=== PATIENT | male | born 1950 | race African-American/Black ===

== ENCOUNTER → 2022-04-01 13:08 | Outpatient (REF) | payer MEDICARE, SELFPAY ==
--- NOTE | 2022-04-01 13:41 | CA_ITS ---
Transthoracic Echocardiogram Patient (Last, First, Middle): Victoriano Patricia, Gender: Male Date of : 1950 Age: 72 Procedure Date: 04/01/2022 Procedure Type: Transthoracic Echocardiogram Location: OP Height: 167.64 cm Weight: 81.65 kg BSA: 1.91 m2 Heart Rate: 65 bpm BP: 138 / 64 mmHg Pediatric Licensed Practical Nurse: DOMO Referring MD: Pam Torres NP Symptoms: unspecified systolic congestive heart failur Study Quality: Adequate w contrast ECG Rhythm: Sinus Conclusions: - The left ventricular systolic function is severely decreased. The visually estimated ejection fraction is between 15-20%. - The apex, apical anterior, apical inferior, basal inferior, apical septum, mid inferoseptal, mid anteroseptal, and basal inferolateral segments are akinetic. - No obvious valvular pathology seen on this study. Findings Procedure Information Contrast agent, definity, is being given per protocol without apparent complications. Left Ventricle Moderately increased left ventricular cavity size. The left ventricular systolic function is severely decreased. The visually estimated ejection fraction is between 15-20%. There is severe global hypokinesis. E/E prime ratio is between 8 and 15 consistent with indeterminate filling pressures. Evidence suggests grade I (mild) diastolic dysfunction. There is mild septal and mild basal asymmetric hypertrophy. Wall Motion Rest Echo Findings The apex, apical anterior, apical inferior, basal inferior, apical septum, mid inferoseptal, mid anteroseptal, and basal inferolateral segments are akinetic. Right Ventricle Normal right ventricular cavity size and systolic function. There is a pacemaker wire seen in the right ventricle. Atria The left atrium is mildly dilated. The right atrium is normal in size. Aortic Valve There is a normal trileaflet aortic valve. There is mild calcification of the aortic valve. There is no aortic valve stenosis. There is trace (trivial) aortic valve regurgitation. Mitral Valve There is mild mitral annular calcification. There is trace mitral valve regurgitation. There is no mitral valve stenosis. Pulmonic Valve The pulmonic valve is likely normal. Tricuspid Valve There is trace tricuspid valve regurgitation. There is no evidence of pulmonary hypertension. Great Vessels The asc aorta is normal in size. Venous The inferior vena cava is normal in size and collapses greater than 50% with inspiration. Pericardium/Pleural There is a small pericardial effusion. Prior Study Comparison No prior study available for comparison. Recommendations, Care & Conclusions No obvious valvular pathology seen on this study. Measurements 2D Linear Measurements IVSd: 1.29 0.6-0.9/0.6-1.0 cm LVIDd: 6.48 3.9-5.3/4.2-5.9 cm LVIDd Index: 3.39 2.4-3.2/2.2-3.1 cm/m2 LVIDs: 4.64 2.0-3.6 cm LVPWd: 0.86 0.7-1.1 cm LA Diam: 3.60 2.7-3.8/3.0-4.0 cm LAIDs Index: 1.88 1.5-2.3 cm/m2 LV Mass: 386.39 67-162/88-224 g LV Mass Index: 202.30 43-95/49-115 g/m2 LVOT Diam: 2.10 3.0+(-)1.3 cm 2D Systolic Function EF 4C: 29.90 >55% EF 2C: 24.60 >55% Mitral Valve MV Pk E: 0.41 MV PK A: 0.60 MV Decel Time: 223.00 E/A: 0.70 E'Lateral: 3.15 E'Medial: 4.03 E/E' Med: 10.20 E/E' Lat: 13.00 PHT: 65.00 MVA PHT: 3.38 Decel Mcminn: 1.84 Aortic Valve AoV Pk Edilson: 1.73 AoV Mn Edilson: 1.17 AoV VTI: 0.33 AoV Pk Grad: 12.00 Aov Mn Grad: 7.00 NANCY Cont.VTI: 1.74 LVOT LVOT Pk Edilson: 0.88 LVOT Mn Edilson: 0.61 LVOT VTI: 0.17 LVOT Pk Grad: 3.00 LVOT Mn Grad: 2.00 LVOT Diam: 2.10 LVOT Area: 3.46 Diastolic Function MV Pk E: 0.41 MV Pk A: 0.60 E/A: 0.70 E'Medial: 4.03 E/E' Med: 10.20 E' Laterial: 3.15 E/E' Lat: 13.00 Right Ventricle TAPSE (mm): 20.30 TVS' Edilson: 11.20 Tricuspid Valve TR Pk Edilson: 2.33 TR Pk Grad: 22.00 RA Press: 3.00 RVSP: 25.00 Great Vessels Aorta Sinus of Valsalva: 3.20 2.0-3.5 cm Ao Asc: 3.50 2.1-3.4 cm Pulmonary Veins Pulm Vein S/D 1.50 Pulmonary Valve PV Pk Edilson: 1.04 Peak PV Grad: 4.00 Updated in Other Vendor System with Status of Final Volodymyr Ortega MD electronically signed on 04/02/2022 1:01:10 PM with status of Final
== END ==
LOC: HO.CARD 13:08
PROVIDERS: Visit Provider Nurse Practitioner Primary Care
DX: I50.20 Unspecified systolic (congestive) heart failure (principal)
CPT/HCPCS: 93306; Q9957

== ENCOUNTER 2022-04-04 15:02 | Emergency (ER) | payer MEDICARE, MEDICAID, SELFPAY ==
--- NOTE | 2022-04-04 | ECG_ITS ---
Test Reason : CHEST PAIN Blood Pressure : / mmHG Vent. Rate : 066 BPM Atrial Rate : 066 BPM P-R Int : 230 ms QRS Dur : 112 ms QT Int : 458 ms P-R-T Axes : 049 -12 052 degrees QTc Int : 480 ms Sinus rhythm with 1st degree A-V block Possible Left atrial enlargement Left axis deviation Minimal voltage criteria for LVH, may be normal variant ( [place] product ) Anteroseptal infarct , age undetermined Abnormal ECG No previous ECGs available Referred By: Generic ED Physician Electronically Signed By:LUIZ WILEY MD
--- NOTE | 2022-04-04 | ECG_ITS ---
Test Reason : REPEAT Blood Pressure : / mmHG Vent. Rate : 065 BPM Atrial Rate : 065 BPM P-R Int : 230 ms QRS Dur : 110 ms QT Int : 456 ms P-R-T Axes : 044 -26 035 degrees QTc Int : 474 ms Sinus rhythm with 1st degree A-V block Possible Left atrial enlargement Minimal voltage criteria for LVH, may be normal variant ( [place] product ) Septal infarct (cited on or before 04-APR-2022) Abnormal ECG When compared with ECG of 04-APR-2022 15:57, No significant change was found Referred By: Generic ED Physician Electronically Signed By:LUIZ WILEY MD
[2022-04-04 15:51] VITALS: BP 124/67; PULSE 74; RESP 18; TEMP 36.7; O2SAT 99; BMI 28.1
[2022-04-04 16:15] LABS: MANUAL DIFF FLAG NO
[2022-04-04 16:16] LABS: Basophils Percent Auto 0.3 % (0-2); Eosinophils Absolute Auto 0.1 X10*3/uL (0.0-0.4); Hematocrit 46.6 % (42.0-52.0); Hemoglobin 15.3 g/dl (14.0-18.0); Imm Gran Abs Auto 0.03 X10*3/uL (0.00-0.03); Imm Gran Pct Auto 0.3 % (0.0-0.4); Lymphocytes Absolute Auto 2.1 X10*3/uL (1.2-4.9); Lymphocytes Percent Auto 22.9 % (20-40); Mean Corpuscular HGB Conc 32.8 g/dl (31.0-36.0); Mean Corpuscular Hemoglobin 30.6 pg (27.0-33.0); Mean Corpuscular Volume 93.2 fL (80.0-98.0); Mean Platelet Volume 9.2 fL (9.4-12.4); Monocytes Absolute Auto 0.8 X10*3/uL (0.1-1.2); Monocytes Percent Auto 8.8 % (2-11); Neutrophils Absolute Auto 6.1 x10*3/uL (2.0-8.3); Neutrophils Percent Auto 66.7 % (45-73); Platelet Count 182 X10*3/uL (160-400); Red Cell Distribution Width 13.2 % (11.0-16.0); White Blood Count 9.1 X10*3/uL (4.8-10.8)
[2022-04-04 16:37] LABS: Alanine Aminotransferase 57 U/L (0-40); Albumin Level 4.4 g/dL (3.5-5.0); Alkaline Phosphatase 104 U/L (39-117); Anion Gap 16 (12-20); Aspartate Amino Transferase 54 U/L (5-37); Bilirubin Total 0.6 mg/dL (0.0-1.0); Blood Urea Nitrogen 15 mg/dL (9-16); Calcium 8.9 mg/dL (8.4-10.2); Carbon Dioxide 26 mmol/L (22-29); Chloride 102 mmol/L (96-108); Creatinine Clr Calc Pharmacy 38.1; Estimated Glomerular Filt Rate 38; Glucose Random 103 mg/dL (60-115); Potassium 3.9 mmol/L (3.3-5.1); Sodium 140 mmol/L (135-145); Total Protein 6.6 g/dL (6.5-8.0)
[2022-04-04 16:42] LABS: Troponin-I High Sensitivity 12.4 ng/L (<3.5-35.0)
--- NOTE | 2022-04-04 17:51 | ED.GENADULT ---
HPI - General Adult General Chief complaint: Altered Mental Status Stated complaint: Blood pressure concerne/Dizziness Time Seen by Provider: 04/04/22 17:41 Source: patient Mode of arrival: ambulatory History of Present Illness HPI narrative: 72-year-old male who presents with experiencing mild dizziness in the morning when getting up from bed that is not been associated with any shortness of breath, fever, chills, chest pain/palpitations and quickly resolves. He is newly moved here from [place] and has had a recent echo which demonstrates LV function which is consistent with a 25% that the patient states that he had 1 year ago. Patient is also mildly concerned because sometimes he is looking at his phone he forgets what he was opening his phone for. He otherwise denies any sort of visual/auditory/speech abnormalities and denies any extremity numbness/tingling/weakness. Patient states he otherwise feels well but was concerned because and these 2 conditions. He currently is seeing a primary care provider in the [facility] system where he had renewal of all of his prescriptions. Related Data Allergies Allergy/AdvReac Type Severity Reaction Status Date / Time No Known Allergies Allergy Verified 04/04/22 17:53 Review of Systems Review of Systems: Pertinent positives and negatives as stated in HPI 10 point review of systems is otherwise negative. PMFSH Past Medical History Source: nursing notes reviewed Medical History CHF (congestive heart failure) COPD (chronic obstructive pulmonary disease) Hypertension Social History Social History Advance Directives: No Advance Directives Information Provided: No Physical Exam ED Vital Signs: Vital Signs - 24 hr 04/04/22 15:51 04/04/22 17:58 Temperature 98.1 F 98.6 F Pulse Rate 74 69 Respiratory Rate 18 16 Blood Pressure 124/67 137/73 Pulse Oximetry 99 97 Oxygen Delivery Method Room Air Room Air BMI result Body Mass Index 28.1 VITAL SIGNS: Reviewed. GENERAL: Well developed, well nourished, in no acute distress. HEAD: Normocephalic/atraumatic EYES: PERRLA, EOMI EARS: Ext canals without abnormality OROPHARYNX: no oral lesions noted, posterior pharynx clear LUNGS: Normal breath sounds. No adventitious sounds or accessory muscle use. SpO2<99> CARDIOVASCULAR: Regular rate and rhythm without noted murmurs, no JVD or lower extremity edema. ABDOMEN: Soft, non-tender, non-distended with bowel sounds. MUSCULOSKELETAL: No tenderness, deformities, or effusions noted on gross inspection. EXTREMITIES: No cyanosis, clubbing or edema. SKIN: Inspection of the skin reveals no rashes NEUROLOGIC: Alert and oriented x 4. Strength and sensation to light touch were grossly intact x 4. Course Course Course Narrative: 72-year-old male with history and clinical presentation consistent with benign vertigo and patient was instructed on getting up from a lying position to reduce the occurrence of dizziness. On review of all investigations there is no evidence of infection, anemia, or arrhythmia. Patient has a follow-up appointment in April with cardiology and he was strongly encouraged to call the primary care provider on Wednesday morning to set up an appointment for re-evaluation further outpatient management. He was reassured regarding his minor lapses and states that he feels better about that. There are no focal findings and patient is not having chest pain and is otherwise hemodynamically stable. Medical Decision Making Lab Data Result diagrams: 04/04/22 16:10 04/04/22 16:10 Labs: Lab Results 04/04/22 04/04/22 04/04/22 Range/Units 16:10 16:10 16:10 WBC 9.1 (4.8-10.8) X10*3/uL RBC 5.00 (4.60-5.80) X10*6/uL Hgb 15.3 (14.0-18.0) g/dl Hct 46.6 (42.0-52.0) % MCV 93.2 (80.0-98.0) fL MCH 30.6 (27.0-33.0) pg MCHC 32.8 (31.0-36.0) g/dl RDW 13.2 (11.0-16.0) % Plt Count 182 (160-400) X10*3/uL MPV 9.2 L (9.4-12.4) fL Immature Gran % (Auto) 0.3 (0.0-0.4) % Neut % (Auto) 66.7 (45-73) % Lymph % (Auto) 22.9 (20-40) % [place] % (Auto) 8.8 (2-11) % Eos % (Auto) 1.0 (0-4) % Baso % (Auto) 0.3 (0-2) % Lymph # (Auto) 2.1 (1.2-4.9) X10*3/uL [place] # (Auto) 0.8 (0.1-1.2) X10*3/uL Eos # (Auto) 0.1 (0.0-0.4) X10*3/uL Baso # (Auto) 0.0 (0.0-0.2) X10*3/uL Abs Immat Gran (auto) 0.03 (0.00-0.03) X10*3/uL Absolute Neuts (auto) 6.1 (2.0-8.3) x10*3/uL Absolute Nucleated RBC 0.000 (0.0-0.012) X10*3/uL Nucleated RBC % (auto) 0.0 (0.0-0.2) /100WBC PT (10.0-13.1) SEC INR (0.9-1.1) APTT (26.0-36.4) SEC Sodium 140 (135-145) mmol/L Potassium 3.9 (3.3-5.1) mmol/L Chloride 102 (96-108) mmol/L Carbon Dioxide 26 (22-29) mmol/L Anion Gap 16 (12-20) BUN 15 (9-16) mg/dL Creatinine 1.79 H (0.5-1.4) mg/dL Estim Creat Clear Calc 38.1 Estimated GFR 38 Random Glucose 103 (60-115) mg/dL Calcium 8.9 (8.4-10.2) mg/dL Total Bilirubin 0.6 (0.0-1.0) mg/dL AST 54 H (5-37) U/L ALT 57 H (0-40) U/L Alkaline Phosphatase 104 (39-117) U/L Troponin I High Sens 12.4 (<3.5-35.0) ng/L Total Protein 6.6 (6.5-8.0) g/dL Albumin 4.4 (3.5-5.0) g/dL COVID-19 ([place]) (Negative) COVID-19 Clin Com 04/04/22 04/04/22 Range/Units 18:22 18:24 WBC (4.8-10.8) X10*3/uL RBC (4.60-5.80) X10*6/uL Hgb (14.0-18.0) g/dl Hct (42.0-52.0) % MCV (80.0-98.0) fL MCH (27.0-33.0) pg MCHC (31.0-36.0) g/dl RDW (11.0-16.0) % Plt Count (160-400) X10*3/uL MPV (9.4-12.4) fL Immature Gran % (Auto) (0.0-0.4) % Neut % (Auto) (45-73) % Lymph % (Auto) (20-40) % [place] % (Auto) (2-11) % Eos % (Auto) (0-4) % Baso % (Auto) (0-2) % Lymph # (Auto) (1.2-4.9) X10*3/uL [place] # (Auto) (0.1-1.2) X10*3/uL Eos # (Auto) (0.0-0.4) X10*3/uL Baso # (Auto) (0.0-0.2) X10*3/uL Abs Immat Gran (auto) (0.00-0.03) X10*3/uL Absolute Neuts (auto) (2.0-8.3) x10*3/uL Absolute Nucleated RBC (0.0-0.012) X10*3/uL Nucleated RBC % (auto) (0.0-0.2) /100WBC PT 12.6 (10.0-13.1) SEC INR 1.1 (0.9-1.1) APTT 30.8 (26.0-36.4) SEC Sodium (135-145) mmol/L Potassium (3.3-5.1) mmol/L Chloride (96-108) mmol/L Carbon Dioxide (22-29) mmol/L Anion Gap (12-20) BUN (9-16) mg/dL Creatinine (0.5-1.4) mg/dL Estim Creat Clear Calc Estimated GFR Random Glucose (60-115) mg/dL Calcium (8.4-10.2) mg/dL Total Bilirubin (0.0-1.0) mg/dL AST (5-37) U/L ALT (0-40) U/L Alkaline Phosphatase (39-117) U/L Troponin I High Sens (<3.5-35.0) ng/L Total Protein (6.5-8.0) g/dL Albumin (3.5-5.0) g/dL COVID-19 ([place]) Negative (Negative) COVID-19 Clin Com See Note Discharge Plan Discharge Clinical Impression: Vertigo Patient Disposition: Home, Self-Care Instructions: Vertigo (ED), Lightheadedness (ED) Additional Instructions: 1. Resume all home medications as prescribed. 2. Follow-up with your scheduled appointments. Return to the ER for worsening symptoms. Referrals: [facility] [Provider Group]
[2022-04-04 17:58] VITALS: BP 137/73; PULSE 69; RESP 16; TEMP 37; O2SAT 97
[2022-04-04 18:46] LABS: COVID-19 Test Negative (Negative)
[2022-04-04 18:49] LABS: INTERNATIONAL NORM RATIO 1.1 (0.9-1.1); Prothrombin Time 12.6 SEC (10.0-13.1)
[2022-04-04 18:52] LABS: Partial Thromboplastin Time 30.8 SEC (26.0-36.4)
[2022-04-04 20:08] VITALS: BP 125/63; PULSE 71; RESP 16; TEMP 36.7; O2SAT 98
== END 2022-04-04 20:10 | disposition home or self-care (01) ==
PROVIDERS: Emergency Provider Student in an Organized Health Care Education/Training Program
DX: R42 Dizziness and giddiness (principal); I11.0 Hypertensive heart disease with heart failure; I50.9 Heart failure, unspecified; Z20.822 Contact with and (suspected) exposure to COVID-19
CPT/HCPCS: 36415; 80053; 84484; 85025; 85610; 85730; 87635; 93005; 99283; 99284

== ENCOUNTER 2022-09-28 23:44 | Emergency (ER) | payer MEDICARE, MEDICAID, SELFPAY ==
--- NOTE | ~2022-09-28 | XR_ITS ---
EXAMINATION: XR CHEST CLINICAL INFORMATION: Pneumonia COMPARISON: None available. TECHNIQUE: 2 Frontal view of the chest was obtained. FINDINGS: Rotated lordotic view. Left pacemaker, lead extending to the right ventricle. Overlying cardiac leads. Stable cardiomediastinal size, allowing for difference in positioning. Hazy opacities in the medial aspect of the right lower lung. No dense consolidation left lung. No effusion, edema. No pneumothorax. There is lucency projected in the retrocardiac region, from possible hiatal hernia. XR/XR chest 1V IMPRESSION: Right basilar opacity concerning for infiltrate/pneumonia.
[2022-09-29] VITALS (7 sets, daily range): BP systolic 125–138; BP diastolic 63–81; PULSE 76–92; RESP 14–17; TEMP 36.4–37.1; O2SAT 94–97; BMI 29.0
--- NOTE | 2022-09-29 04:50 | PC.NURSE ---
this rn assumed care of pt @ 0430 from waiting room. pt placed on monitor technician. vss. pt changed into hospital gown. pt calm and cooperative resting on stretcher. awaiting to be seen by ed provider
--- NOTE | 2022-09-29 04:54 | PC.NURSE ---
pt denies SOB to this rn. though pt does report hx of copd
--- OUTSIDE RECORDS SUMMARY | 2022-09-29 05:12 | XMS_ITS | Continuity of Care Document ---
Author Name Unknown Organization [facility] Address [address] [place] [phone] Care Team Providers Care [employer] Lieutenant Name Role Phone Marta Kendall MD Primary Care Physician Encounter [facility] Date(s): 02/05/22 - 03/07/22 [facility] [address] [place] [id number] Patient Care team information Personnel Name: Marta Kendall MD Address: Address: [address] [place] [address] [address] [place], [place] [address]
--- NOTE | 2022-09-29 06:04 | ECG_ITS ---
Test Reason : HERNANZ Blood Pressure : / mmHG Vent. Rate : 081 BPM Atrial Rate : 081 BPM P-R Int : 248 ms QRS Dur : 118 ms QT Int : 422 ms P-R-T Axes : 055 -42 069 degrees QTc Int : 490 ms Sinus rhythm with 1st degree A-V block with occasional Premature ventricular complexes Left axis deviation Minimal voltage criteria for LVH, may be normal variant ( [place] product ) Septal infarct (cited on or before 04-APR-2022) Abnormal ECG When compared with ECG of 04-APR-2022 16:12, Premature ventricular complexes are now Present Referred By: Generic ED Physician Electronically Signed By:TESSIE WEBER MD
[2022-09-29 06:33] LABS: MANUAL DIFF FLAG NO
[2022-09-29 06:36] LABS: Basophils Percent Auto 0.4 % (0-2); Eosinophils Absolute Auto 0.1 X10*3/uL (0.0-0.4); Eosinophils Percent Auto 0.9 % (0-4); Hemoglobin 14.6 g/dl (14.0-18.0); Imm Gran Abs Auto 0.03 X10*3/uL (0.00-0.03); Imm Gran Pct Auto 0.3 % (0.0-0.4); Lymphocytes Percent Auto 26.8 % (20-40); Mean Corpuscular Volume 94.3 fL (80.0-98.0); Mean Platelet Volume 9.5 fL (9.4-12.4); Monocytes Absolute Auto 0.9 X10*3/uL (0.1-1.2); Monocytes Percent Auto 8.5 % (2-11); Neutrophils Percent Auto 63.1 % (45-73); Platelet Count 150 X10*3/uL (160-400); Red Blood Count 4.56 X10*6/uL (4.60-5.80); Red Cell Distribution Width 13.2 % (11.0-16.0); White Blood Count 11.1 X10*3/uL (4.8-10.8)
[2022-09-29 06:51] LABS: Alanine Aminotransferase 24 U/L (0-40); Albumin Level 3.7 g/dL (3.5-5.0); Alkaline Phosphatase 108 U/L (39-117); Anion Gap 13 (12-20); Aspartate Amino Transferase 27 U/L (5-37); Bilirubin Total 0.6 mg/dL (0.0-1.0); Blood Urea Nitrogen 19 mg/dL (9-16); Calcium 9.7 mg/dL (8.4-10.2); Carbon Dioxide 22 mmol/L (22-29); Chloride 109 mmol/L (96-108); Estimated Glomerular Filt Rate 44; Glucose Random 111 mg/dL (60-115); Potassium 3.5 mmol/L (3.3-5.1); Sodium 140 mmol/L (135-145); Total Protein 5.6 g/dL (6.5-8.0)
[2022-09-29 06:55] LABS: Troponin-I High Sensitivity 30.1 ng/L (<3.5-35.0)
--- NOTE | 2022-09-29 06:58 | ED.GENADULT ---
HPI - General Adult General Chief complaint: Dyspnea Stated complaint: Sob/Anxiety Time Seen by Provider: 09/29/22 06:41 Source: patient Mode of arrival: ambulatory Limitations: no limitations History of Present Illness HPI narrative: 72-year-old male history of anxiety, hypertension, and myocardial infarction presents to ED for anxiety exacerbation/shortness of breath. Patient states last night he started thinking about his son who 3 years ago and he started crying, sweating, and having shortness of breath described as panic attack. Patient states this occurred around 21:00. Patient states since then he has been asymptomatic. Patient came this morning to be evaluated due to cardiac history of heart attack 10 years ago. Patient not suicidal homicidal. Patient presently once again is asymptomatic. Patient denies any leg swelling, calf pain, coughing up blood, fever, chills, chest pain/shortness of breath on exertion, recent long travel, recent surgery, history of blood clots. Related Data Previous Rx's Medication Instructions Recorded amoxicillin 500 mg capsule 1,000 mg PO TID 5 days #30 caps 09/29/22 doxycycline hyclate 100 mg tablet 100 mg PO BID 7 days #14 tabs 09/29/22 Allergies Allergy/AdvReac Type Severity Reaction Status Date / Time No Known Allergies Allergy Verified 04/04/22 17:53 Review of Systems Review of Systems: Resolved anxiety/shortness of breath. Yes all other systems are reviewed and are negative [facility] Past Medical History Medical History CHF (congestive heart failure) COPD (chronic obstructive pulmonary disease) Hypertension Physical Exam ED Vital Signs: Vital Signs - 24 hr 09/29/22 00:01 09/29/22 04:33 09/29/22 06:04 Temperature 97.5 F 98.4 F 98.7 F Pulse Rate 92 77 82 Respiratory Rate 17 15 14 Blood Pressure 126/67 129/63 134/69 Pulse Oximetry 97 94 97 Oxygen Delivery Method Room Air Room Air Room Air 09/29/22 07:10 09/29/22 09:00 09/29/22 10:16 Temperature 98.7 F 98.6 F 98.6 F Pulse Rate 84 77 76 Respiratory Rate 15 16 14 Blood Pressure 134/71 125/81 138/71 Pulse Oximetry 96 95 97 Oxygen Delivery Method Room Air Room Air Room Air 09/29/22 11:04 Temperature 98.3 F Pulse Rate 78 Respiratory Rate 16 Blood Pressure 125/68 Pulse Oximetry 97 Oxygen Delivery Method Room Air BMI result Body Mass Index 29.0 Const General: cooperative, healthy appearing, comfortable, no acute distress, well developed, alert, awake and Physically active Orientation/consciousness: oriented to person, oriented to place, oriented to time and patient oriented x3 [facility] Head: Yes normal to inspection, Yes No palpable skull fracture present, Yes normocephalic, Yes atraumatic and No abrasion Eyes General: appearance normal, both eyes and all related structures Neck Neck: Yes normal visual inspection, Yes full ROM, Yes no lymphadenopathy, Yes no meningeal signs, Yes trachea midline, Yes supple, No anterior neck swelling and No tender Chest Chest palpation & inspection: normal inspection of the chest and normal palpation of entire chest wall Resp Effort & Inspection: normal respiratory effort and able to speak in complete sentences Auscultation: clear to auscultation bilaterally Cardio Jugular venous distension: no JVD Heart sounds: S1 normal heart sound present GI Inspection: Yes normal to inspection and No abdominal wall ecchymosis Palpation (GI): Soft to palpation, not firm, nontender, no guarding and not rigid General: No CVA tenderness and Yes no CVA tenderness Back/Spine/Pelvis Back: no CVA tenderness, No CVA tenderness and No back tenderness Skin General skin exam: no rashes or lesions noted and elasticity normal Neuro General: oriented to person, oriented to place, oriented to time, patient oriented x3, gait normal, tone normal, moves all extremities, Normal light touch and pain sensation, no meningeal signs, no focal motor deficits, CN's II-XI intact bilaterally and normal sensation to monofilament Extrem Other: Bilateral lower extremity negative for swelling, pitting edema, or calf tenderness. General: Yes normal to inspection and Yes full ROM Psych Appearance: grossly normal, well kempt and not disheveled Course Course Course Narrative: 72-year-old male presents to ED for seem like anxiety exacerbation. Patient presently is symptomatic not in any distress. Reevaluation(s) Reevaluation #1: Two troponin is negative. EKG negative STEMI. Chest x-ray positive pneumonia. Patient has CKD. Discharged with p.o. antibiotics. no need of admission Time: 11:50 Medical Decision Making Medical Decision Making MDM Narrative: 72-year-old male presents to the ED for anxiety symptoms. Patient states shortness of breath and diaphoresis after thickened by his son. Patient's chest x-ray shows right-sided pneumonia. Kurb score is 0. Vital signs fall. No need for admission. Differential Diagnosis Differential Diagnoses: The differential diagnosis associated with the presentation includes (Pneumonia, CHF, myocardial infarction, anemia, anxiety, PE,) Admission/Observation Consideration of admission/observation: Escalation of care including admission/observation considered Lab Data MDM Lab Attestation statement: I reviewed the patient's lab results. 09/29/22 06:29 09/29/22 06:29 Labs: Lab Results 09/29/22 09/29/22 09/29/22 Range/Units 06:29 06:29 06:29 WBC 11.1 H (4.8-10.8) X10*3/uL RBC 4.56 L (4.60-5.80) X10*6/uL Hgb 14.6 (14.0-18.0) g/dl Hct 43.0 (42.0-52.0) % MCV 94.3 (80.0-98.0) fL MCH 32.0 (27.0-33.0) pg MCHC 34.0 (31.0-36.0) g/dl RDW 13.2 (11.0-16.0) % Plt Count 150 L (160-400) X10*3/uL MPV 9.5 (9.4-12.4) fL Immature Gran % (Auto) 0.3 (0.0-0.4) % Neut % (Auto) 63.1 (45-73) % Lymph % (Auto) 26.8 (20-40) % [place] % (Auto) 8.5 (2-11) % Eos % (Auto) 0.9 (0-4) % Baso % (Auto) 0.4 (0-2) % Lymph # (Auto) 3.0 (1.2-4.9) X10*3/uL [place] # (Auto) 0.9 (0.1-1.2) X10*3/uL Eos # (Auto) 0.1 (0.0-0.4) X10*3/uL Baso # (Auto) 0.0 (0.0-0.2) X10*3/uL Abs Immat Gran (auto) 0.03 (0.00-0.03) X10*3/uL Absolute Neuts (auto) 7.0 (2.0-8.3) x10*3/uL Absolute Nucleated RBC 0.000 (0.0-0.012) X10*3/uL Nucleated RBC % (auto) 0.0 (0.0-0.2) /100WBC Sodium 140 (135-145) mmol/L Potassium 3.5 (3.3-5.1) mmol/L Chloride 109 H (96-108) mmol/L Carbon Dioxide 22 (22-29) mmol/L Anion Gap 13 (12-20) BUN 19 H (9-16) mg/dL Creatinine 1.57 H (0.5-1.4) mg/dL Estim Creat Clear Calc 44.0 Estimated GFR 44 Random Glucose 111 (60-115) mg/dL Calcium 9.7 D (8.4-10.2) mg/dL Total Bilirubin 0.6 (0.0-1.0) mg/dL AST 27 (5-37) U/L ALT 24 (0-40) U/L Alkaline Phosphatase 108 (39-117) U/L Troponin I High Sens 30.1 (<3.5-35.0) ng/L B-Natriuretic Peptide (<100) pg/mL Total Protein 5.6 L (6.5-8.0) g/dL Albumin 3.7 (3.5-5.0) g/dL 09/29/22 09/29/22 Range/Units 06:29 08:48 WBC (4.8-10.8) X10*3/uL RBC (4.60-5.80) X10*6/uL Hgb (14.0-18.0) g/dl Hct (42.0-52.0) % MCV (80.0-98.0) fL MCH (27.0-33.0) pg MCHC (31.0-36.0) g/dl RDW (11.0-16.0) % Plt Count (160-400) X10*3/uL MPV (9.4-12.4) fL Immature Gran % (Auto) (0.0-0.4) % Neut % (Auto) (45-73) % Lymph % (Auto) (20-40) % [place] % (Auto) (2-11) % Eos % (Auto) (0-4) % Baso % (Auto) (0-2) % Lymph # (Auto) (1.2-4.9) X10*3/uL [place] # (Auto) (0.1-1.2) X10*3/uL Eos # (Auto) (0.0-0.4) X10*3/uL Baso # (Auto) (0.0-0.2) X10*3/uL Abs Immat Gran (auto) (0.00-0.03) X10*3/uL Absolute Neuts (auto) (2.0-8.3) x10*3/uL Absolute Nucleated RBC (0.0-0.012) X10*3/uL Nucleated RBC % (auto) (0.0-0.2) /100WBC Sodium (135-145) mmol/L Potassium (3.3-5.1) mmol/L Chloride (96-108) mmol/L Carbon Dioxide (22-29) mmol/L Anion Gap (12-20) BUN (9-16) mg/dL Creatinine (0.5-1.4) mg/dL Estim Creat Clear Calc Estimated GFR Random Glucose (60-115) mg/dL Calcium (8.4-10.2) mg/dL Total Bilirubin (0.0-1.0) mg/dL AST (5-37) U/L ALT (0-40) U/L Alkaline Phosphatase (39-117) U/L Troponin I High Sens 34.3 (<3.5-35.0) ng/L B-Natriuretic Peptide 118 H (<100) pg/mL Total Protein (6.5-8.0) g/dL Albumin (3.5-5.0) g/dL Independent Interpretation I performed an independent interpretation of an: EKG (Sinus first-degree AV block. PVC. Ventricular rate 81. Pr interval 248. QRS 118. QTC 490. Negative STEMI ) Radiology Impression Discussion of test interpretation with radiology: I have reviewed the radiologist's reading. Prescription Management I considered prescription management with: Antibiotic Discharge Plan Discharge Clinical Impression: Community acquired pneumonia Patient Disposition: Home, Self-Care Instructions: Community Acquired Pneumonia (ED) Additional Instructions: Return to the ED immediately for any shortness of breath, chest pain, coughing up blood, leg swelling, calf pain, fever, chills, weakness, dizziness, or any other concerning symptoms. Please follow-up with primary care provider Prescriptions: New amoxicillin 500 mg capsule 1,000 mg PO TID 5 Days Qty: 30 0RF doxycycline hyclate 100 mg tablet 100 mg PO BID 7 Days Qty: 14 0RF Interventions: ED Discharge Assessment Last Done: 09/29/22 12:14 Discharge Date/Time: 09/29/22 12:15 Print Language: [place]
[2022-09-29 07:18] LABS: B Type Natriuretic Peptide 118 pg/mL (<100)
--- NOTE | 2022-09-29 09:06 | PC.NURSE ---
Pt on stretcher, airway open and patent, no obvious signs of distress, no difficulty/labored breathing, pt appears to be resting. Pt a&ox4, skin normal for ethnicity, warm, and dry. Lung sounds clr bilaterally all chang. Heart sounds normal. Bowel sounds present all chang. No edema noted. Pt denies pain at this time.
[2022-09-29 09:25] LABS: Troponin-I High Sensitivity 34.3 ng/L (<3.5-35.0)
== END 2022-09-29 12:15 | disposition home or self-care (01) ==
PROVIDERS: Physician Assistant; Emergency Provider Emergency Medicine
DX: J18.9 Pneumonia, unspecified organism (principal); R06.02 Shortness of breath; F41.1 Generalized anxiety disorder; F43.0 Acute stress reaction; R94.31 Abnormal electrocardiogram [ECG] [EKG]; Z79.899 Other long term (current) drug therapy
CPT/HCPCS: 36415; 71045; 80053; 83880; 84484; 85025; 93005; 99283; 99284

== ENCOUNTER 2022-10-01 01:26 | Emergency (ER) | payer MEDICARE, MEDICAID, SELFPAY ==
[2022-10-01 01:28] VITALS: BP 115/70; PULSE 106; RESP 18; TEMP 36; O2SAT 96; BMI 25.4
[2022-10-01 02:00] VITALS: BP 120/72; PULSE 98; RESP 20; O2SAT 96
--- NOTE | 2022-10-01 03:18 | PC.NURSE ---
hand off to soniya guthrie
--- NOTE | 2022-10-01 05:49 | ED.BACK ---
HPI - Back Pain/Injury General Chief Complaint: Back Pain/Injury Stated Complaint: back pain from inj Time Seen by Provider: 10/01/22 05:45 Source: patient Mode of arrival: ambulatory Limitations: no limitations History of Present Illness HPI Narrative: Patient comes to the emergency room complaining of muscle spasms on the left side of the back. Patient states it has been going on for about a year intermittently but much worse over last 2 days. Patient denies any injury. Patient states that if he sleeps any certain ways it triggers the spasms. If he tries to sit up from a laying down position it hurts more. Patient denies flank pain, no urinary/fecal incontinence or retention. Denies any spinal tenderness, no trauma. Related Data Previous Rx's Medication Instructions Recorded amoxicillin 500 mg capsule 1,000 mg PO TID 5 days #30 caps 09/29/22 doxycycline hyclate 100 mg tablet 100 mg PO BID 7 days #14 tabs 09/29/22 baclofen 10 mg tablet 10 mg PO TID PRN muscle spasm #10 10/01/22 tabs tramadol 50 mg tablet 50 mg PO Q8H PRN pain #10 tabs 10/01/22 Allergies Allergy/AdvReac Type Severity Reaction Status Date / Time No Known Allergies Allergy Verified 04/04/22 17:53 Review of Systems Review of Systems: Constitutional : No Weight loss, No Fever, No Chills, No Night Sweats, No Fatigue, No Malaise ENT/Mouth : No Hearing loss, No Ear Pain, No Nasal Congestion, No Sinus Pain, No Hoarseness, No sore throat, No Rhinorrhea, No Swallowing Difficulty Eyes: No Eye Pain, No Swelling, No Redness, No Foreign Body, No Discharge, No Vision Changes Cardiovascular : No Chest Pain, No SOB, No Dyspnea on Exertion, No Orthopnea, No Edema, No Palpitations Respiratory : No Cough, No Sputum, No Wheezing, No Smoke Exposure, No Dyspnea Gastrointestinal : No Nausea, No Vomiting, No Diarrhea, No Constipation, No abdominal Pain, No Hematochezia, No Melena Genitourinary : no irregular bleeding, No Dysuria, No Urinary Frequency, No Hematuria, No Urinary Incontinence, No Urgency, No Flank Pain, No Urinary Flow Changes, No Hesitancy Musculoskeletal : Complaining of left lower back spasms, No joint pain, No Myalgias, No Joint Swelling Skin : No Skin Lesions, No rash Neuro : No Weakness, No Numbness, No Paresthesias, No Loss of Consciousness, No Dizziness, No Headache Psych : No Anxiety/Panic, No Depression, No SI/HI/AH/VH, No Social Issues, Heme/Lymph: No Bruising, No Bleeding,No Lymphadenopathy Endocrine : No Polyuria, No Polydipsia, No Temperature Intolerance [facility] Past Medical History Medical History CHF (congestive heart failure) COPD (chronic obstructive pulmonary disease) Hypertension Social History Social History Smoked in Last 30 Days: Yes Use of substances other than those prescribed or required for medical reasons: No Advance Directives: No Advance Directives Information Provided: Yes Physical Exam Vital Signs: Vital Signs: Last Vital Signs Temp 96.8 F 10/01/22 01:28 Pulse 98 10/01/22 02:00 Resp 20 10/01/22 02:00 BP 120/72 10/01/22 02:00 Pulse Ox 96 10/01/22 02:00 O2 Del Method Room Air 10/01/22 02:00 BMI result Body Mass Index 25.4 Const: Other: Appearance: Alert. Oriented X3. No acute distress. Eyes: Pupils equal, round and reactive to light. ENT: Pharynx normal. Neck: Normal inspection. Neck supple. No lymph nodes noted. No crepitus CVS: Normal heart rate and rhythm. Pulses normal. Normal S1 and S2 Respiratory: No respiratory distress. Breath sounds normal. No Wheezing. No rales Abdomen: Soft and nontender. No rigidity. No distention. Back: Palpable spasms over the paraspinal muscles on the left side of the back Skin: Skin warm and dry. Normal skin color. Normal skin turgor. Extremities: No lower extremity edema. No Lacerations. No Rash Neuro: Oriented X 3. No motor deficit. No sensory deficit. Moving all extremities. No slurred speech. CN 2 through 12 grossly intact Psych: calm, cooperative, normal affect Medications Administered Discontinued Medications Generic Name Dose Route Start Last Admin Trade Name Freq PRN Reason Stop Dose Admin Diazepam 2 mg 10/01/22 05:48 10/01/22 05:58 Diazepam 2 Mg Tablet PO 10/01/22 05:49 2 mg ONCE ONE Administration Morphine Sulfate 2 mg 10/01/22 05:48 10/01/22 05:57 Morphine Sulfate 2 Mg/Ml Cartridge IM 10/01/22 05:49 2 mg ONCE ONE Administration Protocol Medical Decision Making Medical Decision Making [facility] Narrative: -patient has spasms, no cervical/thoracic/lumbar tenderness. Imaging is not indicated at this time. -patient given morphine and diazepam. Will re-evaluate. Discharge Plan Discharge Clinical Impression: Back muscle spasm Patient Disposition: Home, Self-Care Instructions: Muscle Spasm (ED) Additional Instructions: Please follow-up with your primary care physician tomorrow. If you have any worsening or new symptoms, please return to the emergency room or call 911 Prescriptions: New tramadol 50 mg tablet 50 mg PO Q8H PRN (Reason: pain) Qty: 10 0RF baclofen 10 mg tablet 10 mg PO TID PRN (Reason: muscle spasm) Qty: 10 0RF No Action amoxicillin 500 mg capsule 1,000 mg PO TID 5 Days Qty: 30 0RF doxycycline hyclate 100 mg tablet 100 mg PO BID 7 Days Qty: 14 0RF
[2022-10-01] MEDS: Morphine Sulfate 2 MG/ML CARTRIDGE IM (05:57)
[2022-10-01] MEDS: diazePAM 2 MG TABLET PO (05:58)
[2022-10-01 06:12] VITALS: BP 105/45; PULSE 88; RESP 16; TEMP 36.9; O2SAT 95
== END 2022-10-01 06:24 | disposition home or self-care (01) ==
PROVIDERS: Emergency Provider Emergency Medicine
DX: M62.830 Muscle spasm of back (principal); I11.0 Hypertensive heart disease with heart failure; I50.9 Heart failure, unspecified
CPT/HCPCS: 96372; 99284; J2270

== ENCOUNTER 2022-10-23 16:50 | Emergency (ER) | payer MEDICARE, MEDICAID, SELFPAY ==
--- NOTE | ~2022-10-23 | XR_ITS ---
EXAMINATION: XR CHEST CLINICAL INFORMATION: Chest pain COMPARISON: X-ray 09/29/2022 TECHNIQUE: Frontal view of the chest was obtained. FINDINGS: Rotated positioning. Mild prominence of the cardiac silhouette, accentuated by technique. Pacemaker with lead extending to the right ventricle. Lungs are clear. No focal consolidation, effusion, edema or pneumothorax. XR/XR chest 1V IMPRESSION: No evidence of acute pulmonary process.
--- NOTE | 2022-10-23 16:52 | ED.CHESTPAIN ---
HPI - Chest Pain General Chief Complaint: Chest Pain Stated Complaint: CHEST PAIN Time Seen by Provider: 10/23/22 16:52 Source: patient Mode of arrival: ambulatory Limitations: no limitations History of Present Illness HPI narrative: Patient with history of AFib on Eliquis, status post pacemaker 2 years ago was resting at home got up from the sofa notice my chest pain in the mid chest no radiation felt heavy deep pressure with pounding feeling lasted for 5 minutes, no shortness of breath no palpitation no diaphoresis no nausea/ vomiting patient was unable to check his pulse but was irregular Related Data Previous Rx's Medication Instructions Recorded amoxicillin 500 mg capsule 1,000 mg PO TID 5 days #30 caps 09/29/22 doxycycline hyclate 100 mg tablet 100 mg PO BID 7 days #14 tabs 09/29/22 baclofen 10 mg tablet 10 mg PO TID PRN muscle spasm #10 10/01/22 tabs tramadol 50 mg tablet 50 mg PO Q8H PRN pain #10 tabs 10/01/22 Allergies Allergy/AdvReac Type Severity Reaction Status Date / Time No Known Allergies Allergy Verified 10/23/22 17:14 Review of Systems Review of Systems: Yes all other systems are reviewed and are negative [facility] Past Medical History Medical History CHF (congestive heart failure) COPD (chronic obstructive pulmonary disease) Hypertension Social History Social History Advance Directives: No Advance Directives Information Provided: No Physical Exam Vital Signs: Vital Signs: Last Vital Signs Temp 98.4 F 10/23/22 20:51 Pulse 65 10/23/22 20:51 Resp 13 10/23/22 20:51 BP 137/75 10/23/22 20:51 Pulse Ox 97 10/23/22 20:51 O2 Del Method Room Air 10/23/22 20:51 BMI result Body Mass Index 28.2 Appearance: Alert. Oriented X3. No acute distress. Eyes: No pallor or icterus ENT: Pharynx normal. Oral Mucosa moist Neck: Normal inspection. Neck supple. CVS: Normal heart rate and rhythm. Pulses normal. Respiratory: No respiratory distress. Equal air entry bilateral, no wheezing/rales/rhonchi Abdomen: Soft and nontender. Bowel sounds are present, no mass palpable, no CVA tenderness Skin: Skin warm and dry. Normal skin color. Normal skin turgor. Extremities: No lower extremity edema. No calf tenderness Neuro: Oriented X 3. No motor deficit. Medical Decision Making Medical Decision Making [facility] Narrative: Patient with chest pain at rest lasted for few minutes with history of AFib with slight pounding feeling in the chest likely from the atrial fibrillation 2 sets of cardiac enzymes negative patient chest pain-free after arrival will discharge patient home advised to follow with hat measurer Differential Diagnosis AFib/non-STEMI/STEMI/CHF Lab Data [facility] Lab Attestation statement: I reviewed the patient's lab results. 10/23/22 17:21 10/23/22 17:21 Labs: Lab Results 10/23/22 10/23/22 10/23/22 Range/Units 17:21 17:21 17:21 WBC 6.7 (4.8-10.8) X10*3/uL RBC 4.96 (4.60-5.80) X10*6/uL Hgb 15.4 (14.0-18.0) g/dl Hct 45.9 (42.0-52.0) % MCV 92.5 (80.0-98.0) fL MCH 31.0 (27.0-33.0) pg MCHC 33.6 (31.0-36.0) g/dl RDW 13.5 (11.0-16.0) % Plt Count 160 (160-400) X10*3/uL MPV 9.5 (9.4-12.4) fL Immature Gran % (Auto) 0.1 (0.0-0.4) % Neut % (Auto) 57.6 (45-73) % Lymph % (Auto) 31.3 (20-40) % [place] % (Auto) 8.8 (2-11) % Eos % (Auto) 1.6 (0-4) % Baso % (Auto) 0.6 (0-2) % Lymph # (Auto) 2.1 (1.2-4.9) X10*3/uL [place] # (Auto) 0.6 (0.1-1.2) X10*3/uL Eos # (Auto) 0.1 (0.0-0.4) X10*3/uL Baso # (Auto) 0.0 (0.0-0.2) X10*3/uL Abs Immat Gran (auto) 0.01 (0.00-0.03) X10*3/uL Absolute Neuts (auto) 3.8 (2.0-8.3) x10*3/uL Absolute Nucleated RBC 0.000 (0.0-0.012) X10*3/uL Nucleated RBC % (auto) 0.0 (0.0-0.2) /100WBC PT 13.2 H (10.0-13.1) SEC INR 1.1 (0.9-1.1) Sodium 142 (135-145) mmol/L Potassium 3.5 (3.3-5.1) mmol/L Chloride 109 H (96-108) mmol/L Carbon Dioxide 25 (22-29) mmol/L Anion Gap 12 (12-20) BUN 9 (9-16) mg/dL Creatinine 1.34 (0.5-1.4) mg/dL Estim Creat Clear Calc 50.9 Estimated GFR 52 Random Glucose 91 (60-115) mg/dL Calcium 9.3 (8.4-10.2) mg/dL Magnesium 2.0 (1.6-2.6) mg/dL Troponin I High Sens (<3.5-35.0) ng/L B-Natriuretic Peptide (<100) pg/mL 10/23/22 10/23/22 10/23/22 Range/Units 17:21 17:21 19:42 WBC (4.8-10.8) X10*3/uL RBC (4.60-5.80) X10*6/uL Hgb (14.0-18.0) g/dl Hct (42.0-52.0) % MCV (80.0-98.0) fL MCH (27.0-33.0) pg MCHC (31.0-36.0) g/dl RDW (11.0-16.0) % Plt Count (160-400) X10*3/uL MPV (9.4-12.4) fL Immature Gran % (Auto) (0.0-0.4) % Neut % (Auto) (45-73) % Lymph % (Auto) (20-40) % [place] % (Auto) (2-11) % Eos % (Auto) (0-4) % Baso % (Auto) (0-2) % Lymph # (Auto) (1.2-4.9) X10*3/uL [place] # (Auto) (0.1-1.2) X10*3/uL Eos # (Auto) (0.0-0.4) X10*3/uL Baso # (Auto) (0.0-0.2) X10*3/uL Abs Immat Gran (auto) (0.00-0.03) X10*3/uL Absolute Neuts (auto) (2.0-8.3) x10*3/uL Absolute Nucleated RBC (0.0-0.012) X10*3/uL Nucleated RBC % (auto) (0.0-0.2) /100WBC PT (10.0-13.1) SEC INR (0.9-1.1) Sodium (135-145) mmol/L Potassium (3.3-5.1) mmol/L Chloride (96-108) mmol/L Carbon Dioxide (22-29) mmol/L Anion Gap (12-20) BUN (9-16) mg/dL Creatinine (0.5-1.4) mg/dL Estim Creat Clear Calc Estimated GFR Random Glucose (60-115) mg/dL Calcium (8.4-10.2) mg/dL Magnesium (1.6-2.6) mg/dL Troponin I High Sens 12.6 D 12.6 (<3.5-35.0) ng/L B-Natriuretic Peptide 238 H (<100) pg/mL Discharge Plan Discharge Clinical Impression: Chest pain Patient Disposition: Home, Self-Care Instructions: Chest Pain (ED) Additional Instructions: Continue to take your medication and follow up with Cardiology for further manage Report to the ER if recurrence or worsening of chest pain Prescriptions: No Action tramadol 50 mg tablet 50 mg PO Q8H PRN (Reason: pain) Qty: 10 0RF baclofen 10 mg tablet 10 mg PO TID PRN (Reason: muscle spasm) Qty: 10 0RF amoxicillin 500 mg capsule 1,000 mg PO TID 5 Days Qty: 30 0RF doxycycline hyclate 100 mg tablet 100 mg PO BID 7 Days Qty: 14 0RF Interventions: ED Discharge Assessment Last Done: 10/23/22 21:01 Discharge Date/Time: 10/23/22 21:05
--- NOTE | 2022-10-23 16:59 | ECG_ITS ---
Test Reason : CP Blood Pressure : / mmHG Vent. Rate : 060 BPM Atrial Rate : 060 BPM P-R Int : 236 ms QRS Dur : 114 ms QT Int : 444 ms P-R-T Axes : 045 -33 068 degrees QTc Int : 444 ms Sinus rhythm with 1st degree A-V block Left axis deviation Minimal voltage criteria for LVH, may be normal variant ( [place] product ) Abnormal ECG When compared with ECG of 29-SEP-2022 06:09, Premature ventricular complexes are no longer Present Referred By: Jose Correa Electronically Signed By:BOB MONAHAN
[2022-10-23 17:00] VITALS: BP 176/74; PULSE 60; O2SAT 98
[2022-10-23 17:10] VITALS: BP 144/73; PULSE 61; RESP 17; TEMP 36.9; O2SAT 96; BMI 28.2
[2022-10-23 17:26] LABS: MANUAL DIFF FLAG NO
[2022-10-23 17:42] LABS: Basophils Percent Auto 0.6 % (0-2); Eosinophils Absolute Auto 0.1 X10*3/uL (0.0-0.4); Eosinophils Percent Auto 1.6 % (0-4); Hematocrit 45.9 % (42.0-52.0); Hemoglobin 15.4 g/dl (14.0-18.0); Imm Gran Abs Auto 0.01 X10*3/uL (0.00-0.03); Imm Gran Pct Auto 0.1 % (0.0-0.4); Lymphocytes Absolute Auto 2.1 X10*3/uL (1.2-4.9); Lymphocytes Percent Auto 31.3 % (20-40); Mean Corpuscular HGB Conc 33.6 g/dl (31.0-36.0); Mean Corpuscular Volume 92.5 fL (80.0-98.0); Mean Platelet Volume 9.5 fL (9.4-12.4); Monocytes Absolute Auto 0.6 X10*3/uL (0.1-1.2); Monocytes Percent Auto 8.8 % (2-11); Neutrophils Absolute Auto 3.8 x10*3/uL (2.0-8.3); Neutrophils Percent Auto 57.6 % (45-73); Platelet Count 160 X10*3/uL (160-400); Red Blood Count 4.96 X10*6/uL (4.60-5.80); Red Cell Distribution Width 13.5 % (11.0-16.0); White Blood Count 6.7 X10*3/uL (4.8-10.8)
[2022-10-23 17:44] LABS: Anion Gap 12 (12-20); Blood Urea Nitrogen 9 mg/dL (9-16); Calcium 9.3 mg/dL (8.4-10.2); Carbon Dioxide 25 mmol/L (22-29); Chloride 109 mmol/L (96-108); Creatinine Clr Calc Pharmacy 50.9; Estimated Glomerular Filt Rate 52; Glucose Random 91 mg/dL (60-115); Potassium 3.5 mmol/L (3.3-5.1); Sodium 142 mmol/L (135-145)
[2022-10-23 17:46] LABS: INTERNATIONAL NORM RATIO 1.1 (0.9-1.1); Prothrombin Time 13.2 SEC (10.0-13.1)
[2022-10-23 17:50] LABS: B Type Natriuretic Peptide 238 pg/mL (<100)
[2022-10-23 17:51] LABS: Troponin-I High Sensitivity 12.6 ng/L (<3.5-35.0)
[2022-10-23 18:03] VITALS: BP 160/77; PULSE 60; RESP 13; O2SAT 97
--- NOTE | 2022-10-23 19:10 | PC.NURSE ---
patient alert, oriented x4. denies chest pain or pressure at this time. able to make needs known. call [facility] placed within reach
[2022-10-23 20:11] LABS: Troponin-I High Sensitivity 12.6 ng/L (<3.5-35.0)
[2022-10-23 20:51] VITALS: BP 137/75; PULSE 65; RESP 13; TEMP 36.9; O2SAT 97
== END 2022-10-23 21:05 | disposition home or self-care (01) ==
PROVIDERS: Emergency Provider Internal Medicine; PCP Nurse Practitioner Primary Care
DX: R07.9 Chest pain, unspecified (principal); I11.0 Hypertensive heart disease with heart failure; I50.9 Heart failure, unspecified; Z95.0 Presence of cardiac pacemaker; Z79.899 Other long term (current) drug therapy
CPT/HCPCS: 36415; 71045; 80048; 83735; 83880; 84484; 85025; 85610; 93005; 99284

== ENCOUNTER 2022-11-19 21:03 | Inpatient (IN) | payer MEDICARE, OTHER, SELFPAY ==
--- NOTE | ~2022-11-19 | XR_ITS ---
EXAMINATION: XR CHEST CLINICAL INFORMATION: Chest pain. COMPARISON: Chest radiograph 10/23/2022. TECHNIQUE: Frontal view of the chest was obtained. FINDINGS: Left-sided pacer/AICD with single lead projecting over the right ventricle. Stable prominence of the cardiomediastinal silhouette. No focal airspace opacity, pleural effusion or pneumothorax. No acute osseous findings. XR/XR chest 1V IMPRESSION: 1. No acute cardiopulmonary findings. 2. Stable prominence of the cardiomediastinal silhouette.
[2022-11-19 21:05] VITALS: BP 139/78; PULSE 87; RESP 16; TEMP 36.7; O2SAT 97; BMI 29.0
--- NOTE | 2022-11-19 21:14 | ECG_ITS ---
Test Reason : CP Blood Pressure : / mmHG Vent. Rate : 085 BPM Atrial Rate : 085 BPM P-R Int : 232 ms QRS Dur : 108 ms QT Int : 386 ms P-R-T Axes : 061 -32 070 degrees QTc Int : 459 ms Sinus rhythm with 1st degree A-V block with occasional Premature ventricular complexes Possible Left atrial enlargement Left axis deviation Minimal voltage criteria for LVH, may be normal variant ( [place] product ) Septal infarct , age undetermined Abnormal ECG When compared with ECG of 23-OCT-2022 17:09, No significant changes seen Referred By: Generic ED Physician Electronically Signed By:BOB MONAHAN
[2022-11-19 21:27] VITALS: BP 139/69; PULSE 78; PULSE 80; RESP 22; TEMP 37.3; O2SAT 98
[2022-11-19 21:28] LABS: MANUAL DIFF FLAG NO
[2022-11-19 21:36] VITALS: BP 184/101; PULSE 89; RESP 14
[2022-11-19 21:41] LABS: Basophils Percent Auto 0.3 % (0-2); Eosinophils Absolute Auto 0.1 X10*3/uL (0.0-0.4); Eosinophils Percent Auto 0.9 % (0-4); Hemoglobin 15.5 g/dl (14.0-18.0); Imm Gran Abs Auto 0.02 X10*3/uL (0.00-0.03); Imm Gran Pct Auto 0.2 % (0.0-0.4); Lymphocytes Absolute Auto 2.2 X10*3/uL (1.2-4.9); Lymphocytes Percent Auto 25.1 % (20-40); Mean Corpuscular HGB Conc 33.7 g/dl (31.0-36.0); Mean Corpuscular Hemoglobin 31.3 pg (27.0-33.0); Mean Corpuscular Volume 92.9 fL (80.0-98.0); Mean Platelet Volume 9.9 fL (9.4-12.4); Monocytes Absolute Auto 0.8 X10*3/uL (0.1-1.2); Monocytes Percent Auto 8.8 % (2-11); Neutrophils Absolute Auto 5.8 x10*3/uL (2.0-8.3); Neutrophils Percent Auto 64.7 % (45-73); Platelet Count 178 X10*3/uL (160-400); Red Blood Count 4.95 X10*6/uL (4.60-5.80); Red Cell Distribution Width 13.8 % (11.0-16.0); White Blood Count 8.9 X10*3/uL (4.8-10.8)
--- NOTE | 2022-11-19 21:41 | ED_ITS ---
HPI - Chest Pain General Chief Complaint: Chest Pain Stated Complaint: Chest pain/ has pace maker Time Seen by Provider: 11/19/22 21:30 Source: patient Mode of arrival: ambulatory Limitations: no limitations History of Present Illness HPI narrative: 72-year-old male came in for evaluation of epigastric/chest pain started about 4-5 hours ago pain started as severe 7 on a 10 patient thought it could be an acid reflux pain has been constant since it started now it is 3/10, pain is worsening with taking a deep breath or pressing on the epigastric area, nothing relieved the pain. No other associated nausea or vomiting. No fever or chills. No shortness of breath. Never had similar pain in the past. Related Data Previous Rx's Medication Instructions Recorded amoxicillin 500 mg capsule 1,000 mg PO TID 5 days #30 caps 09/29/22 doxycycline hyclate 100 mg tablet 100 mg PO BID 7 days #14 tabs 09/29/22 baclofen 10 mg tablet 10 mg PO TID PRN muscle spasm #10 10/01/22 tabs tramadol 50 mg tablet 50 mg PO Q8H PRN pain #10 tabs 10/01/22 omeprazole 40 mg capsule,delayed 40 mg PO DAILY #20 caps 11/20/22 release Allergies Allergy/AdvReac Type Severity Reaction Status Date / Time No Known Allergies Allergy Verified 10/23/22 17:14 Review of Systems Review of Systems: All other systems are reviewed and are negative Constitutional: Reports as per HPI and Reports no additional constitutional complaints Eyes: Reports as per HPI and Reports no additional eye complaints Reports system reviewed and no additional complaints, except as documented Cardiovascular: Reports as per HPI and Reports no additional cardiovascular complaints Respiratory: Reports as per HPI and Reports no additional respiratory complaints Gastrointestinal: Reports as per HPI and Reports no additional gastrointestinal complaints Genitourinary: Reports no additional female genitourinary complaints Musculoskeletal: Reports no additional musculoskeletal complaints Skin/Breast: Reports system reviewed and no additional complaints, except as docu Psychiatric: Reports no additional psychiatric complaints Endocrine: Reports no additional endocrine complaints Hematologic/Lymphatic: Reports no additional hematologic/lymphatic complaints Allergic/Immunologic: Reports no additional allergic/immunologic complaints Reports system reviewed and no additional complaints, except as documented and Reports Abnormal speech present PMFSH Past Medical History Medical History Afib CAD (coronary artery disease) CHF (congestive heart failure) COPD (chronic obstructive pulmonary disease) Hypertension BJ (obstructive sleep apnea) Social History Social History Alcohol intake: former Smoked in Last 30 Days: No Advance Directives: No Advance Directives Information Provided: No Physical Exam Vital Signs: Vital Signs: Last Vital Signs Temp 98.8 F 11/20/22 01:33 Pulse 76 11/20/22 01:33 Resp 16 11/20/22 01:33 BP 124/70 11/20/22 01:33 Pulse Ox 97 11/20/22 01:33 O2 Del Method Room Air 11/20/22 01:33 O2 Flow Rate 1 11/20/22 00:00 BMI result Body Mass Index 29.0 Vital signs have been reviewed as appeared to be correct. Blood pressure normal. Heart rate normal. Respiration rate normal. Temperature normal. Oxygen saturation normal. Appearance: Alert. Oriented X3. No acute distress. Head: Normal external exam. Normocephalic. Atraumatic. No Pride signs noted. No raccoon eyes noted Eyes: PERRLA. EOMI. Conjunctiva and sclera normal. Eyelids normal. ENT: TM's Normal. Pharynx normal. Uvula midline. Moist mucous membranes. No trismus noted. No drooling noted. No muffled voice noted. Neck: Normal inspection. Neck supple. FROM. No adenopathy. Thyroid Normal. No meningeal signs. No neck mass noted. CVS: Normal heart rate and rhythm. Heart sound normal. No murmurs noted. Pulses normal throughout. Respiratory: No respiratory distress. Painless inspiration. Breath sounds normal. No wheezes/rales/rhonchi noted. Chest nontender. No accessory muscle usage noted or decreased air movement noted. Abdomen: Soft and nontender. Bowel sounds normal in all 4 quadrants. No distention noted. No organomegaly noted. No visible injury noted. Back: No CVA tenderness. Full range of motion noted. Skin: Skin warm and dry. Normal skin color. Normal skin turgor. No rashes/lesions/lacerations noted. Extremities: No lower extremity edema. Extremities exhibit normal range of motion. Extremities nontender. Neuro: Oriented X 3. Cranial nerve exam: II-XII are grossly intact No motor deficit. No sensory deficit. Reflexes normal. Course Course Course Narrative: 72-year-old male came in for evaluation of chest pain, patient was history of ACS with elevated troponin case discussed with Dr. Ortega who recommended to admit the patient to the hospitalist. Medications Administered Discontinued Medications Generic Name Dose Route Start Last Admin Trade Name Freq PRN Reason Stop Dose Admin Aspirin 81 mg 11/20/22 01:16 11/20/22 01:25 Aspirin Enteric Coated 81 Mg Tablet.Dr BECKWITH 11/20/22 01:17 81 mg ONCE ONE Administration Medical Decision Making Differential Diagnosis Differential Diagnoses: The differential diagnosis associated with the presentation includes (ACS, pneumonia, pneumothorax, gastritis, acid reflux, electrolyte abnormalities, severe anemia.) Admission/Observation Consideration of admission/observation: Escalation of care including admission/observation considered Consult Healthcare Provider Management of the patient was discussed with: Hospitalist (Dr. fuentes) and [employer] Operations Staff Officer (Dr. Ortega) Lab Data MDM Lab Attestation statement: I reviewed the patient's lab results. 11/19/22 21:24 11/19/22 21:24 Labs: Lab Results 11/19/22 11/19/22 11/19/22 Range/Units 21:24 21:24 21:24 WBC 8.9 (4.8-10.8) X10*3/uL RBC 4.95 (4.60-5.80) X10*6/uL Hgb 15.5 (14.0-18.0) g/dl Hct 46.0 (42.0-52.0) % MCV 92.9 (80.0-98.0) fL MCH 31.3 (27.0-33.0) pg MCHC 33.7 (31.0-36.0) g/dl RDW 13.8 (11.0-16.0) % Plt Count 178 (160-400) X10*3/uL MPV 9.9 (9.4-12.4) fL Immature Gran % (Auto) 0.2 (0.0-0.4) % Neut % (Auto) 64.7 (45-73) % Lymph % (Auto) 25.1 (20-40) % [place] % (Auto) 8.8 (2-11) % Eos % (Auto) 0.9 (0-4) % Baso % (Auto) 0.3 (0-2) % Lymph # (Auto) 2.2 (1.2-4.9) X10*3/uL [place] # (Auto) 0.8 (0.1-1.2) X10*3/uL Eos # (Auto) 0.1 (0.0-0.4) X10*3/uL Baso # (Auto) 0.0 (0.0-0.2) X10*3/uL Abs Immat Gran (auto) 0.02 (0.00-0.03) X10*3/uL Absolute Neuts (auto) 5.8 (2.0-8.3) x10*3/uL Absolute Nucleated RBC 0.000 (0.0-0.012) X10*3/uL Nucleated RBC % (auto) 0.0 (0.0-0.2) /100WBC Sodium 142 (135-145) mmol/L Potassium 4.4 D (3.3-5.1) mmol/L Chloride 112 H (96-108) mmol/L Carbon Dioxide 22 (22-29) mmol/L Anion Gap 12 (12-20) BUN 16 (9-16) mg/dL Creatinine 1.46 H (0.5-1.4) mg/dL Estim Creat Clear Calc 47.3 Estimated GFR 47 Random Glucose 116 H (60-115) mg/dL Calcium 9.0 (8.4-10.2) mg/dL Troponin I High Sens 22.3 D (<3.5-35.0) ng/L 11/20/22 Range/Units 00:34 WBC (4.8-10.8) X10*3/uL RBC (4.60-5.80) X10*6/uL Hgb (14.0-18.0) g/dl Hct (42.0-52.0) % MCV (80.0-98.0) fL MCH (27.0-33.0) pg MCHC (31.0-36.0) g/dl RDW (11.0-16.0) % Plt Count (160-400) X10*3/uL MPV (9.4-12.4) fL Immature Gran % (Auto) (0.0-0.4) % Neut % (Auto) (45-73) % Lymph % (Auto) (20-40) % [place] % (Auto) (2-11) % Eos % (Auto) (0-4) % Baso % (Auto) (0-2) % Lymph # (Auto) (1.2-4.9) X10*3/uL [place] # (Auto) (0.1-1.2) X10*3/uL Eos # (Auto) (0.0-0.4) X10*3/uL Baso # (Auto) (0.0-0.2) X10*3/uL Abs Immat Gran (auto) (0.00-0.03) X10*3/uL Absolute Neuts (auto) (2.0-8.3) x10*3/uL Absolute Nucleated RBC (0.0-0.012) X10*3/uL Nucleated RBC % (auto) (0.0-0.2) /100WBC Sodium (135-145) mmol/L Potassium (3.3-5.1) mmol/L Chloride (96-108) mmol/L Carbon Dioxide (22-29) mmol/L Anion Gap (12-20) BUN (9-16) mg/dL Creatinine (0.5-1.4) mg/dL Estim Creat Clear Calc Estimated GFR Random Glucose (60-115) mg/dL Calcium (8.4-10.2) mg/dL Troponin I High Sens 59.8 H D (<3.5-35.0) ng/L Independent Interpretation I performed an independent interpretation of an: Plain X-Ray (Chest: No acute intrathoracic pathology.) Radiology Impression Discussion of test interpretation with radiology: I have reviewed the r adiologist's reading. Discharge Plan Discharge Clinical Impression: Atypical chest pain Patient Disposition: Admitted As Inpatient
[2022-11-19 22:00] LABS: Troponin-I High Sensitivity 22.3 ng/L (<3.5-35.0)
[2022-11-19 22:08] LABS: Anion Gap 12 (12-20); Blood Urea Nitrogen 16 mg/dL (9-16); Carbon Dioxide 22 mmol/L (22-29); Chloride 112 mmol/L (96-108); Creatinine Clr Calc Pharmacy 47.3; Estimated Glomerular Filt Rate 47; Glucose Random 116 mg/dL (60-115); Potassium 4.4 mmol/L (3.3-5.1); Sodium 142 mmol/L (135-145)
[2022-11-19 22:32] VITALS: BP 141/65; PULSE 79; RESP 14; O2SAT 99
[2022-11-20] VITALS (7 sets, daily range): BP systolic 124–173; BP diastolic 51–94; PULSE 70–97; RESP 15–17; TEMP 36.4–37.2; O2SAT 95–99; BMI 31.0
[2022-11-20 01:01] LABS: Troponin-I High Sensitivity 59.8 ng/L (<3.5-35.0)
--- NOTE | 2022-11-20 01:24 | PM.IMHP ---
History of Present Illness Date of Service: 11/20/22 Chief Complaint: Chest pain This is a 72-year-old male with pertinent history of CAD, congestive heart failure unspecified ejection fraction, COPD not on home oxygen, essential hypertension, BJ, AFib on anticoagulation who presents to the emergency department evaluation of chest discomfort. Patient states he had midsternal chest pain that started about 18:00. It radiated to his arm and was associated with sweating. No nausea. Patient states he often has gas pain but this time he felt that it was different. The pain lasted till he was brought to the ER. Patient denies fever, chills, cough, shortness of breath, palpitations, abdominal pain, changes in urinary or bowel habits. In the emergency department, troponin found to be elevated and Cardiology was consulted who requested admission. Review of Systems Cardiovascular: Cardiovascular: Reports chest pain Respiratory: Respiratory: Reports no additional respiratory complaints Gastrointestinal: Gastrointestinal: Reports no additional gastrointestinal complaints Genitourinary: Genitourinary: Reports no additional male genitourinary complaints [facility] Medical History Afib CAD (coronary artery disease) CHF (congestive heart failure) COPD (chronic obstructive pulmonary disease) Hypertension BJ (obstructive sleep apnea) Pertinent family history: Not significant due to age Social History Alcohol intake: former Smoked in Last 30 Days: No Advance Directives: No Advance Directives Information Provided: No Meds Allergies Allergy/AdvReac Type Severity Reaction Status Date / Time No Known Allergies Allergy Verified 10/23/22 17:14 Active Medications: Current Medications Heparin Sodium (Porcine) (Heparin Sodium,Porcine 5,000 Unit/Ml Vial) 6,700 unit 80 unit/kg (6700 unit) IVPUSH ONCE ONE Stop: 11/20/22 01:19 Heparin Sodium (Porcine) (Heparin Sodium,Porcine 5,000 Unit/Ml Vial) 3,400 unit 40 unit/kg (3400 unit) IVPUSH PROTOCOL BOLUS PRN; Protocol PRN Reason: 40 unit/kg - Heparin Protocol Heparin Sodium (Porcine) (Heparin Sodium,Porcine 5,000 Unit/Ml Vial) 6,700 unit 80 unit/kg (6700 unit) IVPUSH PROTOCOL BOLUS PRN; Protocol PRN Reason: 80 unit/kg - Heparin Protocol Heparin Sodium/Sodium Chloride (Heparin Sodium,Porcine/1/2ns) 25,000 unit in 250 mls @ 0 mls/hr IVCONT .Q0M ASHLY; Protocol Physical Exam Vital Signs and Narrative: Vital Signs: Last Vital Signs Temp 99.0 F 11/20/22 00:00 Pulse 79 11/20/22 00:00 Resp 17 11/20/22 00:00 BP 125/51 L 11/20/22 00:00 Pulse Ox 97 11/20/22 00:00 O2 Del Method Nasal Cannula 11/20/22 00:00 O2 Flow Rate 1 11/20/22 00:00 BMI result Body Mass Index 29.0 Middle-aged male lying in bed in no distress Neck supple, no JVD Regular rate and rhythm, S1-S2 heard Regular breath sounds bilaterally, no wheezing or crackles appreciated Abdomen soft nontender, no guarding, no rigidity Patient is awake, alert and oriented to self, place, time and person ; no focal motor deficit Psych: Normal mood No pedal edema Results Labs 11/19/22 21:24 11/19/22 21:24 Labs: Laboratory Results - last 24 hr 11/19/22 11/19/22 11/19/22 21:24 21:24 21:24 MCV 92.9 MCH 31.3 MCHC 33.7 RDW 13.8 Plt Count 178 MPV 9.9 Immature Gran % (Auto) 0.2 Neut % (Auto) 64.7 Lymph % (Auto) 25.1 [place] % (Auto) 8.8 Eos % (Auto) 0.9 Baso % (Auto) 0.3 Lymph # (Auto) 2.2 [place] # (Auto) 0.8 Eos # (Auto) 0.1 Baso # (Auto) 0.0 Abs Immat Gran (auto) 0.02 Absolute Neuts (auto) 5.8 Absolute Nucleated RBC 0.000 Nucleated RBC % (auto) 0.0 Anion Gap 12 Estim Creat Clear Calc 47.3 Estimated GFR 47 Random Glucose 116 H Calcium 9.0 Troponin I High Sens 22.3 D 11/20/22 00:34 MCV MCH MCHC RDW Plt Count MPV Immature Gran % (Auto) Neut % (Auto) Lymph % (Auto) [place] % (Auto) Eos % (Auto) Baso % (Auto) Lymph # (Auto) [place] # (Auto) Eos # (Auto) Baso # (Auto) Abs Immat Gran (auto) Absolute Neuts (auto) Absolute Nucleated RBC Nucleated RBC % (auto) Anion Gap Estim Creat Clear Calc Estimated GFR Random Glucose Calcium Troponin I High Sens 59.8 H D Imaging Radiologist's Impressions: Impressions Chest X-Ray 11/19/22 23:00 IMPRESSION: 1. No acute cardiopulmonary findings. 2. Stable prominence of the cardiomediastinal silhouette. Assessment and Plan (1) NSTEMI (non-ST elevated myocardial infarction): Status: Acute Plan This is a 72-year-old male with pertinent history of CAD, congestive heart failure unspecified ejection fraction, COPD not on home oxygen, essential hypertension, BJ, AFib on anticoagulation who presents to the emergency department evaluation of chest discomfort. #. NSTEMI. Will admit patient with playground monitor. Initiating IV heparin. Patient received aspirin in the ER. Cardiology was consulted from the ER, appreciate assistance. Obtaining echo. Patient is on beta-vito #. Congestive heart failure, unspecified ejection fraction. Continue Lasix and carvedilol #. Paroxysmal atrial fibrillation. Hold Eliquis as patient is on IV heparin as above. Continue amiodarone and beta-vito #. BJ. CPAP at bedtime #. COPD. Continue home inhaler. Not in exacerbation during admission #. Chronic kidney disease. Creatinine at baseline. Avoid nephrotoxins Med rec pending DVT prophylaxis: IV heparin Full code Cardiac diet Admit as inpatient and will require two night minimum hospital stay for IV heparin. Specialist consult pending Time Spent With Patient Time: Total time managing care of this patient today ____ minutes. Quality Stroke Does the patient have a stroke diagnosis?: No VTE Prior VTE?: No VTE Risk Level:: Medical - moderate - high VTE Device Contraindication: Treatment Not Indicated VTE Drug Contraindication: N/A - Med Ordered
[2022-11-20] MEDS: Aspirin Enteric Coated 81 MG TABLET.DR PO (01:25)
[2022-11-20 01:37] LABS: Hematocrit 43.2 % (42.0-52.0); Hemoglobin 14.7 g/dl (14.0-18.0); Mean Corpuscular Hemoglobin 31.6 pg (27.0-33.0); Mean Corpuscular Volume 92.9 fL (80.0-98.0); Mean Platelet Volume 9.7 fL (9.4-12.4); Platelet Count 141 X10*3/uL (160-400); Red Blood Count 4.65 X10*6/uL (4.60-5.80); Red Cell Distribution Width 13.8 % (11.0-16.0); White Blood Count 8.4 X10*3/uL (4.8-10.8)
--- NOTE | 2022-11-20 01:40 | MHC.EDTECH ---
patient vitals sign taken ,belongings list done ,pt was weighted ,450 ml urine empty ,pt is fully admitted waiting for bed assignment .
[2022-11-20 01:43] LABS: Prothrombin Time 10.9 SEC (10.0-13.1)
[2022-11-20 01:45] LABS: PTT Heparin Drip 24.6 SEC (53-77.9)
[2022-11-20] MEDS: Heparin Sodium,Porcine 5,000 UNIT/ML VIAL 7100 UNIT IVPUSH (02:03)
[2022-11-20] MEDS: Heparin Sodium,Porcine/1/2NS 25,000 UNIT/250 ML IV.SOLN 12.56 UNIT IVCONT (02:05)
--- NOTE | 2022-11-20 02:42 | ECG_ITS ---
Test Reason : CHEST PAIN Blood Pressure : / mmHG Vent. Rate : 074 BPM Atrial Rate : 074 BPM P-R Int : 256 ms QRS Dur : 104 ms QT Int : 396 ms P-R-T Axes : 059 -32 044 degrees QTc Int : 439 ms Sinus rhythm with 1st degree A-V block Possible Left atrial enlargement Left axis deviation Minimal voltage criteria for LVH, may be normal variant ( [place] product ) Abnormal ECG When compared with ECG of 19-NOV-2022 21:15, No significant changes seen Referred By: Avery Fuentes Electronically Signed By:BOB MONAHAN
[2022-11-20] MEDS: Nitroglycerin 0.4 MG TAB.SUBL SUBLINGUAL ×2 (02:59→12:27)
[2022-11-20 05:46] LABS: MANUAL DIFF FLAG NO
[2022-11-20 05:52] LABS: Basophils Percent Auto 0.4 % (0-2); Eosinophils Absolute Auto 0.1 X10*3/uL (0.0-0.4); Eosinophils Percent Auto 1.5 % (0-4); Hematocrit 41.8 % (42.0-52.0); Hemoglobin 14.3 g/dl (14.0-18.0); Imm Gran Abs Auto 0.03 X10*3/uL (0.00-0.03); Imm Gran Pct Auto 0.3 % (0.0-0.4); Lymphocytes Absolute Auto 3.2 X10*3/uL (1.2-4.9); Lymphocytes Percent Auto 35.4 % (20-40); Mean Corpuscular HGB Conc 34.2 g/dl (31.0-36.0); Mean Corpuscular Hemoglobin 31.5 pg (27.0-33.0); Mean Corpuscular Volume 92.1 fL (80.0-98.0); Mean Platelet Volume 10.1 fL (9.4-12.4); Monocytes Absolute Auto 0.8 X10*3/uL (0.1-1.2); Monocytes Percent Auto 8.4 % (2-11); Neutrophils Absolute Auto 4.8 x10*3/uL (2.0-8.3); Platelet Count 137 X10*3/uL (160-400); Red Blood Count 4.54 X10*6/uL (4.60-5.80); Red Cell Distribution Width 13.9 % (11.0-16.0); White Blood Count 8.9 X10*3/uL (4.8-10.8)
[2022-11-20 06:17] LABS: Anion Gap 10 (12-20); Blood Urea Nitrogen 13 mg/dL (9-16); Calcium 9.1 mg/dL (8.4-10.2); Carbon Dioxide 23 mmol/L (22-29); Chloride 109 mmol/L (96-108); Creatinine Clr Calc Pharmacy 58.4; Estimated Glomerular Filt Rate 58; Glucose Random 99 mg/dL (60-115); Potassium 3.4 mmol/L (3.3-5.1); Sodium 139 mmol/L (135-145)
[2022-11-20 06:46] LABS: PTT Heparin Drip > 200.0 SEC (53-77.9)
--- NOTE | 2022-11-20 07:00 | CA_ITS ---
Transthoracic Echocardiogram Patient (Last, First, Middle): Victoriano Patricia, Gender: Male Date of : 1950 Age: 72 Procedure Date: 11/20/2022 Procedure Type: Transthoracic Echocardiogram Location: ER Height: 170.18 cm Weight: 89.36 kg BSA: 2.01 m2 Heart Rate: 82 bpm BP: 134 / 63 mmHg Genetic Counselor: Referring MD: Yosef Fuentes MD Symptoms: NSTEMI Study Quality: Fair/Contrast ECG Rhythm: Undetermined Conclusions: - The left ventricular systolic function is severely decreased. The visually estimated ejection fraction is between 15-20%. - There is evidence of regional wall motion abnormalities, as described in body of report. - No obvious valvular pathology seen on this study. Findings Procedure Information Contrast agent, definity, is being given per protocol without apparent complications. Left Ventricle Mildly increased left ventricular cavity size. There is moderately increased left ventricular wall thickness. The left ventricular systolic function is severely decreased. The visually estimated ejection fraction is between 15 20%. There is evidence of regional wall motion abnormalities. (apex severely hypokinetic vs akinetic). Wall Motion Rest Echo Findings The apex, basal inferior, and basal inferoseptal segments are hypokinetic. The anteroseptal wall, the mid inferior, and mid inferoseptal segments are akinetic. Right Ventricle Normal right ventricular cavity size and systolic function. Atria The left atrium is mildly dilated. The right atrium is normal in size. Aortic Valve The aortic valve was not well visualized. There is no aortic valve stenosis. There is trace (trivial) aortic valve regurgitation. Mitral Valve The mitral valve appears normal. There is mild mitral valve regurgitation. There is no mitral valve stenosis. Pulmonic Valve The pulmonic valve is likely normal. Tricuspid Valve There is trace tricuspid valve regurgitation. Tricuspid regurgitation envelope is inadequate for calculation of right ventricular systolic pressure. Great Vessels The aorta was not well visualized. Venous The inferior vena cava is normal in size and collapses greater than 50% with inspiration. Pericardium/Pleural There is no evidence of pericardial effusion. Prior Study Comparison No significant change compared to prior study dated: 04/01/2022. Recommendations, Care & Conclusions No obvious valvular pathology seen on this study. Measurements 2D Linear Measurements IVSd: 1.37 0.6-0.9/0.6-1.0 cm LVIDd: 5.80 3.9-5.3/4.2-5.9 cm LVIDd Index: 2.89 2.4-3.2/2.2-3.1 cm/m2 LVIDs: 4.90 2.0-3.6 cm LVPWd: 1.46 0.7-1.1 cm LA Diam: 4.90 2.7-3.8/3.0-4.0 cm LAIDs Index: 2.44 1.5-2.3 cm/m2 LV Mass: 465.53 67-162/88-224 g LV Mass Index: 231.61 43-95/49-115 g/m2 LVOT Diam: 2.00 3.0+(-)1.3 cm 2D Systolic Function EF 4C: 13.20 >55% EF 2C: 14.60 >55% EF BiP: 13.20 >55% Mitral Valve MV Pk E: 0.98 MV Decel Time: 108.00 E'Lateral: 5.66 E'Medial: 5.44 E/E' Med: 18.00 E/E' Lat: 17.30 PHT: 32.00 MVA PHT: 6.88 Decel Brooks: 9.10 Aortic Valve AoV Pk Edilson: 1.46 AoV Mn Edilson: 1.02 AoV VTI: 0.34 AoV Pk Grad: 9.00 Aov Mn Grad: 5.00 NANCY Cont.VTI: 2.28 LVOT LVOT Pk Edilson: 0.91 LVOT Mn Edilson: 0.57 LVOT VTI: 0.18 LVOT Pk Grad: 3.00 LVOT Mn Grad: 2.00 LVOT Diam: 2.00 LVOT Area: 3.14 Diastolic Function MV Pk E: 0.98 E'Medial: 5.44 E/E' Med: 18.00 E' Laterial: 5.66 E/E' Lat: 17.30 Right Ventricle TAPSE (mm): 27.50 TVS' Edilson: 10.40 Tricuspid Valve TR Pk Edilson: 1.76 TR Pk Grad: 12.00 Great Vessels Aorta Sinus of Valsalva: 3.20 2.0-3.5 cm Pulmonary Valve PV Pk Edilson: 1.05 Peak PV Grad: 4.00 Updated in Other Vendor System with Status of Final Volodymyr Ortega MD electronically signed on 11/20/2022 2:59:01 PM with status of Final
[2022-11-20 08:13] LABS: PTT Heparin Drip 177.9 SEC (53-77.9)
--- NOTE | 2022-11-20 08:42 | PHA.MEDREC ---
Pharmacy Consult ? Medication Reconciliation Pharmacy has reviewed the medication reconciliation completed by Karla. Leslee was missed from home list. On the list by RN, Amiodarone 200 mg daily was last filled 05/15/2022) and Vascepa 2 g BID was last filled 06/11/22 both for 30 days supplies. Patient reports he is suppose to be on Amiodarone 200 mg BID and Vascepa 2g BID has not taken them in a while because he needs refills. Discuss with Dr. Min. Medication were removed from home list and will be restart if/when necessary. Dottie Calderon, PharmD
[2022-11-20] MEDS: 0.9 % Sodium Chloride Flush 3 ML SYRINGE IVFLUSH (09:17)
--- NOTE | 2022-11-20 09:17 | PC.NURSE ---
assumed care of pt. pt aox4, reporting slight intermittent chest pressure but no other discomfort. heparin drip paused at the moment, phlebotomy just left bedside after drawing repeat PTT HD, awaiting results before titrating heparin drip. [place] [facility] [place]. awaiting orders. will ctm
[2022-11-20 09:29] LABS: PTT Heparin Drip 79.4 SEC (53-77.9)
--- NOTE | 2022-11-20 09:49 | PC.RT ---
pt refused to wear cpap last night. He does not wear cpap at home either. Does have a hx of BJ.
--- NOTE | 2022-11-20 10:16 | PC.NURSE ---
heparin drip resumed at 10 U/kg/hr according to protocol after PTT HD result. no bleeding/bruising noted, pt in no apparent distress, will ctm
--- NOTE | 2022-11-20 10:37 | MHC.CM.ED ---
Met with patient in regards to discharge planning. Patient lives with his sisters, ambulates independently, and had no services prior to coming to hospital. PCP verified. Patient denies having a HCP. Information provided. Patient not interested in completing one at this time because he doesn't know which family member would make the decisions he would want. PCP verified. Patient vaxxed and boosted x2. No services anticipated to be needed at discharge. Patient will need a bus pass to transport home when medically stable. Continue to monitor for d/c needs.
--- NOTE | 2022-11-20 10:42 | PM.CNCAR ---
History of Present Illness History of Present Illness Date of Service: 11/20/22 Chief complaint: Chest pain Narrative: This is a cardiology consultation regarding chest pain. We do not have much of cardiac history. He states that he has had multiple cardiac catheterization/possibly PCI in [facility] many years ago. Then apparently moved to [facility] where he lived and had cardiology outpatient consult. Then he moved to this area and it appears that he saw Dr. Shannon in [facility] for outpatient consultation. However we do not really have any details of coronary anatomy. Current admissions because of chest pain. He states that he is generally chest pain-free and does not get any frequent symptoms. Yesterday he developed a discomfort in the lower part of the midsternal area and that felt like a pressure/discomfort and last for many hours. Then he came to the ER. There was a troponin bump but not too high. Any case, his admitted for further care. There is also mention in the history regarding atrial fibrillation and he is on Eliquis. Last dose was morning. Currently, patient is on heparin drip. He is pain-free. Seems comfortable and lying in the ER bed. Also has ICD in place. Review of Systems Review of Systems: Yes all other systems are reviewed and are negative Constitutional: Constitutional: Reports as per HPI and Reports no additional constitutional complaints Eyes: Eyes: Reports as per HPI and Denies no additional eye complaints ENT: Denies system reviewed and no additional complaints, except as documented and Reports as per HPI Cardiovascular: Cardiovascular: Reports as per HPI, Reports no additional cardiovascular complaints, Denies acrocyanosis, Denies cool extremities, Reports chest pain, Denies leg edema, Denies lightheadedness, Denies palpitations and Denies dyspnea Respiratory: Respiratory: Reports as per HPI, Denies no additional respiratory complaints and Denies dyspnea Gastrointestinal: Gastrointestinal: Reports as per HPI and Denies no additional gastrointestinal complaints Genitourinary: Genitourinary: Reports no additional male genitourinary complaints and Reports as per HPI Musculoskeletal: Musculoskeletal: Reports no additional musculoskeletal complaints and Reports as per HPI Integumentary/Breasts: Skin/Breast: Reports system reviewed and no additional complaints, except as docu Neurologic: Reports system reviewed and no additional complaints, except as documented and Reports as per HPI Psychiatric: Psychiatric: Reports no additional psychiatric complaints and Reports as per HPI Endocrine: Endocrine: Reports no additional endocrine complaints, Reports as per HPI and Denies palpitations Hematologic/Lymphatic: Hematologic/Lymphatic: Reports no additional hematologic/lymphatic complaints and Reports as per HPI Allergic/Immunologic: Allergic/Immunologic: Reports no additional allergic/immunologic complaints and Reports as per HPI [facility] Past Medical History Medical History Afib CAD (coronary artery disease) CHF (congestive heart failure) COPD (chronic obstructive pulmonary disease) Hypertension BJ (obstructive sleep apnea) Family History Pertinent family history: No significant family history pertinent to this admission. Social History Social History Alcohol intake: former Patient Tobacco Use Status: Former Tobacco user Smoked in Last 30 Days: No Advance Directives: No Advance Directives Information Provided: No Nutrition Risks: No Nutritional Risk service: No Meds Allergies Allergy/AdvReac Type Severity Reaction Status Date / Time No Known Allergies Allergy Verified 10/23/22 17:14 Active Medications: Current Medications Acetaminophen (Acetaminophen 325 Mg Tablet) 650 mg PO Q6H PRN PRN Reason: Pain, Mild (Pain Scale 1-3) Heparin Sodium (Porcine) (Heparin Sodium,Porcine 5,000 Unit/Ml Vial) 3,600 unit 40 unit/kg (3600 unit) IVPUSH PROTOCOL BOLUS PRN; Protocol PRN Reason: 40 unit/kg - Heparin Protocol Heparin Sodium (Porcine) (Heparin Sodium,Porcine 5,000 Unit/Ml Vial) 7,200 unit 80 unit/kg (7200 unit) IVPUSH PROTOCOL BOLUS PRN; Protocol PRN Reason: 80 unit/kg - Heparin Protocol Heparin Sodium/Sodium Chloride (Heparin Sodium,Porcine/1/2ns) 25,000 unit in 250 mls @ 0 mls/hr IVCONT .Q0M ASHLY; Protocol Last Titration: 11/20/22 10:13 Dose: 10 units/kg/hr, 8.97 mls/hr Melatonin (Melatonin 3 Mg Tablet) 6 mg PO BEDTIME PRN PRN Reason: Insomnia Nitroglycerin (Nitroglycerin 0.4 Mg Tab.Subl) 0.4 mg SUBLINGUAL Q5MX3 PRN PRN Reason: Chest Pain Last Admin: 11/20/22 02:59 Dose: 0.4 mg Ondansetron HCl (Ondansetron Hcl 4 Mg/2 Ml Vial) 4 mg IVPUSH Q8H PRN PRN Reason: Nausea and Vomiting Pharmacy Consult (Consult Rx Perform Med Rec) 1 each MISCELLANE ONCE PRN PRN Reason: Consult order Sodium Chloride (0.9 % Sodium Chloride Flush 3 Ml Syringe) [facility] Last Admin: 11/20/22 09:17 Dose: 3 ml Home Medications Medication Instructions Recorded Confirmed Last Taken Type apixaban 5 mg tablet (Eliquis) 5 mg PO BID 11/20/22 11/20/22 11/19/22 History carvedilol 12.5 mg tablet 12.5 mg PO BID 11/20/22 11/20/22 11/19/22 09:00 History 12.5 cholecalciferol (vitamin D3) 25 25 mcg PO DAILY 11/20/22 11/20/22 11/19/22 History mcg (1,000 unit) tablet cyanocobalamin (vitamin B-12) 1,000 mcg PO DAILY 11/20/22 11/20/22 11/19/22 History 1,000 mcg tablet ezetimibe 10 mg tablet 10 mg PO DAILY 11/20/22 11/20/22 11/19/22 09:00 History ferrous sulfate 324 mg (65 mg 324 mg PO DAILY 11/20/22 11/20/22 11/19/22 History iron) tablet,delayed release fluticasone furoate 200 1 ea inhalation DAILY 11/20/22 11/20/22 11/19/22 09:00 History mcg-vilanterol 25 mcg/dose inhalation powder (Breo Ellipta) furosemide 40 mg tablet 40 mg PO BID PRN Edema 11/20/22 11/20/22 11/19/22 09:00 History ipratropium 20 mcg-albuterol 100 1 puff inhalation Q6H PRN 11/20/22 11/20/22 Unknown History mcg/actuation mist for inhalation Shortness Of Breath (Combivent Respimat) lisinopril 2.5 mg tablet 2.5 mg PO BID 11/20/22 11/20/22 Unknown History rosuvastatin 20 mg tablet 20 mg PO BEDTIME 11/20/22 11/20/22 11/18/22 21:00 History Physical Exam Vital Signs: Vital Signs: Last Vital Signs Temp 98.6 F 11/20/22 07:27 Pulse 73 11/20/22 07:27 Resp 17 11/20/22 07:27 BP 137/73 11/20/22 07:27 Pulse Ox 96 11/20/22 07:27 O2 Del Method Room Air 11/20/22 07:27 O2 Flow Rate 1 11/20/22 00:00 BMI result Body Mass Index 31.0 Const: General: comfortable and no acute distress Orientation/consciousness: patient oriented x3 HEENT: Other: Unremarkable Head: Yes normal to inspection Neck: Neck: Yes normal visual inspection Chest: Chest palpation & inspection: normal inspection of the chest Resp: Auscultation: clear to auscultation bilaterally Cardio: Palpation: normal PMI Heart sounds: S1 normal heart sound present, S2 normal heart sound present, no gallops, no murmurs and no rubs GI: Palpation (GI): Soft to palpation Back/Spine/Pelvis: Other: unremarkable Skin: General skin exam: no rashes or lesions noted Neuro: General: patient oriented x3 Extrem: General: Yes normal to inspection Psych: Mental Status: mental status grossly normal Objective Labs and Meds 11/20/22 05:35 11/20/22 05:35 Lab results: Laboratory Results - last 24 hr 11/19/22 11/19/22 11/19/22 21:24 21:24 21:24 WBC 8.9 RBC 4.95 Hgb 15.5 Hct 46.0 MCV 92.9 MCH 31.3 MCHC 33.7 RDW 13.8 Plt Count 178 MPV 9.9 Immature Gran % (Auto) 0.2 Neut % (Auto) 64.7 Lymph % (Auto) 25.1 [place] % (Auto) 8.8 Eos % (Auto) 0.9 Baso % (Auto) 0.3 Lymph # (Auto) 2.2 [place] # (Auto) 0.8 Eos # (Auto) 0.1 Baso # (Auto) 0.0 Abs Immat Gran (auto) 0.02 Absolute Neuts (auto) 5.8 Absolute Nucleated RBC 0.000 Nucleated RBC % (auto) 0.0 PT INR aPTT Heparin Protocol Sodium 142 Potassium 4.4 D Chloride 112 H Carbon Dioxide 22 Anion Gap 12 BUN 16 Creatinine 1.46 H Estim Creat Clear Calc 47.3 Estimated GFR 47 Random Glucose 116 H Calcium 9.0 Troponin I High Sens 22.3 D 11/20/22 11/20/22 11/20/22 00:34 01:32 01:32 WBC 8.4 RBC 4.65 Hgb 14.7 Hct 43.2 MCV 92.9 MCH 31.6 MCHC 34.0 RDW 13.8 Plt Count 141 L MPV 9.7 Immature Gran % (Auto) Neut % (Auto) Lymph % (Auto) [place] % (Auto) Eos % (Auto) Baso % (Auto) Lymph # (Auto) [place] # (Auto) Eos # (Auto) Baso # (Auto) Abs Immat Gran (auto) Absolute Neuts (auto) Absolute Nucleated RBC 0.000 Nucleated RBC % (auto) 0.0 PT 10.9 INR 1.0 aPTT Heparin Protocol 24.6 L Sodium Potassium Chloride Carbon Dioxide Anion Gap BUN Creatinine Estim Creat Clear Calc Estimated GFR Random Glucose Calcium Troponin I High Sens 59.8 H D 11/20/22 11/20/22 11/20/22 05:35 05:35 05:35 WBC 8.9 RBC 4.54 L Hgb 14.3 Hct 41.8 L MCV 92.1 MCH 31.5 MCHC 34.2 RDW 13.9 Plt Count 137 L MPV 10.1 Immature Gran % (Auto) 0.3 Neut % (Auto) 54.0 Lymph % (Auto) 35.4 [place] % (Auto) 8.4 Eos % (Auto) 1.5 Baso % (Auto) 0.4 Lymph # (Auto) 3.2 [place] # (Auto) 0.8 Eos # (Auto) 0.1 Baso # (Auto) 0.0 Abs Immat Gran (auto) 0.03 Absolute Neuts (auto) 4.8 Absolute Nucleated RBC 0.000 Nucleated RBC % (auto) 0.0 PT INR aPTT Heparin Protocol > 200.0 H* D Sodium 139 Potassium 3.4 D Chloride 109 H Carbon Dioxide 23 Anion Gap 10 L BUN 13 Creatinine 1.22 Estim Creat Clear Calc 58.4 Estimated GFR 58 Random Glucose 99 Calcium 9.1 Troponin I High Sens 11/20/22 11/20/22 07:42 09:15 WBC RBC Hgb Hct MCV MCH MCHC RDW Plt Count MPV Immature Gran % (Auto) Neut % (Auto) Lymph % (Auto) [place] % (Auto) Eos % (Auto) Baso % (Auto) Lymph # (Auto) [place] # (Auto) Eos # (Auto) Baso # (Auto) Abs Immat Gran (auto) Absolute Neuts (auto) Absolute Nucleated RBC Nucleated RBC % (auto) PT INR aPTT Heparin Protocol 177.9 H* 79.4 H D Sodium Potassium Chloride Carbon Dioxide Anion Gap BUN Creatinine Estim Creat Clear Calc Estimated GFR Random Glucose Calcium Troponin I High Sens ECG Interpretation: EKG with sinus rhythm at 74/Min; AL prolongation to 256 millisecond; leftward axis; minimal voltage criteria for LVH. Imaging Radiologist's impression: Impressions Chest X-Ray 11/19/22 23:00 IMPRESSION: 1. No acute cardiopulmonary findings. 2. Stable prominence of the cardiomediastinal silhouette. Assessment and Plan (1) NSTEMI (non-ST elevated myocardial infarction): Status: Acute (2) Ischemic cardiomyopathy: Status: Acute Plan Echocardiogram last year with LVEF of 50 20%. Extensive wall motion abnormalities including apex, apical anterior and inferior, basal inferior, inferior septal/anterior septal, basal inferolateral akinesis.' Overall, history of coronary artery disease and multiple prior PCI but unknown anatomy due to being in different states the past. Current troponin started 22.3 and went up to 59.8. Hence there is certain jump but not too high. Creatinine is okay. Would recommend a diagnostic cardiac catheterization for further assessment. Discussed about this patient he is agreeable. Hence we will transfer to [facility]. Otherwise, continue IV heparin drip. Last dose of Eliquis was morning. Discussed with hospitalist. Time Spent With Patient Time: Total time managing care of this patient today ____ minutes. Procedures Date of Service Date of Service: 11/20/22
--- NOTE | 2022-11-20 12:09 | PM.EVENT ---
Event Note Date of Service: 11/20/22 Event Note: Chart reviewed patient examined. Agree with H&P as outlined. Appreciate cardiac input. When bed available transferred to [facility] for diagnostic cardiac catheterization Time Spent With Patient Time: Total time managing care of this patient today ____ minutes.
--- NOTE | 2022-11-20 13:26 | MHC.EDTECH ---
@[id number] received a call from [facility] transfer line. The individual on the phone was calling to give a room assignment for Victoriano. He was accepted to [place] [id number] room 20. The nurse to nurse number is .
--- NOTE | 2022-11-20 13:36 | PM.DS ---
DS: Providers Provider Date of Service: 11/20/22 Date of admission: 11/20/22 01: Date of discharge: 11/20/22 Primary care physician: Pam Torres NP Consults: 11/20/22 01:22 Consult to Cardiology Routine Consulting Provider: [facility] [place] Cardiovascular Services Reason for consultation: NSTEMI Has provider been notified: Yes DS: Diagnosis Discharge Diagnosis (1) NSTEMI (non-ST elevated myocardial infarction): Status: Acute (2) Ischemic cardiomyopathy: Status: Acute DS: Summary Hospital Course Hospital Course: 72-year-old male with pertinent history of CAD, congestive heart failure unspecified ejection fraction, COPD not on home oxygen, essential hypertension, BJ, AFib on anticoagulation who presents to the emergency department evaluation of chest discomfort.? Patient states he had midsternal chest pain that started about 18:00.? It radiated to his arm and was associated with sweating.? No nausea.? Patient states he often has gas pain but this time he felt that it was different.? The pain lasted till he was brought to the ER.? Patient denies fever, chills, cough, shortness of breath, palpitations, abdominal pain, changes in urinary or bowel habits. Hospital [facility] Patient admitted to telemetry on a heparin drip. Seen in consultation by Cardiology who recommends transfer to [facility] for diagnostic catheterization. He has had 1 episode of mild chest pain with that was relieved by nitroglycerin. Time Spent with Patient Time attestation: Total time managing care of this patient today ____ minutes. Discharge coordination time: Greater than 30 minutes Quality: Safe Use of Opioids Does Pt have an Active Cancer Diagnosis on the Problem List?: No Quality: Stroke Does the patient have a stroke diagnosis?: No Physical Exam Vital Signs: Vital Signs: Last Vital Signs Temp 98.6 F 11/20/22 07:27 Pulse 97 11/20/22 12:27 Resp 17 11/20/22 07:27 BP 165/89 H 11/20/22 12:27 Pulse Ox 99 11/20/22 11:28 O2 Del Method Room Air 11/20/22 07:27 O2 Flow Rate 1 11/20/22 00:00 BMI result Body Mass Index 31.0 Const: Other: Awake alert oriented x3 no acute distress Resp: Other: Clear to auscultation bilaterally no rales rhonchi or wheezes Cardio: Other: No S4; positive S1-S2; no S3 murmurs rubs or gallops GI: Other: S soft nontender nondistended normoactive bowel sounds Extrem: Other: No edema bilaterally DS: Data Data Completed and Pending Labs on day of discharge: Laboratory Results - last 24 hr 11/19/22 11/19/22 11/19/22 21:24 21:24 21:24 WBC 8.9 RBC 4.95 Hgb 15.5 Hct 46.0 MCV 92.9 MCH 31.3 MCHC 33.7 RDW 13.8 Plt Count 178 MPV 9.9 Immature Gran % (Auto) 0.2 Neut % (Auto) 64.7 Lymph % (Auto) 25.1 [place] % (Auto) 8.8 Eos % (Auto) 0.9 Baso % (Auto) 0.3 Lymph # (Auto) 2.2 [place] # (Auto) 0.8 Eos # (Auto) 0.1 Baso # (Auto) 0.0 Abs Immat Gran (auto) 0.02 Absolute Neuts (auto) 5.8 Absolute Nucleated RBC 0.000 Nucleated RBC % (auto) 0.0 PT INR aPTT Heparin Protocol Sodium 142 Potassium 4.4 D Chloride 112 H Carbon Dioxide 22 Anion Gap 12 BUN 16 Creatinine 1.46 H Estim Creat Clear Calc 47.3 Estimated GFR 47 Random Glucose 116 H Calcium 9.0 Troponin I High Sens 22.3 D 11/20/22 11/20/22 11/20/22 00:34 01:32 01:32 WBC 8.4 RBC 4.65 Hgb 14.7 Hct 43.2 MCV 92.9 MCH 31.6 MCHC 34.0 RDW 13.8 Plt Count 141 L MPV 9.7 Immature Gran % (Auto) Neut % (Auto) Lymph % (Auto) [place] % (Auto) Eos % (Auto) Baso % (Auto) Lymph # (Auto) [place] # (Auto) Eos # (Auto) Baso # (Auto) Abs Immat Gran (auto) Absolute Neuts (auto) Absolute Nucleated RBC 0.000 Nucleated RBC % (auto) 0.0 PT 10.9 INR 1.0 aPTT Heparin Protocol 24.6 L Sodium Potassium Chloride Carbon Dioxide Anion Gap BUN Creatinine Estim Creat Clear Calc Estimated GFR Random Glucose Calcium Troponin I High Sens 59.8 H D 11/20/22 11/20/22 11/20/22 05:35 05:35 05:35 WBC 8.9 RBC 4.54 L Hgb 14.3 Hct 41.8 L MCV 92.1 MCH 31.5 MCHC 34.2 RDW 13.9 Plt Count 137 L MPV 10.1 Immature Gran % (Auto) 0.3 Neut % (Auto) 54.0 Lymph % (Auto) 35.4 [place] % (Auto) 8.4 Eos % (Auto) 1.5 Baso % (Auto) 0.4 Lymph # (Auto) 3.2 [place] # (Auto) 0.8 Eos # (Auto) 0.1 Baso # (Auto) 0.0 Abs Immat Gran (auto) 0.03 Absolute Neuts (auto) 4.8 Absolute Nucleated RBC 0.000 Nucleated RBC % (auto) 0.0 PT INR aPTT Heparin Protocol > 200.0 H* D Sodium 139 Potassium 3.4 D Chloride 109 H Carbon Dioxide 23 Anion Gap 10 L BUN 13 Creatinine 1.22 Estim Creat Clear Calc 58.4 Estimated GFR 58 Random Glucose 99 Calcium 9.1 Troponin I High Sens 11/20/22 11/20/22 07:42 09:15 WBC RBC Hgb Hct MCV MCH MCHC RDW Plt Count MPV Immature Gran % (Auto) Neut % (Auto) Lymph % (Auto) [place] % (Auto) Eos % (Auto) Baso % (Auto) Lymph # (Auto) [place] # (Auto) Eos # (Auto) Baso # (Auto) Abs Immat Gran (auto) Absolute Neuts (auto) Absolute Nucleated RBC Nucleated RBC % (auto) PT INR aPTT Heparin Protocol 177.9 H* 79.4 H D Sodium Potassium Chloride Carbon Dioxide Anion Gap BUN Creatinine Estim Creat Clear Calc Estimated GFR Random Glucose Calcium Troponin I High Sens Discharge Plan Discharge Anticipated Discharge Date/Time: 11/20/22 14:26 Patient Disposition: Xfer Acute Care Hospital Discharge Diagnosis: NSTEMI Referrals: Pam Torres NP [Primary Care Provider] - Discharge Medications: New heparin (porcine) 5,000 unit/mL Solution 3,600 unit IVPUSH PROTOCOL BOLUS PRN (Reason: 40 Unit/Kg - Heparin Protocol) Qty: 10 0RF heparin (porcine) 5,000 unit/mL Solution 7,200 unit IVPUSH PROTOCOL BOLUS PRN (Reason: 80 Unit/Kg - Heparin Protocol) Qty: 10 0RF heparin(porcine) in 0.45% NaCl 25,000 unit/250 mL Parenteral Solution 25,000 unit continuous IV infusion .Q0M Qty: 10 0RF Continued carvedilol 12.5 mg tablet 12.5 mg PO BID lisinopril 2.5 mg tablet 2.5 mg PO BID ezetimibe 10 mg tablet 10 mg PO DAILY fluticasone furoate-vilanterol [Breo Ellipta] 200-25 mcg/dose blister with device 1 ea inhalation DAILY Combivent Respimat 20-100 mcg/actuation mist 1 puff INHALATION Q6H PRN (Reason: Shortness Of Breath) cyanocobalamin (vitamin B-12) 1,000 mcg Tablet 1,000 mcg PO DAILY cholecalciferol (vitamin D3) 25 mcg (1,000 unit) Tablet 25 mcg PO DAILY Discontinued furosemide 40 mg tablet 40 mg PO BID PRN (Reason: Edema) rosuvastatin 20 mg tablet 20 mg PO BEDTIME Eliquis 5 mg tablet 5 mg PO BID ferrous sulfate 324 mg (65 mg iron) Tablet,Delayed Release (Dr/Ec) 324 mg PO DAILY Discharge Orders: Discharge Order (Routine); Ordered 11/20/22 Ordered By: Rodney Min Diet: Advance to usual diet Activity on Discharge: As tolerated Stand Alone Forms: Patient Portal Discharge page Care Plan Goals: Transfer to [facility] for diagnostic cardiac catheterization Health Concerns: Continue medicines as per transfer Plan of Treatment: As per receiving facility Assessment: See discharge summary Patient Instructions: Noncardiac Chest Pain (ED)
--- NOTE | 2022-11-20 14:31 | PC.NURSE ---
Nurse to nurse given to [facility]
[2022-11-20] MEDS: Atorvastatin Calcium 80 MG TABLET PO (14:53)
[2022-11-20] MEDS: carvediloL 12.5 MG TABLET PO (14:53)
--- NOTE | 2022-11-20 15:22 | MHC.CM.PN ---
Patient transferred to [facility] via BLS.
== END 2022-11-20 15:00 | disposition short-term general hospital (02) | DRG 281 ==
LOC: HO.ED 11-20 01:15 → HO.EDOVER 11-20 01:27
PROVIDERS: Admitting Provider Student in an Organized Health Care Education/Training Program; Emergency Provider Emergency Medicine; PCP Nurse Practitioner Primary Care; Visit Provider Hospitalist
DX: I21.4 Non-ST elevation (NSTEMI) myocardial infarction (principal); I13.0 Hypertensive heart and chronic kidney disease with heart failure and stage 1 through stage 4 chronic kidney disease, or unspecified chronic kidney disease; I48.0 Paroxysmal atrial fibrillation; J44.9 Chronic obstructive pulmonary disease, unspecified; I25.5 Ischemic cardiomyopathy; Z95.0 Presence of cardiac pacemaker; N18.9 Chronic kidney disease, unspecified; G47.33 Obstructive sleep apnea (adult) (pediatric); I25.10 Atherosclerotic heart disease of native coronary artery without angina pectoris; Z79.51 Long term (current) use of inhaled steroids; Z79.899 Other long term (current) drug therapy
CPT/HCPCS: 36415; 71045; 80048; 84484; 85025; 85027; 85610; 85730; 93005; 93306; 99285; J1643; Q9957

== ENCOUNTER 2023-02-19 14:14 | Outpatient (AMB) | payer MEDICARE, MEDICAID, SELFPAY ==
--- NOTE | 2023-02-19 10:23 | A.OFFVIS_ITS ---
Intake Intake Visit Reasons: LDCT SD Allergies No Known Allergies Allergy (Verified 10/23/22 17:14) HPI LDCT SD HPI Details Initial visit for this 73yo former smoker with a 50PYH. Patient started smoking at age 13 for 55 years at 1ppd. He quit smoking in 2018. . Denies marijuana use. Denies second hand smoke exposure. Reports a history of exposure to silica and diesel fumes. . Denies known family history of lung cancer. Denies personal history of cancers. Denies chest CT in last year. . Denies recent travel outside the [place]. Denies recent respiratory illness or recent hospitalization for respiratory issues. Denies testing positive for COVID. Admits receiving COVID Vaccine. x 4. . Denies fever, chills, new/worsening cough, hemoptysis, hoarseness or dysphagia. Denies significant chest pain, significant dyspnea or unintentional weight loss. Patient Lung Cancer Screening Questionnaire reviewed with patient by provider. . Shared Decision Making Completed. Patient meets criteria. Discussed in detail with patient, the risk vs benefit of LDCT screening. Patient consents to proceed with scan. Discussed and encouraged continued smoking cessation. [facility] Medical History (Updated 02/15/23 @ 11:46 by Juana Rodriguez PA-C) ICD (implantable cardioverter-defibrillator) in place (~2020) CAD (coronary artery disease) Ischemic cardiomyopathy CHF (congestive heart failure) Afib Chronic anticoagulation Hypertension Hyperlipidemia BJ (obstructive sleep apnea) COPD (chronic obstructive pulmonary disease) Personal history of nicotine dependence Surgical History (Updated 02/19/23 @ 14:24 by Juana Rodriguez PA-C) History of heart artery stent History of cardiac cath History of right inguinal hernia repair History of implantable cardiac defibrillator (ICD) Social History (Updated 02/19/23 @ 14:29 by Juana Rodriguez PA-C) Alcohol intake: former Patient Tobacco Use Status: Former Tobacco user Years Smoked: onset 13yo, 1ppd x 55yrs, 50pyh, quit 2018 service: No Assessment & Plan Assessment & Plan (1) Personal history of nicotine dependence: Comment: (former smoker, onset 13yo, 1ppd x 55yrs, 50pyh, quit 2018) Code(s): Z87.891 - Personal history of nicotine dependence Plan: - SDM visit completed today in office. - Patient meets criteria for LDCT for lung cancer screening purposes and is asymptomatic. - Smoking cessation counseling offered. Patients can always call [phone]. - Will arrange for a LDCT scan of the chest for screening purposes at [facility]. - Risks, benefits, and alternatives were discussed in detail and the patient agrees to proceed. - Risks discussed include but are not limited to: radiation exposure, anxiety during testing and while awaiting results, false negatives, false positives and possibility of additional intervention such as further imaging or surgical procedures for benign disease. - Benefits are obviously detection of lung cancer at an early stage which can lead to improved outcomes. - Discussed the importance of screening program compliance with adherence to yearly LDCT scan as scheduled - or sooner interval scans for personalized screening regimen. - Discussed follow up plan. Our office will send a letter discussing results and if needed set up phone call and office visit based on CT findings. - Patient educated on results categorization and the management decisions for suspicious findings potentially found on the screening LDCT scan. Any patient with a Lung RADS score of 3 or 4 will be reviewed by a multidisciplinary team at [facility] to form a plan of action in regards to scan findings. - If further work up is warranted for a suspicious lung finding this will be followed by the Lung Cancer Screening program in conjunction with the Thoracic Surgery Department at [facility]. - A copy of the office note and LDCT will be sent to the patient's PCP - as well as documentation on any associated further plans of care. - Incidental findings on LDCT are the PCP's responsibility. These findings are indicated with an S finding on the LDCT Assessment. A note discussing the findings will be sent to the PCP who is then responsible for further management. - All questions answered.? Coding Level of Care Code Lung Cancer Screening G0296 Diagnoses Personal history of nicotine dependence Z87.891
== END 2023-02-19 14:40 | disposition home or self-care (01) ==
PROVIDERS: PCP Nurse Practitioner Primary Care; Visit Provider Physician Assistant Medical
DX: Z87.891 Personal history of nicotine dependence (principal)
CPT/HCPCS: G0296

== ENCOUNTER 2023-02-19 14:36 | Outpatient (REF) | payer MEDICARE, OTHER, SELFPAY ==
--- NOTE | ~2023-02-19 | CT_ITS ---
EXAMINATION: CT CHEST LOW-DOSE SCREENING WITHOUT CONTRAST HISTORY: Asymptomatic patient meeting criteria for lung screening. PATIENT PACK-YEAR HISTORY: 59 Current Smoker: No If former smoker, years since quittin COMPARISON: None TECHNIQUE: Multidetector volumetric non-contrast CT imaging of the chest was performed using low dose screening CT technique. Axial thin section 0.625 mm reformations in soft tissue and lung windows were obtained. Sagittal and coronal reformations were obtained. Axial MIP images were also created and reviewed. RECONSTRUCTED WIDTH: 1.25 mm x 1.25 mm TOTAL EXAM DLP: 67 mGy-cm CTDIvol: 1.49 L mGy FINDINGS: LUNGS: Mild centrilobular emphysema. Faint groundglass opacities in the right upper lobe on image 147 and on image 186. 6 mm nodule right minor fissure on image 269. No focal consolidation. Central airways are patent. PLEURA: No pleural effusion. LYMPH NODES: No bulky mediastinal, hilar or axillary lymphadenopathy. MEDIASTINUM: Great vessels are of normal caliber. Moderate pericardial effusion. CORONARY ARTERY CALCIFICATIONS: Severe. CHEST WALL/BREASTS: No acute abnormality. UPPER ABDOMEN: This study was performed without contrast and with lower than standard dose, reducing the sensitivity for detection of small lesions in the upper abdomen. OSSEOUS STRUCTURES: No destructive bone lesions. CT/CT lung screening IMPRESSION: 6 mm fissural pulmonary nodule. LUNG-RADS CATEGORY ASSESSMENT: 3. Probably benign. Probably benign findings, including nodules with a low likelihood of becoming a clinically active cancer. Recommend 6 month followup low-dose CT scan. Probability of malignancy 1 to 2%. INCIDENTAL FINDINGS (S CATEGORY): Finding: No incidental findings. Significance category: Normal or normal variant. RECOMMENDATION: Low dose lung CT. overall in 6 months. Visual estimate of coronary calcified plaque burden: Severe. However, this exam cannot replace a dedicated cardiac CT calcium score for accurate assessment. LUNG-RADS CATEGORY: 3 -- PROBABLY BENIGN
== END 2023-02-19 14:37 | disposition home or self-care (01) ==
LOC: HO.CT 14:36
PROVIDERS: PCP Nurse Practitioner Primary Care; Visit Provider Physician Assistant Medical
DX: Z12.2 Encounter for screening for malignant neoplasm of respiratory organs (principal); Z87.891 Personal history of nicotine dependence
CPT/HCPCS: 71271; G0296

== ENCOUNTER 2023-05-03 12:53 | Outpatient (AMB) | payer MEDICARE, MEDICAID, SELFPAY ==
--- NOTE | 2023-05-03 12:57 | A.OFFVIS_ITS ---
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 Allergies No Known Allergies Allergy (Verified 05/03/23 13:05) HPI HPI Comments History of Present Illness Details 73 y/o male patient with Afib and BJ pr esents for new in-person visit to manage sleep apnea. Pt reports he was diagnosed with BJ about 10 years ago, and used CPAP. He moved from [place] and his CPAP was broken and could not fix it and also did not received supplies. Pt reports disrupted, non refreshing sleep with daytime sleepiness. He snores and wakes up gasping. He gained about 20 lb since the last sleep study. Sleep questionnaire: Have you ever been diagnosed with a sleep disorder? Yes, BJ. Have you ever had a sleep study in the past?Yes, in lab sleep. Have you ever been treated for a sleep disorder? Yes. CPAP. Do you take medications for a sleep disorder? No. Do you snore? Yes. Do you wake up gasping at night? Yes. Do you have episodes of apneas? Yes. If yes, are they witnessed? Yes. Do you have episodes of nocturnal chest pain or dyspnea? Yes. Do you have difficulty initiating sleep? Yes, sometimes. Do you have difficulty maintaining sleep? Yes. Do you wake up tired? Yes. Do you have headaches upon awakening? No. Do you wake up with dry mouth or throat? Yes. Do you have GERD? No. Do you have nocturia? Yes. Do you have nocturnal leg cramps? No. Do you have symptoms of restless legs? No. Do you act out your dreams? Yes, sometimes. Sleep hygiene questionnaire: What is your usual sleep routine? Usual bedtime is at 9 pm-12 am; Usual wake up time is at 6 am. Do you take naps? Occasionally. Is your sleep environment cool, dark, and quiet? Yes. Do you exercise? No. Do you take caffeine or other stimulants? Coffee occasionally, soda thought the day. Do you use electronics in bed? Yes, sometimes. What is your work schedule? Retired. Hypersomnolence questionnaire: Do you have daytime tiredness or fatigue? Yes. Do you easily fall asleep when inactive? Yes. Have you ever had episodes of sudden weakness? No. Have you ever had episodes of sudden weakness associated with strong emotions? No. PFSH Medical History ICD (implantable cardioverter-defibrillator) in place (~2020) CAD (coronary artery disease) Ischemic cardiomyopathy CHF (congestive heart failure) Afib Chronic anticoagulation Hypertension Hyperlipidemia BJ (obstructive sleep apnea) COPD (chronic obstructive pulmonary disease) Personal history of nicotine dependence Surgical History History of heart artery stent History of cardiac cath History of right inguinal hernia repair History of implantable cardiac defibrillator (ICD) Social History Alcohol intake: former Comment: [facility] Patient Tobacco Use Status: Former Tobacco user Years Smoked: onset 13yo, 1ppd x 55yrs, 50pyh, quit 2018 service: No Review of Systems Const All systems reviewed & are unremarkable except as noted in HPI and below ENT Reports Normal hearing present Neuro Reports Normal hearing present Physical Exam Vital Signs: Last Vital Signs Pulse 79 05/03/23 13:02 BP 128/72 05/03/23 13:02 Pulse Ox 97 05/03/23 13:02 Oxygen Delivery Method Room Air 05/03/23 13:02 BMI result Body Mass Index 29.9 Const General: cooperative Nutritional Appearance: overweight Orientation/consciousness: patient oriented x3 Neck Neck: Yes full ROM and Yes supple Resp Effort & Inspection: normal respiratory effort and able to speak in complete sentences Neuro General: patient oriented x3, gait normal, moves all extremities and no focal motor deficits Cranial nerves: Yes Bilaterally intact EOM present, Yes Normal facial strength present, Yes Midline tongue present, Yes Symmetric palate elevation present, Yes Normal hearing present, Yes Ability to bilaterally rotate head present and Yes Ability to bilaterally elevate shoulders present Cognition (Neuro): normal cognition Gait exam (Neuro): Normal gait present Motor exam (neuro): 5/5 motor strength present throughout and Pronator motor function not present Psych Appearance: grossly normal Mental Status: mental status grossly normal Speech and movement: Normal speech and movement present Affect: normal affect Attitude: cooperative Assessment & Plan Assessment & Plan (1) BJ (obstructive sleep apnea): Code(s): G47.33 - Obstructive sleep apnea (adult) (pediatric) Plan Pt is advised to undergo in lab sleep study to assess for sleep apnea: Will f/u with pt after study to discuss results and appropriate treatment options. Sleep hygiene education provided, limit soda intake in the afternoon. Pt to call with any worsening concerns or questions. Orders: Orders RT PSG in-lab sleep study Today G47.33 - Obstructive sleep apnea (adult) (pediatric), I21.4 - Non-ST elevation (NSTEMI) myocardial infarction, I25.10 - Atherosclerotic heart disease of [place] coronary artery without angina pectoris, I48.91 - Unspecified atrial fibrillation Coding Level of Care Code New Pt Level 3 (96525) Diagnoses BJ (obstructive sleep apnea) G47.33
[2023-05-03 13:02] VITALS: BP 128/72; PULSE 79; O2SAT 97; BMI 29.9
== END 2023-05-03 13:27 | disposition home or self-care (01) ==
PROVIDERS: PCP Nurse Practitioner Primary Care; Visit Provider Nurse Practitioner Family
DX: G47.33 Obstructive sleep apnea (adult) (pediatric) (principal)
CPT/HCPCS: 99203

== ENCOUNTER → 2023-05-03 12:53 | Outpatient (BNVA) | payer MEDICARE, MEDICAID, SELFPAY | PROVIDERS: PCP Nurse Practitioner Primary Care; Visit Provider Nurse Practitioner Family | DX: G47.33 Obstructive sleep apnea (adult) (pediatric) (principal); I48.91 Unspecified atrial fibrillation; I21.4 Non-ST elevation (NSTEMI) myocardial infarction; I25.10 Atherosclerotic heart disease of native coronary artery without angina pectoris; I10 Essential (primary) hypertension; Z98.890 Other specified postprocedural states; Z95.810 Presence of automatic (implantable) cardiac defibrillator; Z95.5 Presence of coronary angioplasty implant and graft | CPT/HCPCS: 99202 ==

== ENCOUNTER → 2023-05-19 20:30 | Outpatient (REF) | payer MEDICARE, MEDICAID, SELFPAY | LOC: HO.SL 20:30 | PROVIDERS: PCP Nurse Practitioner Primary Care; Visit Provider Nurse Practitioner Family | DX: G47.33 Obstructive sleep apnea (adult) (pediatric) (principal) | CPT/HCPCS: 95810 ==

== ENCOUNTER → 2023-05-20 00:01 | Outpatient (BNV) | payer MEDICARE, MEDICAID, SELFPAY | PROVIDERS: PCP Nurse Practitioner Primary Care; Visit Provider Psychiatry & Neurology Neurology | DX: G47.33 Obstructive sleep apnea (adult) (pediatric) (principal) | CPT/HCPCS: 95810 ==

== ENCOUNTER → 2023-07-05 19:30 | Outpatient (REF) | payer MEDICARE, MEDICAID, SELFPAY | LOC: HO.SL 19:30 | PROVIDERS: PCP Nurse Practitioner Primary Care; Visit Provider Nurse Practitioner Family | DX: G47.33 Obstructive sleep apnea (adult) (pediatric) (principal) | CPT/HCPCS: 95811 ==

== ENCOUNTER → 2023-07-05 20:51 | Outpatient (BNV) | payer MEDICARE, MEDICAID, SELFPAY | PROVIDERS: PCP Nurse Practitioner Primary Care; Visit Provider Internal Medicine | DX: R06.83 Snoring (principal) | CPT/HCPCS: 95811 ==

== ENCOUNTER 2023-08-13 12:51 | Outpatient (REF) | payer MEDICARE, MEDICAID, SELFPAY ==
[2023-08-13 16:23] LABS: Alanine Aminotransferase 20 U/L (0-40); Alkaline Phosphatase 103 U/L (39-117); Anion Gap 12 (12-20); Aspartate Amino Transferase 22 U/L (5-37); Bilirubin Total 0.5 mg/dL (0.0-1.0); Blood Urea Nitrogen 15 mg/dL (9-16); Calcium 8.8 mg/dL (8.4-10.2); Carbon Dioxide 21 mmol/L (22-29); Chloride 111 mmol/L (96-108); Estimated Glomerular Filt Rate 45; Glucose Random 90 mg/dL (60-115); Potassium 4.3 mmol/L (3.3-5.1); Sodium 140 mmol/L (135-145); Total Protein 6.4 g/dL (6.5-8.0)
== END 2023-08-13 12:52 | disposition home or self-care (01) ==
LOC: HO.HHCL 12:51
PROVIDERS: Visit Provider Nurse Practitioner Primary Care
DX: I11.0 Hypertensive heart disease with heart failure (principal); I21.4 Non-ST elevation (NSTEMI) myocardial infarction; I50.22 Chronic systolic (congestive) heart failure; R39.12 Poor urinary stream; Z12.5 Encounter for screening for malignant neoplasm of prostate
CPT/HCPCS: 36415; 80053; 84153

== ENCOUNTER 2023-08-25 09:00 | Emergency (ER) | payer MEDICARE, MEDICAID, SELFPAY ==
--- NOTE | ~2023-08-25 | XR_ITS ---
EXAMINATION: XR TOES, LEFT CLINICAL INFORMATION: Injury COMPARISON: None available. TECHNIQUE: 3 views of the left toes were obtained. FINDINGS: Minimally displaced fracture involving the third proximal phalangeal proximal metadiaphysis with potential intra-articular extension. Multi joint arthritic changes. Soft tissues are unremarkable. XR/XR toe LT min 2V IMPRESSION: 1. Minimally displaced fracture involving the third proximal phalangeal proximal metadiaphysis with potential intra-articular extension. 2. Multi joint arthritic changes.
[2023-08-25 09:03] VITALS: BP 156/88; PULSE 80; RESP 18; TEMP 36.9; O2SAT 99; BMI 28.2
--- NOTE | 2023-08-25 10:44 | ED_ITS ---
HPI - Extremity Problem General Chief complaint: Extremity Problem Stated complaint: ? Broken Toe L Foot Time Seen by Provider: 08/25/23 10:22 Source: patient Mode of arrival: ambulatory Limitations: no limitations History of Present Illness HPI Narrative: 73-year-old male presents status post stubbing his toe few weeks ago, he reports his left middle toe is hurting and it has become more swollen and painful. Has been ambulatory ever since. Has not taken anything for pain. Denies numbness, tingling, fevers, chills, chest pain, shortness breath, nausea, vomiting, abdominal pain, headache, vision changes, dizziness and weakness. Patient is taking apixaban. No other injuries sustained Related Data Home Medications Medication Instructions Recorded Confirmed carvedilol 12.5 mg tablet 12.5 mg PO BID 11/20/22 11/20/22 cholecalciferol (vitamin D3) 25 25 mcg PO DAILY 11/20/22 11/20/22 mcg (1,000 unit) tablet cyanocobalamin (vitamin B-12) 1,000 mcg PO DAILY 11/20/22 11/20/22 1,000 mcg tablet ezetimibe 10 mg tablet 10 mg PO DAILY 11/20/22 11/20/22 fluticasone furoate 200 1 ea inhalation DAILY 11/20/22 11/20/22 mcg-vilanterol 25 mcg/dose inhalation powder (Breo Ellipta) ipratropium 20 mcg-albuterol 100 1 puff inhalation Q6H PRN 11/20/22 11/20/22 mcg/actuation mist for inhalation Shortness Of Breath (Combivent Respimat) lisinopril 2.5 mg tablet 2.5 mg PO BID 11/20/22 11/20/22 amiodarone 200 mg tablet 200 mg PO DAILY 05/03/23 apixaban 5 mg tablet (Eliquis) 5 mg PO BID 05/03/23 clopidogrel 75 mg tablet 75 mg PO DAILY 05/03/23 furosemide 40 mg tablet 40 mg PO BID 05/03/23 rosuvastatin 20 mg tablet 20 mg PO BEDTIME 05/03/23 Previous Rx's Medication Instructions Recorded acetaminophen 325 mg capsule 650 mg (2 x 325 mg) PO Q4H PRN 08/25/23 (Tylenol) pain #30 caps Allergies Allergy/AdvReac Type Severity Reaction Status Date / Time No Known Allergies Allergy Verified 05/03/23 13:05 Review of Systems Review of Systems: Yes all other systems are reviewed and are negative [facility] Past Medical History Attestation statement: The following information was validated with the patient. Source: old records reviewed and nursing notes reviewed Medical History ICD (implantable cardioverter-defibrillator) in place (~2020) CAD (coronary artery disease) Ischemic cardiomyopathy CHF (congestive heart failure) Afib Chronic anticoagulation Hypertension Hyperlipidemia BJ (obstructive sleep apnea) COPD (chronic obstructive pulmonary disease) Personal history of nicotine dependence Surgical History History of heart artery stent History of cardiac cath History of right inguinal hernia repair History of implantable cardiac defibrillator (ICD) Social History Social History Alcohol intake: former Comment: [facility] Patient Tobacco Use Status: Former Tobacco user Years Smoked: onset 13yo, 1ppd x 55yrs, 50pyh, quit 2017 Advance Directives: No Advance Directives Information Provided: No service: No Physical Exam Vital Signs: Vital Signs: Last Vital Signs Temp 98.5 F 08/25/23 09:03 Pulse 80 08/25/23 09:03 Resp 18 08/25/23 09:03 BP 156/88 H 08/25/23 09:03 Pulse Ox 99 08/25/23 09:03 O2 Del Method Room Air 08/25/23 09:03 BMI result Body Mass Index 28.2 vss Appearance: Alert.? Oriented X3.? No acute distress.? Head: Normocephalic, atraumatic, no step-offs or deformities Eyes: Pupils equal, round and reactive to light.? Neck: Normal inspection.? Neck supple.? CVS:Pulses normal.? Respiratory: No respiratory distress Skin: Skin warm and dry.? Normal skin color.? Normal skin turgor.? Extremities: No lower extremity edema.? No calf ttp. 5/5 strength to bilateral upper and lower extremities +swelling noted overlying the left middle toe with overlying ecchymosis. 2+ dorsalis pedis, anterior tibialis posterior tibialis pulses equal bilateral. Patient ambulatory with slight limp favoring his right side. Normal sensation distally. No footdrop. Neuro: Oriented X 3.? No motor deficit.? No sensory deficit. Course Reevaluation(s) Reevaluation #1: X-ray of toe showing minimally displaced fracture involving the 3rd proximal phalangeal proximal metadiaphysis with potential intra-articular extension. Multi joint arthritic changes. Patient will be given extra-strength Tylenol and a postop shoe. Patient to follow-up with the orthopedic team. Educated patient on diagnosis and treatment plan, answered all question, patient verbalizes understanding. At this time patient will be discharged home, advised to return with new or worsening symptoms. Educated on worrisome signs and symptoms and when to return. At this time I feel comfortable discharge home. Time: 10:52 Medical Decision Making Medical Decision Making [facility] Narrative: 1045 73-year-old male presents with left middle toe pain status post stubbing his toe a few weeks ago. Reports pain is worsening Physical exam swelling noted overlying the left middle toe with overlying ecchymosis. 2+ dorsalis pedis, anterior tibialis posterior tibialis pulses equal bilateral. Patient ambulatory with slight limp favoring his right side. Normal sensation distally. No footdrop. History and physical exam concerning for fracture versus dislocation versus sprain or strain. Unlikely neurovascular compromise, acute threat to limb. Plan at this time imaging Differential Diagnosis Differential Diagnoses: The differential diagnosis associated with the presentation includes History and physical exam concerning for fracture versus dislocation versus sprain or strain. Unlikely neurovascular compromise, acute threat to limb. Admission/Observation Consideration of admission/observation: Escalation of care including admission/observation considered No indicaiton Independent Interpretation I performed an independent interpretation of an: Plain X-Ray ( swelling noted overlying the left middle toe with overlying ecchymosis. 2+ dorsalis pedis, anterior tibialis posterior tibialis pulses equal bilateral. Patient ambulatory with slight limp favoring his right side. Normal sensation distally. No footdrop.) Radiology Impression Discussion of test interpretation with radiology: I have reviewed the radiologist's reading. Prescription Management I considered prescription management with: Pain Medication Chronic Conditions Patient?s care impacted by: Other (ICD in place, CAD, NSTEMI, AFib on blood thinners, BJ) Critical Care Time Critical Care Time Critical Care Time: No Discharge Plan Discharge Clinical Impression: Fracture of toe Patient Disposition: Home, Self-Care Instructions: Toe Fracture (ED), Foot Fracture in Adults (ED) Additional Instructions: Take your medications as prescribed. If you were prescribed antibiotics today, it is important that you take your medication to their entirety, do not skip any doses, do not finish them early. Follow-up with your primary care provider this week. Return to the emergency department with new or worsening symptoms. Such as fevers, chills, chest pain, shortness of breath, nausea, vomiting, dizziness, headache, vision changes, lethargy In case of emergency call 911 XR/XR toe LT min 2V IMPRESSION: 1. Minimally displaced fracture involving the third proximal phalangeal proximal metadiaphysis with potential intra-articular extension. 2. Multi joint arthritic changes. Prescriptions: New acetaminophen [Tylenol] 325 mg capsule 650 mg PO Q4H PRN (Reason: pain) Qty: 30 0RF No Action carvedilol 12.5 mg tablet 12.5 mg PO BID lisinopril 2.5 mg tablet 2.5 mg PO BID ezetimibe 10 mg tablet 10 mg PO DAILY fluticasone furoate-vilanterol [Breo Ellipta] 200-25 mcg/dose blister with device 1 ea inhalation DAILY Combivent Respimat 20-100 mcg/actuation mist 1 puff INHALATION Q6H PRN (Reason: Shortness Of Breath) cyanocobalamin (vitamin B-12) 1,000 mcg Tablet 1,000 mcg PO DAILY cholecalciferol (vitamin D3) 25 mcg (1,000 unit) Tablet 25 mcg PO DAILY Eliquis 5 mg tablet 5 mg PO BID furosemide 40 mg tablet 40 mg PO BID amiodarone 200 mg tablet 200 mg PO DAILY rosuvastatin 20 mg tablet 20 mg PO BEDTIME clopidogrel 75 mg tablet 75 mg PO DAILY Referrals: [facility] [Provider Group] - 1 week Pam Torres NP [Primary Care Provider] - 2 days Stand Alone Forms: Work/School Release
[2023-08-25 11:45] VITALS: BP 156/88; PULSE 80; RESP 18; TEMP 36.9; O2SAT 99
== END 2023-08-25 11:49 | disposition home or self-care (01) ==
PROVIDERS: Emergency Provider Emergency Medicine Emergency Medical Services; PCP Nurse Practitioner Primary Care
DX: S92.502A Displaced unspecified fracture of left lesser toe(s), initial encounter for closed fracture (principal); W18.40XA Slipping, tripping and stumbling without falling, unspecified, initial encounter; Y93.89 Activity, other specified; Y92.9 Unspecified place or not applicable; Y99.9 Unspecified external cause status; M79.675 Pain in left toe(s)
CPT/HCPCS: 73660; 99283

== ENCOUNTER 2023-09-01 13:49 | Outpatient (AMB) | payer MEDICARE, MEDICAID, SELFPAY ==
--- NOTE | 2023-09-01 14:17 | MHC.OFFVIS ---
Intake Vital Signs 09/01/23 14:26 Height 5 ft 7 in Weight 192 lb 6 oz BMI 30.1 BP 124/72 Blood Pressure Location Lt brachial Position Sitting Pulse 66 Pulse Source Pulse Oximeter Pulse Oximetry (%) 98 Oxygen Delivery Method Room Air Intake Visit Reasons: 4 mo f/u -BJ - Confirmed Intake Note: Patient presents for 4 months F/U. Allergies No Known Allergies Allergy (Verified 09/01/23 14:26) HPI HPI Comments History of Present Illness Details 73 y/o male patient presents for follow up of sleep study. The PSG sleep study in Apr, 2023 revealed the severe degree of sleep apnea with increased severity in REM sleep. The AHI was 26/hr, REM AHI was 40/hr and oxygen kylie was 83%. Pt underwent CPAP titration study, and his breathing and oxygenation stabilized with CPAP at [id number]. New CPAP prescription sent to [facility], but he is not eligible for a new CPAP until 06/13/26. He recently had a new CPAP from [place]. [facility] Medical History ICD (implantable cardioverter-defibrillator) in place (~2020) CAD (coronary artery disease) Ischemic cardiomyopathy CHF (congestive heart failure) Afib Chronic anticoagulation Hypertension Hyperlipidemia BJ (obstructive sleep apnea) COPD (chronic obstructive pulmonary disease) Personal history of nicotine dependence Surgical History History of heart artery stent History of cardiac cath History of right inguinal hernia repair History of implantable cardiac defibrillator (ICD) Social History Alcohol intake: former Comment: [facility] Patient Tobacco Use Status: Former Tobacco user Years Smoked: onset 13yo, 1ppd x 55yrs, 50pyh, quit 2017 service: No Review of Systems Const All systems reviewed & are unremarkable except as noted in HPI and below ENT Reports Normal hearing present Neuro Reports Normal hearing present Physical Exam Vital Signs: Last Vital Signs Pulse 66 09/01/23 14:26 BP 124/72 09/01/23 14:26 Pulse Ox 98 09/01/23 14:26 Oxygen Delivery Method Room Air 09/01/23 14:26 BMI result Body Mass Index 30.1 Const General: cooperative Nutritional Appearance: overweight Orientation/consciousness: patient oriented x3 Neck Neck: Yes full ROM and Yes supple Resp Effort & Inspection: normal respiratory effort and able to speak in complete sentences Neuro General: patient oriented x3, gait normal, moves all extremities and no focal motor deficits Cranial nerves: Yes Bilaterally intact EOM present, Yes Normal facial strength present, Yes Midline tongue present, Yes Symmetric palate elevation present, Yes Normal hearing present, Yes Ability to bilaterally rotate head present and Yes Ability to bilaterally elevate shoulders present Cognition (Neuro): normal cognition Gait exam (Neuro): Normal gait present Motor exam (neuro): 5/5 motor strength present throughout and Pronator motor function not present Psych Appearance: grossly normal Mental Status: mental status grossly normal Speech and movement: Normal speech and movement present Affect: normal affect Attitude: cooperative Assessment & Plan Assessment & Plan (1) BJ (obstructive sleep apnea): Comment: Severe degree of sleep apnea with increased severity in REM. The AHI was 26/hr, REM AHI was 40/hr, and oxygen kylie was 83% Code(s): G47.33 - Obstructive sleep apnea (adult) (pediatric) Plan New CPAP prescription with supply order given to patient to bring [facility] to set up the pressure and open an account. [facility] walk in hour information given to patient. Start CPAP at [id number]. Stressed compliance, use CPAP nightly and more than 4 hrs. Coding Level of Care Code Est Pt Level 3 (44482) Diagnoses BJ (obstructive sleep apnea) G47.33
[2023-09-01 14:26] VITALS: BP 124/72; PULSE 66; O2SAT 98; BMI 30.1
== END 2023-09-01 14:39 | disposition home or self-care (01) ==
PROVIDERS: PCP Nurse Practitioner Primary Care; Visit Provider Nurse Practitioner Family
DX: G47.33 Obstructive sleep apnea (adult) (pediatric) (principal)
CPT/HCPCS: 99213

== ENCOUNTER → 2023-09-01 13:49 | Outpatient (BNVA) | payer MEDICARE, MEDICAID, SELFPAY | PROVIDERS: PCP Nurse Practitioner Primary Care; Visit Provider Nurse Practitioner Family | DX: G47.33 Obstructive sleep apnea (adult) (pediatric) (principal) | CPT/HCPCS: 99212 ==

== ENCOUNTER 2023-09-03 14:26 | Outpatient (AMB) | payer MEDICARE, MEDICAID, SELFPAY ==
--- NOTE | 2023-09-03 14:27 | MHC.OFFVIS ---
Intake Vital Signs 09/03/23 14:28 Height 5 ft 7 in Weight 192 lb BMI 30.1 Intake Visit Reasons: FC-Left toe fracture-DOI two weeks ago Intake Note: Victoriano a 73 year old male presents today for an ER follow up of left middle toe. Patient reports a few weeks ago he stubbed his toe and presented to [facility] a few weeks later due to continued pain and swelling. Xrays were taken and placed in a post op shoe. Pt states pain and swelling. 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 Patient presented to the ED on 08/25/2023 status post stubbing his toe a few weeks prior. He reported left middle toe pain with edema. X-rays were obtained. He was placed in a post-op shoe and prescribed Acetaminophen 650 mg PO Q4H PRN. While in the office today the patient reports stubbing his toe a few weeks ago. He confirms presentation to the ED a few weeks after the injury with a complaint of continued pain and edema. He states this pain and edema continue in the left foot 3rd digit. [facility] Medical History ICD (implantable cardioverter-defibrillator) in place (~2020) CAD (coronary artery disease) Ischemic cardiomyopathy CHF (congestive heart failure) Afib Chronic anticoagulation Hypertension Hyperlipidemia BJ (obstructive sleep apnea) COPD (chronic obstructive pulmonary disease) Personal history of nicotine dependence Surgical History History of heart artery stent History of cardiac cath History of right inguinal hernia repair History of implantable cardiac defibrillator (ICD) Social History Alcohol intake: former Comment: [facility] Patient Tobacco Use Status: Former Tobacco user Years Smoked: onset 13yo, 1ppd x 55yrs, 50pyh, quit 2017 service: No Review of Systems Const All systems reviewed & are unremarkable except as noted in HPI and below Physical Exam Vital Signs: BMI result Body Mass Index 30.1 Const General: cooperative and no acute distress Orientation/consciousness: patient oriented x3 Resp Effort & Inspection: normal respiratory effort and able to speak in complete sentences Cardio Peripheral pulses: Peripheral pulses 2+ throughout Skin General skin exam: no rashes or lesions noted Neuro General: patient oriented x3 Extrem Other: Left middle toe: Ecchymosis resolving. Tenderness to palpation over the distal phalanx. Sensation intact. Capillary refill is brisk. Office Procedures Fracture Care Fracture Billing Code: Fracture Billing Code Assessment & Plan Assessment & Plan (1) Other fracture of left lesser toe(s), initial encounter for closed fracture: Comment: Left middle toe Code(s): S92.592A - Other fracture of left lesser toe(s), initial encounter for closed fracture Plan Mr. Patricia is a 73-year-old male who, is currently taking Apixaban, presents in the office today, as a new patient, for an evaluation of left foot pain. Patient presented to the ED on 08/25/2023 status post stubbing his toe a few weeks prior. He reported left middle toe pain with edema. X-rays were obtained. He was placed in a post-op shoe and prescribed Acetaminophen 650 mg PO Q4H PRN. While in the office today the patient reports stubbing his toe a few weeks ago. He confirms presentation to the ED a few weeks after the injury with a complaint of continued pain and edema. He states this pain and edema continue in the left foot 3rd digit. Patient may remain in the post-op shoe for the next 1-2 weeks. I educated him that he may begin transitioning out of the post-op shoe into a normal supportive sneaker as pain allows. I did explain to him that the sooner he makes this transition the better for the healing process. Follow up will be PRN, or sooner if needed. X-rays of the left foot, obtained on 08/25/2023, revealed: FINDINGS: Minimally displaced fracture involving the third proximal phalangeal proximal metadiaphysis with potential intra-articular extension. Multi joint arthritic changes. Soft tissues are unremarkable. IMPRESSION: 1. Minimally displaced fracture involving the third proximal phalangeal proximal metadiaphysis with potential intra-articular extension. 2. Multi joint arthritic changes. Patient Instructions: Scribed by Karla Nieves biomedical engineering director, for Maria Luisa Pavon PA-C on 09/03/2023 at 2:33 pm, EST. Coding Level of Care Code New Pt Level 4 (50199) Diagnoses Other fracture of left lesser toe(s), initial encounter for closed fracture S92.592A CPT Codes Fracture Care - Fracture Billing Code: Fracture Billing Code ([id number])
[2023-09-03 14:28] VITALS: BMI 30.1
== END 2023-09-03 15:47 | disposition home or self-care (01) ==
LOC: HO.HOS 14:26
PROVIDERS: PCP Nurse Practitioner Primary Care; Visit Provider Physician Assistant
DX: S92.592A Other fracture of left lesser toe(s), initial encounter for closed fracture (principal)
CPT/HCPCS: 99203

== ENCOUNTER → 2023-09-03 14:26 | Outpatient (BNVA) | payer MEDICARE, MEDICAID, SELFPAY | PROVIDERS: PCP Nurse Practitioner Primary Care; Visit Provider Physician Assistant | DX: S92.592A Other fracture of left lesser toe(s), initial encounter for closed fracture (principal) | CPT/HCPCS: 99202 ==

== ENCOUNTER 2023-09-07 14:41 | Outpatient (AMB) | payer MEDICARE, MEDICAID, SELFPAY ==
--- NOTE | 2023-09-07 14:48 | MHC.OFFVIS ---
Intake Vital Signs 09/07/23 14:50 Height 5 ft 7 in Weight 192 lb BMI 30.1 BP 119/58 L Blood Pressure Location Lt brachial Position Sitting Pulse 75 Intake Visit Reasons: Colonoscopy Screening Intake Note: Patient new consult for colonoscopy screening. Manager Respiratory Required: No Accompanied by: Self / Same As Patient Allergies No Known Allergies Allergy (Verified 09/07/23 14:50) HPI HPI Comments History of Present Illness Details A 73 y/o male referred for colonoscopy- he had a colonoscopy- about 3 years ago in [place]-he had a polyp-no further detail Appetite is good Bowels are good SOBOE- Hx of colonoscopy and pill cam colon polyp- was ok [place] Eliquis and plavix - [facility] cardiology- has stents-Defibrillator- He has no nausea, vomiting, hematemesis, hematochezia fever chills PFSH Medical History ICD (implantable cardioverter-defibrillator) in place (~2020) CAD (coronary artery disease) Ischemic cardiomyopathy CHF (congestive heart failure) Afib Chronic anticoagulation Hypertension Hyperlipidemia BJ (obstructive sleep apnea) COPD (chronic obstructive pulmonary disease) Personal history of nicotine dependence Surgical History History of heart artery stent History of cardiac cath History of right inguinal hernia repair History of implantable cardiac defibrillator (ICD) Social History Alcohol intake: former Comment: [facility] Patient Tobacco Use Status: Former Tobacco user Years Smoked: onset 13yo, 1ppd x 55yrs, 50pyh, quit 2018 service: No Current occupational status: unemployed Review of Systems Const All systems reviewed & are unremarkable except as noted in HPI and below Card Denies chest pain and Reports dyspnea on exertion (occ) Resp Reports dyspnea on exertion (occ) GI Denies abdominal pain, Denies bloating, Denies hematochezia, Denies change in bowel habits, Denies change in stool character, Denies heartburn, Denies nausea and Denies vomiting Physical Exam Vital Signs: Last Vital Signs Pulse 75 09/07/23 14:50 BP 119/58 L 09/07/23 14:50 BMI result Body Mass Index 30.1 Const General: cooperative, healthy appearing and comfortable Orientation/consciousness: patient oriented x3 Limitations: no limitations Resp Effort & Inspection: normal respiratory effort and able to speak in complete sentences Auscultation: clear to auscultation bilaterally, no rales, no rhonchi and no wheezes Cardio Rate: regular rate Rhythm: regular rhythm GI Palpation (GI): Soft to palpation and nontender Auscultation: normal bowel sounds Skin General skin exam: no rashes or lesions noted Neuro General: patient oriented x3 Extrem General: Yes full ROM Psych Appearance: grossly normal and well kempt Mental Status: mental status grossly normal Speech and movement: Normal speech and movement present and Clear speech present Affect: normal affect Attitude: cooperative Thought process: Normal thought process present Thought content: Normal thought content present Insight: Good insight present (Psych) Judgement: Good judgement present (Psych) Assessment & Plan Assessment & Plan (1) ICD (implantable cardioverter-defibrillator) in place: Onset Date: ~2020 Comment: ([employer] ICD - placed 06/07/2020) Code(s): Z95.810 - Presence of automatic (implantable) cardiac defibrillator (2) Afib: Comment: (Paroxysmal atrial fibrillation - on chronic anticoag) Code(s): I48.91 - Unspecified atrial fibrillation Plan: Continue to follow with cardiology (3) History of colon polyps: Comment: unclear- when-type Code(s): Z86.010 - Personal history of colonic polyps Plan PT HAS DERFIBRILLATOR colonoscopy- mg prep ANESTHESIA CONSULT [facility]- PLAVIX- ELIQUIS TYPICALLY- D/C ELIQUIS 2 DAYS PLAVIX 3 DAYS- NEED AUTHORIZATION Orders: Orders Colonoscopy - GI Use Only 09/07/23 Z12.11 - Encounter for screening for malignant neoplasm of colon Medications: New bisacodyl (Dulcolax (bisacodyl)) Day before procedure @ 12 noon Take 4 tablets by mouth followed by large glass of water 20 mg (4 x 5 mg) PO ONCE PRN 4 tabs 0RF colonoscopy prep 1 day Z12.11 - Encounter for screening for malignant neoplasm of colon polyethylene glycol 3350 (Miralax) Take as directed by mouth the day before your procedure. 238 grams PO ONCE PRN 238 grams 0RF laxative effect 1 day Patient Instructions: PT HAS DERFIBRILLATOR colonoscopy- mg prep ANESTHESIA CONSULT [facility]- PLAVIX- ELIQUIS TYPICALLY- D/C ELIQUIS 2 DAYS PLAVIX 3 DAYS- NEED AUTHORIZATION Encouraged to call with any questions concerns, change in health status or medication No major barriers to understanding were identified Coding Level of Care Code New Pt Level 4 (01658) Diagnoses ICD (implantable cardioverter-defibrillator) in place Z95.810 Afib I48.91 History of colon polyps Z86.010 Time Spent (min) 30
[2023-09-07 14:50] VITALS: BP 119/58; PULSE 75; BMI 30.1
== END 2023-09-07 16:21 | disposition home or self-care (01) ==
PROVIDERS: PCP Nurse Practitioner Primary Care; Visit Provider Physician Assistant
DX: Z95.810 Presence of automatic (implantable) cardiac defibrillator (principal); I48.91 Unspecified atrial fibrillation; Z86.010 Personal history of colon polyps
CPT/HCPCS: 99204; 99214

== ENCOUNTER → 2023-09-07 14:41 | Outpatient (BNVA) | payer MEDICARE, MEDICAID, SELFPAY | PROVIDERS: PCP Nurse Practitioner Primary Care; Visit Provider Physician Assistant | DX: Z12.11 Encounter for screening for malignant neoplasm of colon (principal); I48.91 Unspecified atrial fibrillation; Z86.010 Personal history of colon polyps; Z95.810 Presence of automatic (implantable) cardiac defibrillator | CPT/HCPCS: 99202 ==

== ENCOUNTER 2023-09-17 15:10 | Outpatient (REF) | payer MEDICARE, MEDICAID, SELFPAY ==
[2023-09-17 16:59] LABS: Estimated Average Glucose 117 mg/dL; Hemoglobin A1c % 5.7 % (<6.0)
[2023-09-17 17:25] LABS: Anion Gap 9 (12-20); Blood Urea Nitrogen 10 mg/dL (9-16); Calcium 8.8 mg/dL (8.4-10.2); Carbon Dioxide 24 mmol/L (22-29); Chloride 112 mmol/L (96-108); Estimated Glomerular Filt Rate 54; Glucose Random 100 mg/dL (60-115); Potassium 3.4 mmol/L (3.3-5.1); Sodium 142 mmol/L (135-145)
[2023-09-17 17:37] LABS: Microalbum/Creatinine Ratio Ur 10.7 ug/mg cr (<30)
== END 2023-09-17 15:11 | disposition home or self-care (01) ==
LOC: HO.HHCL 15:10
PROVIDERS: Visit Provider Nurse Practitioner Primary Care
DX: E78.2 Mixed hyperlipidemia (principal); R79.9 Abnormal finding of blood chemistry, unspecified; R79.89 Other specified abnormal findings of blood chemistry
CPT/HCPCS: 36415; 80048; 82043; 82570; 83036

== ENCOUNTER 2023-12-10 12:01 | Outpatient (REF) | payer MEDICARE, MEDICAID, SELFPAY | END 2023-12-10 12:02 | disposition home or self-care (01) | LOC: HO.SH 12:01 | PROVIDERS: Visit Provider Nurse Practitioner Primary Care | DX: Z01.118 Encounter for examination of ears and hearing with other abnormal findings (principal); H90.42 Sensorineural hearing loss, unilateral, left ear, with unrestricted hearing on the contralateral side | CPT/HCPCS: 92557; 92567 ==

== ENCOUNTER 2024-04-29 00:18 | Emergency (ER) | payer MEDICARE, MEDICAID, SELFPAY ==
--- NOTE | ~2024-04-29 | XR_ITS ---
EXAMINATION: XR CHEST CLINICAL INFORMATION: cough COMPARISON: November 19, 2022 TECHNIQUE: Frontal view of the chest was obtained. FINDINGS: The cardiomediastinal silhouette is stable. A single chamber pacer lead is in place. There is no focal lung consolidation or pleural effusions. The bony structures and the soft tissues are unremarkable. XR/XR chest 1V IMPRESSION: No acute disease. Electronically signed by: Tien Willams MD 04/29/2024 03:10 AM EZEQUIEL
--- NOTE | 2024-04-29 00:35 | ECG_ITS ---
Test Reason : dizzy Blood Pressure : / mmHG Vent. Rate : 093 BPM Atrial Rate : 086 BPM P-R Int : 000 ms QRS Dur : 118 ms QT Int : 392 ms P-R-T Axes : 000 -26 051 degrees QTc Int : 487 ms Atrial fibrillation Non-specific intra-ventricular conduction delay Prolonged QT Abnormal ECG When compared with ECG of 20-NOV-2022 02:41, rhythm change Referred By: Generic ED Physician Electronically Signed By:BOB MONAHAN
[2024-04-29 00:38] VITALS: BP 144/84; BP 156/86; PULSE 101; PULSE 121; RESP 13; TEMP 36.5; O2SAT 97; O2SAT 98; BMI 30.5
[2024-04-29 00:43] VITALS: BP 114/84; PULSE 94; RESP 18; O2SAT 98
--- NOTE | 2024-04-29 00:55 | ED.DIZZY ---
HPI - Dizziness General Chief Complaint: Dizziness Stated Complaint: Dizziness Time Seen by Provider: 04/29/24 00:49 Source: patient Mode of arrival: EMS Limitations: no limitations History of Present Illness ED Provider: HPI Narrative: 72-year-old male with pertinent history of CAD, congestive heart failure unspecified ejection fraction, COPD not on home oxygen, essential hypertension, BJ, AFib on anticoagulation status post AICD placed in 2008 comes here as all of a sudden patient is started feeling foggy feeling and dizzy patient does have history of vertigo in the past but this time he felt little different no focal weakness no significant headache no nausea vomiting was feeling heart slightly beating in range of 100 Related Data Home Medications ?Medication ?Instructions ?Recorded ?Confirmed carvedilol 12.5 mg tablet 12.5 mg PO BID 11/20/22 11/20/22 cholecalciferol (vitamin D3) 25 25 mcg PO DAILY 11/20/22 11/20/22 mcg (1,000 unit) tablet cyanocobalamin (vitamin B-12) 1,000 mcg PO DAILY 11/20/22 11/20/22 1,000 mcg tablet ezetimibe 10 mg tablet 10 mg PO DAILY 11/20/22 11/20/22 fluticasone furoate 200 1 ea inhalation DAILY 11/20/22 11/20/22 mcg-vilanterol 25 mcg/dose inhalation powder (Breo Ellipta) ipratropium 20 mcg-albuterol 100 1 puff inhalation Q6H PRN 11/20/22 11/20/22 mcg/actuation mist for inhalation Shortness Of Breath (Combivent Respimat) lisinopril 2.5 mg tablet 2.5 mg PO BID 11/20/22 11/20/22 amiodarone 200 mg tablet 200 mg PO DAILY 05/03/23 apixaban 5 mg tablet (Eliquis) 5 mg PO BID 05/03/23 clopidogrel 75 mg tablet 75 mg PO DAILY 05/03/23 furosemide 40 mg tablet 40 mg PO BID 05/03/23 rosuvastatin 20 mg tablet 20 mg PO BEDTIME 05/03/23 Previous Rx's ?Medication ?Instructions ?Recorded acetaminophen 325 mg capsule 650 mg (2 x 325 mg) PO Q4H PRN 08/25/23 (Tylenol) pain #30 caps bisacodyl 5 mg tablet,delayed 20 mg (4 x 5 mg) PO ONCE PRN 09/07/23 release (Dulcolax (bisacodyl)) colonoscopy prep 1 day #4 tabs polyethylene glycol 3350 17 238 g PO ONCE PRN laxative effect 09/07/23 gram/dose oral powder (Miralax) 1 day #238 grams meclizine 25 mg tablet 25 mg PO TID PRN dizziness #20 tabs 04/29/24 Allergies Allergy/AdvReac Type Severity Reaction Status Date / Time No Known Allergies Allergy Verified 04/29/24 00:42 Review of Systems Review of Systems: Yes all other systems are reviewed and are negative [facility] Past Medical History Medical History ICD (implantable cardioverter-defibrillator) in place (~2020) CAD (coronary artery disease) Ischemic cardiomyopathy CHF (congestive heart failure) Afib Chronic anticoagulation Hypertension Hyperlipidemia BJ (obstructive sleep apnea) COPD (chronic obstructive pulmonary disease) Personal history of nicotine dependence Surgical History History of heart artery stent History of cardiac cath History of right inguinal hernia repair History of implantable cardiac defibrillator (ICD) Social History Social History Alcohol intake: former Comment: [facility] Patient Tobacco Use Status: Former Tobacco user Years Smoked: onset 13yo, 1ppd x 55yrs, 50pyh, quit 2018 Smoked in Last 30 Days: No Use of substances other than those prescribed or required for medical reasons: No Advance Directives: No Advance Directives Information Provided: Yes Do you have a plan to hurt others: No Plan service: No Current occupational status: unemployed Physical Exam Vital Signs: Vital Signs: Last Vital Signs Temp 97.0 F 04/29/24 04:40 Pulse 64 04/29/24 04:40 Resp 14 04/29/24 04:40 BP 126/69 04/29/24 04:40 Pulse Ox 96 04/29/24 04:40 O2 Del Method Room Air 04/29/24 04:05 BMI result Body Mass Index 30.5 Appearance: Alert. Oriented X3. No acute distress. Eyes: PERRLA, No Nystagmus ENT: Pharynx normal. Oral Mucosa moist Neck: Normal inspection. Neck supple. CVS: Normal heart rate and rhythm. Pulses normal. Respiratory: No respiratory distress. Equal air entry bilateral, no wheezing/rales/rhonchi Abdomen: Soft and nontender. Bowel sounds are present, no mass palpable, no CVA tenderness Skin: Skin warm and dry. Normal skin color. Normal skin turgor. Extremities: No lower extremity edema. No calf tenderness Neuro: Oriented X 3. No motor deficit. No sensory deficit.No cerebellar signs , cranial nerves II-XII intact Medical Decision Making Medical Decision Making [facility] Narrative: Patient's history of vertigo comes here for nonspecific dizziness which improved during stay in the ER workup essentially negative patient was ambulatory, without any ataxia or dizziness prescribed meclizine vitals stable Lab Data [facility] Lab Attestation statement: I reviewed the patient's lab results. 04/29/24 00:52 04/29/24 00:52 Labs: Lab Results 04/29/24 04/29/24 Range/Units 00:52 01:10 WBC 6.8 (4.8-10.8) X10*3/uL RBC 4.91 (4.60-5.80) X10*6/uL Hgb 15.3 (14.0-18.0) g/dl Hct 45.7 (42.0-52.0) % MCV 93.1 (80.0-98.0) fL MCH 31.2 (27.0-33.0) pg MCHC 33.5 (31.0-36.0) g/dl RDW 14.1 (11.0-16.0) % Plt Count 188 D (160-400) X10*3/uL MPV 9.5 (9.4-12.4) fL Immature Gran % (Auto) 0.3 (0.0-0.4) % Neut % (Auto) 53.4 (45-73) % Lymph % (Auto) 35.0 (20-40) % [place] % (Auto) 9.3 (2-11) % Eos % (Auto) 1.6 (0-4) % Baso % (Auto) 0.4 (0-2) % Lymph # (Auto) 2.4 (1.2-4.9) X10*3/uL [place] # (Auto) 0.6 (0.1-1.2) X10*3/uL Eos # (Auto) 0.1 (0.0-0.4) X10*3/uL Baso # (Auto) 0.0 (0.0-0.2) X10*3/uL Abs Immat Gran (auto) 0.02 (0.00-0.03) X10*3/uL Absolute Neuts (auto) 3.6 (2.0-8.3) x10*3/uL Absolute Nucleated RBC 0.000 (0.0-0.012) X10*3/uL Nucleated RBC % (auto) 0.0 (0.0-0.2) /100WBC Sodium 140 (135-145) mmol/L Potassium 3.7 (3.3-5.1) mmol/L Chloride 107 (96-108) mmol/L Carbon Dioxide 21 L (22-29) mmol/L Anion Gap 16 (12-20) BUN 18 H (9-16) mg/dL Creatinine 1.38 (0.5-1.4) mg/dL Estim Creat Clear Calc 49.7 Estimated GFR 50 Random Glucose 101 (60-115) mg/dL Calcium 9.2 (8.4-10.2) mg/dL Total Bilirubin 0.4 (0.0-1.0) mg/dL AST 29 (5-37) U/L ALT 21 (0-40) U/L Alkaline Phosphatase 89 (39-117) U/L Troponin I High Sens 18.0 D (<3.5-35.0) ng/L B-Natriuretic Peptide 283 H (<100) pg/mL Total Protein 6.6 (6.5-8.0) g/dL Albumin 4.0 (3.5-5.0) g/dL Influenza Type A (PCR) NEGATIVE (Negative) Influenza Type B (PCR) NEGATIVE (Negative) RSV RNA Qual (PCR) NEGATIVE (Negative) SARS-CoV-2 RNA (RT-PCR) NEGATIVE (Negative) Independent Interpretation I performed an independent interpretation of an: EKG Interpretation: Sinus rhythm with ventricular rate of 93 beats per minute frequent PACs no acute ST-T changes no acute ischemia Discharge Plan Discharge Clinical Impression: Benign paroxysmal positional vertigo Patient Disposition: Home, Self-Care Instructions: Benign Paroxysmal Positional Vertigo (ED) Additional Instructions: Care and cautions as advised Take meclizine 1 tablet every 8 hours as needed for dizziness Follow the PCP if not better Prescriptions: New meclizine 25 mg tablet 25 mg PO TID PRN (Reason: dizziness) Qty: 20 0RF No Action carvedilol 12.5 mg tablet 12.5 mg PO BID lisinopril 2.5 mg tablet 2.5 mg PO BID ezetimibe 10 mg tablet 10 mg PO DAILY fluticasone furoate-vilanterol [Breo Ellipta] 200-25 mcg/dose blister with device 1 ea inhalation DAILY Combivent Respimat 20-100 mcg/actuation mist 1 puff INHALATION Q6H PRN (Reason: Shortness Of Breath) cyanocobalamin (vitamin B-12) 1,000 mcg Tablet 1,000 mcg PO DAILY cholecalciferol (vitamin D3) 25 mcg (1,000 unit) Tablet 25 mcg PO DAILY acetaminophen [Tylenol] 325 mg capsule 650 mg PO Q4H PRN (Reason: pain) Qty: 30 0RF bisacodyl [Dulcolax (bisacodyl)] 5 mg tablet,delayed release (DR/EC) 20 mg PO ONCE PRN (Reason: colonoscopy prep) 1 Days Qty: 4 0RF Rx Instructions: Day before procedure @ 12 noon Take 4 tablets by mouth followed by large glass of water polyethylene glycol 3350 [Miralax] 17 gram/dose powder 238 g PO ONCE PRN (Reason: laxative effect) 1 Days Qty: 238 0RF Rx Instructions: Take as directed by mouth the day before your procedure. Eliquis 5 mg tablet 5 mg PO BID furosemide 40 mg tablet 40 mg PO BID amiodarone 200 mg tablet 200 mg PO DAILY rosuvastatin 20 mg tablet 20 mg PO BEDTIME clopidogrel 75 mg tablet 75 mg PO DAILY Interventions: ED Discharge Assessment Last Done: 04/29/24 04:40 Discharge Date/Time: 04/29/24 04:45 Print Language: Kazakh
[2024-04-29 00:57] LABS: Basophils Percent Auto 0.4 % (0-2); Eosinophils Absolute Auto 0.1 X10*3/uL (0.0-0.4); Eosinophils Percent Auto 1.6 % (0-4); Hematocrit 45.7 % (42.0-52.0); Hemoglobin 15.3 g/dl (14.0-18.0); Imm Gran Abs Auto 0.02 X10*3/uL (0.00-0.03); Imm Gran Pct Auto 0.3 % (0.0-0.4); Lymphocytes Absolute Auto 2.4 X10*3/uL (1.2-4.9); Mean Corpuscular HGB Conc 33.5 g/dl (31.0-36.0); Mean Corpuscular Hemoglobin 31.2 pg (27.0-33.0); Mean Corpuscular Volume 93.1 fL (80.0-98.0); Mean Platelet Volume 9.5 fL (9.4-12.4); Monocytes Absolute Auto 0.6 X10*3/uL (0.1-1.2); Monocytes Percent Auto 9.3 % (2-11); Neutrophils Absolute Auto 3.6 x10*3/uL (2.0-8.3); Neutrophils Percent Auto 53.4 % (45-73); Platelet Count 188 X10*3/uL (160-400); Red Blood Count 4.91 X10*6/uL (4.60-5.80); Red Cell Distribution Width 14.1 % (11.0-16.0); White Blood Count 6.8 X10*3/uL (4.8-10.8)
[2024-04-29 00:58] LABS: MANUAL DIFF FLAG NO
[2024-04-29 01:19] LABS: Alanine Aminotransferase 21 U/L (0-40); Alkaline Phosphatase 89 U/L (39-117); Anion Gap 16 (12-20); Aspartate Amino Transferase 29 U/L (5-37); Bilirubin Total 0.4 mg/dL (0.0-1.0); Blood Urea Nitrogen 18 mg/dL (9-16); Calcium 9.2 mg/dL (8.4-10.2); Carbon Dioxide 21 mmol/L (22-29); Chloride 107 mmol/L (96-108); Creatinine Clr Calc Pharmacy 49.7; Estimated Glomerular Filt Rate 50; Glucose Random 101 mg/dL (60-115); Potassium 3.7 mmol/L (3.3-5.1); Sodium 140 mmol/L (135-145); Total Protein 6.6 g/dL (6.5-8.0)
[2024-04-29 01:46] LABS: B Type Natriuretic Peptide 283 pg/mL (<100)
[2024-04-29 01:50] LABS: Influenza A PCR NEGATIVE (Negative); Influenza B PCR NEGATIVE (Negative); Resp Syncy Virus RNA Qual PCR NEGATIVE (Negative); SARS COV2 PCR INHOUSE NEGATIVE (Negative)
[2024-04-29 02:16] VITALS: BP 123/64; PULSE 69; RESP 14; TEMP 36.2; O2SAT 96
[2024-04-29 04:05] VITALS: BP 126/69; PULSE 64; RESP 14; O2SAT 96
[2024-04-29 04:40] VITALS: BP 126/69; PULSE 64; RESP 14; TEMP 36.1; O2SAT 96
--- NOTE | 2024-04-29 04:41 | PC.NURSE ---
this rn assumed care of pt @ 315. pt a&o ambulatory denies dizziness. iv removed at discharge
== END 2024-04-29 04:45 | disposition home or self-care (01) ==
PROVIDERS: Emergency Provider Internal Medicine
DX: H81.10 Benign paroxysmal vertigo, unspecified ear (principal); Z03.818 Encounter for observation for suspected exposure to other biological agents ruled out; I11.0 Hypertensive heart disease with heart failure; I50.9 Heart failure, unspecified; E78.5 Hyperlipidemia, unspecified; I48.91 Unspecified atrial fibrillation; J44.9 Chronic obstructive pulmonary disease, unspecified; Z87.891 Personal history of nicotine dependence; Z95.810 Presence of automatic (implantable) cardiac defibrillator; Z79.01 Long term (current) use of anticoagulants; Z79.02 Long term (current) use of antithrombotics/antiplatelets; Z79.899 Other long term (current) drug therapy
CPT/HCPCS: 0241U; 36415; 71045; 80053; 83880; 84484; 85025; 93005; 99283; 99285

== ENCOUNTER → 2024-04-29 00:35 | Outpatient (BNV) | payer MEDICARE, MEDICAID, SELFPAY | PROVIDERS: Emergency Provider Internal Medicine; Visit Provider Internal Medicine | DX: I48.91 Unspecified atrial fibrillation (principal) | CPT/HCPCS: 93010 ==

== ENCOUNTER 2024-05-27 01:56 | Emergency (ER) | payer MEDICARE, MEDICAID, SELFPAY ==
--- NOTE | ~2024-05-27 | XR_ITS ---
CLINICAL HISTORY: sob Chest X-ray, 1 View COMPARISON: CR/SR - XR CHEST 1V - 04/29/24 00:59 EST FINDINGS: No consolidation. Mild atelectasis. No pleural effusion. No pneumothorax. Stable cardiomegaly. No acute fracture. Elevation of the right hemidiaphragm. Left-sided AICD in place obscuring a portion of the study. IMPRESSION: No acute findings. Nonemergent/incidental findings above. This document has been electronically signed by: Lucien Saunders MD on 05/27/2024 03:40:46
--- NOTE | 2024-05-27 01:58 | ECG_ITS ---
Test Reason : DYSPNEA Blood Pressure : / mmHG Vent. Rate : 097 BPM Atrial Rate : 256 BPM P-R Int : 000 ms QRS Dur : 114 ms QT Int : 380 ms P-R-T Axes : 000 -14 074 degrees QTc Int : 482 ms Atrial flutter with variable A-V block Incomplete left bundle branch block Minimal voltage criteria for LVH, may be normal variant ( [place] product ) Abnormal ECG When compared with ECG of 29-APR-2024 00:36, Atrial flutter has replaced Atrial fibrillation Referred By: Generic ED Physician Electronically Signed By:Al Miller
[2024-05-27 01:59] VITALS: BP 144/91; BP 150/70; PULSE 109; PULSE 130; RESP 22; TEMP 36.9; O2SAT 97; O2SAT 99; BMI 31.2
[2024-05-27 02:01] VITALS: BP 144/91; PULSE 117; RESP 20; TEMP 36.9; O2SAT 97
[2024-05-27 02:30] LABS: MANUAL DIFF FLAG NO
[2024-05-27 02:31] LABS: Basophils Percent Auto 0.5 % (0-2); Eosinophils Absolute Auto 0.1 X10*3/uL (0.0-0.4); Eosinophils Percent Auto 1.3 % (0-4); Hematocrit 45.3 % (42.0-52.0); Hemoglobin 15.5 g/dl (14.0-18.0); Imm Gran Abs Auto 0.03 X10*3/uL (0.00-0.03); Imm Gran Pct Auto 0.4 % (0.0-0.4); Lymphocytes Absolute Auto 2.2 X10*3/uL (1.2-4.9); Lymphocytes Percent Auto 28.9 % (20-40); Mean Corpuscular HGB Conc 34.2 g/dl (31.0-36.0); Mean Corpuscular Hemoglobin 31.8 pg (27.0-33.0); Monocytes Absolute Auto 0.5 X10*3/uL (0.1-1.2); Monocytes Percent Auto 6.9 % (2-11); Neutrophils Absolute Auto 4.8 x10*3/uL (2.0-8.3); Platelet Count 189 X10*3/uL (160-400); Red Blood Count 4.87 X10*6/uL (4.60-5.80); Red Cell Distribution Width 13.9 % (11.0-16.0); White Blood Count 7.7 X10*3/uL (4.8-10.8)
[2024-05-27 02:48] LABS: Anion Gap 12 (12-20); Blood Urea Nitrogen 12 mg/dL (9-16); Calcium 9.2 mg/dL (8.4-10.2); Carbon Dioxide 22 mmol/L (22-29); Chloride 111 mmol/L (96-108); Creatinine Clr Calc Pharmacy 52.2; Estimated Glomerular Filt Rate 53; Glucose Random 105 mg/dL (60-115); Sodium 141 mmol/L (135-145)
[2024-05-27 02:56] LABS: Troponin-I High Sensitivity 15.3 ng/L (<3.5-35.0)
--- NOTE | 2024-05-27 02:57 | PC.NURSE ---
dr sharma made aware of pt in aflutter. per md pt rate controlled no new orders at this time pt awaiting to be seen by
[2024-05-27 03:14] LABS: Influenza A PCR NEGATIVE (Negative); Influenza B PCR NEGATIVE (Negative); Resp Syncy Virus RNA Qual PCR NEGATIVE (Negative); SARS COV2 PCR INHOUSE NEGATIVE (Negative)
[2024-05-27 04:00] VITALS: BP 118/80; PULSE 98; RESP 18; TEMP 36.9; O2SAT 100
--- NOTE | 2024-05-27 05:56 | PC.NURSE ---
this rn made dr sharma aware of 15.[address] edith talley to order repeat troponin. at this time provider has no yet picked up pt
[2024-05-27 06:00] VITALS: BP 114/86; PULSE 87; RESP 16; TEMP 37; O2SAT 96
--- NOTE | 2024-05-27 06:51 | ED.GENADULT ---
HPI - General Adult General Chief complaint: Dyspnea Stated complaint: SOB x 2days A flutter Time Seen by Provider: 05/27/24 06:00 Source: patient Mode of arrival: EMS Limitations: no limitations History of Present Illness ED Provider: Lena Rose NP HPI narrative: Patient Is a 74-year-old male who presents emergency department via EMS for evaluation. He is coming in [facility] where he is currently staying. He admits that he has recently moved and it has ?thrown off his routine?. His diet has changed drastically and he has been consuming coffee and tea caffeine which she did not typically previously. He states that over the past 2-3 days he has been experiencing a cough and congestion. Last night he felt like he was ?having an attack? referring to an exacerbation of his COPD that he typically experience while in the cold. He states he did have a heat or running in the motel room, in the room was not particularly cold. Admits to some dyspnea on exertion. States that the tightness in his chest while trying to take deep breaths has resolved at this time. He denies having any chest pain. States he has been compliant with all of his medications. Denies orthopnea, PND. Denies identifiable exacerbating factors. Denies dyspnea on exertion, orthopnea, PND. Denies trauma, fevers, chills, sore throat, difficulty swallowing, neck pain, chest pain, palpitations, nausea, vomiting, abdominal pain, numbness or tingling of the extremities, recent lower extremity pain or swelling. Denies alcohol use, recreational drugs, or smoking tobacco. Related Data Home Medications ?Medication ?Instructions ?Recorded ?Confirmed carvedilol 12.5 mg tablet 12.5 mg PO BID 11/20/22 11/20/22 cholecalciferol (vitamin D3) 25 25 mcg PO DAILY 11/20/22 11/20/22 mcg (1,000 unit) tablet cyanocobalamin (vitamin B-12) 1,000 mcg PO DAILY 11/20/22 11/20/22 1,000 mcg tablet ezetimibe 10 mg tablet 10 mg PO DAILY 11/20/22 11/20/22 fluticasone furoate 200 1 ea inhalation DAILY 11/20/22 11/20/22 mcg-vilanterol 25 mcg/dose inhalation powder (Breo Ellipta) ipratropium 20 mcg-albuterol 100 1 puff inhalation Q6H PRN 11/20/22 11/20/22 mcg/actuation mist for inhalation Shortness Of Breath (Combivent Respimat) lisinopril 2.5 mg tablet 2.5 mg PO BID 11/20/22 11/20/22 amiodarone 200 mg tablet 200 mg PO DAILY 05/03/23 apixaban 5 mg tablet (Eliquis) 5 mg PO BID 05/03/23 clopidogrel 75 mg tablet 75 mg PO DAILY 05/03/23 furosemide 40 mg tablet 40 mg PO BID 05/03/23 rosuvastatin 20 mg tablet 20 mg PO BEDTIME 05/03/23 Previous Rx's ?Medication ?Instructions ?Recorded acetaminophen 325 mg capsule 650 mg (2 x 325 mg) PO Q4H PRN 08/25/23 (Tylenol) pain #30 caps bisacodyl 5 mg tablet,delayed 20 mg (4 x 5 mg) PO ONCE PRN 09/07/23 release (Dulcolax (bisacodyl)) colonoscopy prep 1 day #4 tabs polyethylene glycol 3350 17 238 g PO ONCE PRN laxative effect 09/07/23 gram/dose oral powder (Miralax) 1 day #238 grams meclizine 25 mg tablet 25 mg PO TID PRN dizziness #20 tabs 04/29/24 Allergies Allergy/AdvReac Type Severity Reaction Status Date / Time No Known Allergies Allergy Verified 05/27/24 02:08 Review of Systems Review of Systems: Yes all other systems are reviewed and are negative PMFSH Past Medical History Attestation statement: The following information was validated with the patient. Source: old records reviewed Medical History ICD (implantable cardioverter-defibrillator) in place (~2020) CAD (coronary artery disease) Ischemic cardiomyopathy CHF (congestive heart failure) Afib Chronic anticoagulation Hypertension Hyperlipidemia BJ (obstructive sleep apnea) COPD (chronic obstructive pulmonary disease) Personal history of nicotine dependence Surgical History History of heart artery stent History of cardiac cath History of right inguinal hernia repair History of implantable cardiac defibrillator (ICD) Social History Social History Alcohol intake: former Comment: [facility] Patient Tobacco Use Status: Former Tobacco user Years Smoked: onset 13yo, 1ppd x 55yrs, 50pyh, quit 2018 Smoked in Last 30 Days: No Use of substances other than those prescribed or required for medical reasons: No Advance Directives: No Advance Directives Information Provided: Yes Do you have a plan to hurt others: No Plan service: No Current occupational status: unemployed Physical Exam ED Vital Signs: Vital Signs - 24 hr 05/27/24 01:59 05/27/24 02:01 05/27/24 04:00 Temperature 98.5 F 98.5 F 98.5 F Pulse Rate 109 H 117 H 98 Respiratory Rate 22 H 20 18 Blood Pressure 144/91 H 144/91 H 118/80 Pulse Oximetry 97 97 100 Oxygen Delivery Method Room Air Room Air Room Air 05/27/24 06:00 05/27/24 07:13 Temperature 98.6 F Pulse Rate 87 85 Respiratory Rate 16 15 Blood Pressure 114/86 127/76 Pulse Oximetry 96 98 Oxygen Delivery Method Room Air Room Air BMI result Body Mass Index 31.2 Appearance: Alert.?Oriented to person, place and time. No acute distress.?Normal affect. Eyes: Pupils equal, round and reactive to light.? ENT: Pharynx normal.?? Neck: Normal inspection.? Neck supple.?? CVS: Heart sounds normal. Normal heart rate and rhythm.? Pulses normal.?? Respiratory: No respiratory distress.? Lung sounds clear to auscultation bilaterally?? Abdomen: Soft and non-tender. Normoactive bowel sounds. Skin: Skin warm and dry.? Normal skin color.? Extremities: No lower extremity edema.? No calf ttp? Neuro: Moves all extremities spontaneously. Sensation intact bilaterally. No focal neuro deficits. Ambulates with normal steady gait. Medical Decision Making Medical Decision Making MDM Narrative: Patient is a 74-year-old male with past medical history of [employer] ICD, CAD, cardiac catheterization with 3-4 stents, ischemic cardiomyopathy, CHF, atrial fibrillation on chronic anticoagulation with Eliquis, hypertension, hyperlipidemia, BJ, COPD who presents emergency department for evaluation of shortness of breath and cough over the past 2 days with an exacerbation of symptoms last night including chest tightness difficulty breathing that resolved once arriving to the emergency department by his account. He reports no intervention by EMS he arrived hours prior. Overall well-appearing, nontoxic, afebrile, no respiratory distress. No rash or lesions, urticaria, or evidence of angioedema to suggest allergic reaction/anaphylaxis. No swallowing difficulties to suggest aspiration. No associated chest pain, lower extremity redness pain or swelling, history of VTE/malignancy. High sensitive troponin was obtained x2 and are negative, EKG revealing atrial flutter with QTC 477, no acute ischemic changes reviewed by my attending Dr. Curran. Not appear consistent with CHF. No recent trauma or injury, no tracheal deviation, unlikely tension pneumothorax. No recent URI symptoms to suggest viral illness, or pneumonia. No history of diabetes, unlikely DKA. No acute bleeding or known anemia, no associated dizziness fatigue or chest pain to suggest acute anemia. Patient ultimately with a brief episode of chest tightness and feeling anxious which resolved upon arrival to emergency department. At this time stable for discharge home with strict return precautions. No respiratory distress, no hypoxia, tachycardia, does not appear consistent with a she had COPD exacerbation. Differential Diagnosis Differential Diagnoses: The differential diagnosis associated with the presentation includes (See narrative above) Admission/Observation Consideration of admission/observation: Escalation of care including admission/observation considered Lab Data MDM Lab Attestation statement: I reviewed the patient's lab results. CBC is without leukocytosis anemia or thrombocytopenia. No significant electrolyte derangement. No KAREY. Viral serologies are negative. Initial high sensitive troponin 15.3, delta troponin __. 05/27/24 02:23 05/27/24 02:23 Labs: Lab Results 05/27/24 05/27/24 05/27/24 Range/Units 02:23 02:32 06:18 WBC 7.7 (4.8-10.8) X10*3/uL RBC 4.87 (4.60-5.80) X10*6/uL Hgb 15.5 (14.0-18.0) g/dl Hct 45.3 (42.0-52.0) % MCV 93.0 (80.0-98.0) fL MCH 31.8 (27.0-33.0) pg MCHC 34.2 (31.0-36.0) g/dl RDW 13.9 (11.0-16.0) % Plt Count 189 (160-400) X10*3/uL MPV 9.0 L (9.4-12.4) fL Immature Gran % (Auto) 0.4 (0.0-0.4) % Neut % (Auto) 62.0 (45-73) % Lymph % (Auto) 28.9 (20-40) % [place] % (Auto) 6.9 (2-11) % Eos % (Auto) 1.3 (0-4) % Baso % (Auto) 0.5 (0-2) % Lymph # (Auto) 2.2 (1.2-4.9) X10*3/uL [place] # (Auto) 0.5 (0.1-1.2) X10*3/uL Eos # (Auto) 0.1 (0.0-0.4) X10*3/uL Baso # (Auto) 0.0 (0.0-0.2) X10*3/uL Abs Immat Gran (auto) 0.03 (0.00-0.03) X10*3/uL Absolute Neuts (auto) 4.8 (2.0-8.3) x10*3/uL Absolute Nucleated RBC 0.000 (0.0-0.012) X10*3/uL Nucleated RBC % (auto) 0.0 (0.0-0.2) /100WBC Sodium 141 (135-145) mmol/L Potassium 4.0 (3.3-5.1) mmol/L Chloride 111 H (96-108) mmol/L Carbon Dioxide 22 (22-29) mmol/L Anion Gap 12 (12-20) BUN 12 (9-16) mg/dL Creatinine 1.33 (0.5-1.4) mg/dL Estim Creat Clear Calc 52.2 Estimated GFR 53 Random Glucose 105 (60-115) mg/dL Calcium 9.2 (8.4-10.2) mg/dL Troponin I High Sens 15.3 14.6 (<3.5-35.0) ng/L C-Reactive Protein 0.38 (< or = 0.50) mg/dL Influenza Type A (PCR) NEGATIVE (Negative) Influenza Type B (PCR) NEGATIVE (Negative) RSV RNA Qual (PCR) NEGATIVE (Negative) SARS-CoV-2 RNA (RT-PCR) NEGATIVE (Negative) Independent Interpretation I performed an independent interpretation of an: EKG and Plain X-Ray (No consolidation or infiltrate) Interpretation: Rate: 97 Rhythm:? Atrial flutter Normal QRS complex.? qTC:482 prior studies:? 04/29/2024 The study has been interpreted contemporaneously by me. Radiology Impression Discussion of test interpretation with radiology: I have reviewed the radiologist's reading. Radiologist Impression: FINDINGS: No consolidation. Mild atelectasis. No pleural effusion. No pneumothorax. Stable cardiomegaly. No acute fracture. Elevation of the right hemidiaphragm. Left-sided AICD in place obscuring a portion of the study. IMPRESSION: No acute findings. Nonemergent/incidental findings above. Independent Historian Clinical information obtained from an independent historian. History obtained from or confirmed by: EMS External Record Review External record reviewed: Outpatient record Discharge Plan Discharge Clinical Impression: COPD (chronic obstructive pulmonary disease) Patient Disposition: Home, Self-Care Instructions: COPD (Chronic Obstructive Pulmonary Disease) (ED) Additional Instructions: Workup in the emergency department today is very reassuring. Symptoms at this time not appear consistent with a heart attack, pneumonia, no evidence of an acute exacerbation of your COPD that would warrant steroids or antibiotics at this time. Please continue taking all of your medications as prescribed. Follow-up with your primary care doctor. Return to emergency department any new or worsening symptoms or concerns. Prescriptions: No Action carvedilol 12.5 mg tablet 12.5 mg PO BID lisinopril 2.5 mg tablet 2.5 mg PO BID ezetimibe 10 mg tablet 10 mg PO DAILY fluticasone furoate-vilanterol [Breo Ellipta] 200-25 mcg/dose blister with device 1 ea inhalation DAILY Combivent Respimat 20-100 mcg/actuation mist 1 puff INHALATION Q6H PRN (Reason: Shortness Of Breath) cyanocobalamin (vitamin B-12) 1,000 mcg Tablet 1,000 mcg PO DAILY cholecalciferol (vitamin D3) 25 mcg (1,000 unit) Tablet 25 mcg PO DAILY meclizine 25 mg tablet 25 mg PO TID PRN (Reason: dizziness) Qty: 20 0RF acetaminophen [Tylenol] 325 mg capsule 650 mg PO Q4H PRN (Reason: pain) Qty: 30 0RF bisacodyl [Dulcolax (bisacodyl)] 5 mg tablet,delayed release (DR/EC) 20 mg PO ONCE PRN (Reason: colonoscopy prep) 1 Days Qty: 4 0RF Rx Instructions: Day before procedure @ 12 noon Take 4 tablets by mouth followed by large glass of water polyethylene glycol 3350 [Miralax] 17 gram/dose powder 238 g PO ONCE PRN (Reason: laxative effect) 1 Days Qty: 238 0RF Rx Instructions: Take as directed by mouth the day before your procedure. Eliquis 5 mg tablet 5 mg PO BID furosemide 40 mg tablet 40 mg PO BID amiodarone 200 mg tablet 200 mg PO DAILY rosuvastatin 20 mg tablet 20 mg PO BEDTIME clopidogrel 75 mg tablet 75 mg PO DAILY Referrals: Physician,Unknown J [Primary Care Provider] - Print Language: Belarusian
[2024-05-27 07:03] LABS: Troponin-I High Sensitivity 14.6 ng/L (<3.5-35.0)
[2024-05-27 07:13] VITALS: BP 127/76; PULSE 85; RESP 15; O2SAT 98
[2024-05-27 08:11] LABS: C Reactive Protein 0.38 mg/dL (< or = 0.50)
--- NOTE | 2024-05-27 09:16 | ECG_ITS ---
Test Reason : CHECK QT Blood Pressure : / mmHG Vent. Rate : 094 BPM Atrial Rate : 252 BPM P-R Int : 000 ms QRS Dur : 120 ms QT Int : 382 ms P-R-T Axes : 000 011 072 degrees QTc Int : 477 ms Atrial flutter with variable A-V block Non-specific intra-ventricular conduction delay Minimal voltage criteria for LVH, may be normal variant ( [place] product ) Abnormal ECG When compared with ECG of 27-MAY-2024 02:05, No significant change was found Referred By: Lena Rose Electronically Signed By:Al Miller
[2024-05-27 10:01] VITALS: BP 129/79; PULSE 81; RESP 16; TEMP 36.7; O2SAT 98
== END 2024-05-27 10:02 | disposition home or self-care (01) ==
PROVIDERS: Emergency Medicine; Nurse Practitioner Family; Emergency Provider Emergency Medicine
DX: J44.9 Chronic obstructive pulmonary disease, unspecified (principal); R05.9 Cough, unspecified; Z03.818 Encounter for observation for suspected exposure to other biological agents ruled out; I10 Essential (primary) hypertension; E78.5 Hyperlipidemia, unspecified; I48.91 Unspecified atrial fibrillation; Z87.891 Personal history of nicotine dependence; Z79.02 Long term (current) use of antithrombotics/antiplatelets; Z79.01 Long term (current) use of anticoagulants; Z79.899 Other long term (current) drug therapy
CPT/HCPCS: 0241U; 36415; 71045; 80048; 84484; 85025; 86140; 93005; 99284; 99285

== ENCOUNTER → 2024-05-27 01:58 | Outpatient (BNV) | payer MEDICARE, MEDICAID, SELFPAY | PROVIDERS: Emergency Provider Emergency Medicine; Visit Provider Internal Medicine Cardiovascular Disease | DX: I48.92 Unspecified atrial flutter (principal) | CPT/HCPCS: 93010 ==

== ENCOUNTER → 2024-05-27 02:09 | Outpatient (BNV) | payer MEDICARE, MEDICAID, SELFPAY | PROVIDERS: Visit Provider Radiology Diagnostic Radiology | DX: R06.02 Shortness of breath (principal) | CPT/HCPCS: 71045 ==

== ENCOUNTER 2024-10-12 14:32 | Outpatient (REF) | payer MEDICARE, MEDICAID, SELFPAY ==
--- OUTSIDE RECORDS SUMMARY | 2024-10-12 15:10 | XMS_ITS | Encounter Summary ---
Author Organization [employer] Address [address] 7t [place] [address] Care Team Providers Care Loft Worker Head Name Role Phone Pam Torres Primary Care Provider [phone] Misty Griffin RN Unavailable [phone] Reason for Visit * Reason Comments Med Refill Encounter Details Date Type Department Care Team ([facility] st Contact Info) Description 06/04/2022 Refill [facility] [address] [place] [address] Marta Kendall MD [address] [place] [address] Social History Tobacco Use Types Packs/Day Years Used Date Smoking Tobacco: Never Assessed Sex and Gender Information Value Date Recorded Sex Assigned at Male 03/30/2022 10:20 AM EDT Legal Sex Male 10:20 AM EDT Gender Identity Male 03/30/2022 10:20 AM EDT Sexual Orientation Straight 03/30/2022 10 :20 AM EDT documented as of this encounter Miscellaneous Notes * Telephone Encounter - Ofelia Andres RN - 06/08/2022 2:50 PM EST T/C placed to pt's bridge builder. Was on hold [email or web address]. They stated they do prescribe/manage it and will send a refill. Sending to PCP as FYI * Telephone Encounter - COLETTE Logan - 06/04/2022 5:32 PM EST I received a med refill request for amiodarone, but can you please call pt's bridge builder to confirm whether they are managing this med? Would appreciate their monitoring/management of med and do notwant to duplicate prescriptions. Looking in his chart, both cards and I have sent rosuvastatin refills within days of each other in the last week. Please also call pt to confirm if pt wants all meds sent to [facility], looks like he has transferred some from [facility]. documented in this encounter Plan of Treatment Upcoming Encounters Date Type Department Care Team (Late st Contact Info) Description 10/19/2024 2:00 PM EDT Office Visit [facility] MEDICINE [address] [place] [address] Pam Torres ANP [address] [place] [address] documented as of this encounter Visit Diagnoses Not on filedocumented in this encounter Care Teams Loft Worker Head Relationship Specialty Start Date End Date Pam Torres ANP [address] [place] [address] PCP - General Family Medicine 03/13/22 Misty Griffin RN [address] [place] [address] Manager Of FinanceLeadership Coach 08/30/23 Julianne Barr Community Health Worker Case Management 10/28/23 documented as of this encounter
--- OUTSIDE RECORDS SUMMARY | 2024-10-12 15:10 | XMS_ITS | Encounter Summary ---
Author Organization [facility] Address [address] [place] [address] 7t [place] [address] Care Team Providers Care Macaroni Press Operator Name Role Phone Pam Torres Primary Care Provider [phone] Misty Griffin RN Unavailable [phone] Encounter Details Date Type Department Care Team (Late st Contact Info) Description 05/15/2022 Orders Only [facility]S [address] [place] [address] Vesna Samuel LPN Social History Tobacco Use Types Packs/Day Years Used Date Smoking Tobacco: Never Assessed Sex and Gender Information Value Date Recorded Sex Assigned at Male 03/30/2022 10:20 AM EDT Legal Sex Male 10:20 AM EDT Gender Identity Male 03/30/2022 10:20 AM EDT Sexual Orientation Straight 03/30/2022 10 :20 AM EDT documented as of this encounter Plan of Treatment Upcoming Encounters Date Type Department Care Team (Late st Contact Info) Description 10/19/2024 2:00 PM EDT Office Visit [facility] MEDICINE [address] [place] [address] Pam Torres ANP [address] [place] [address] documented as of this encounter Visit Diagnoses Not on filedocumented in this encounter Care Teams Macaroni Press Operator Relationship Specialty Start Date End Date Pam Torres ANP [address] [place] [address] PCP - General Family Medicine 03/13/22 Misty Griffin, ALLY [address] [place] [address] Technology Training AssociateCco & President 08/30/23 Julianne Barr Community Health Worker Case Management 10/28/23 documented as of this encounter
--- OUTSIDE RECORDS SUMMARY | 2024-10-12 15:10 | XMS_ITS | Encounter Summary ---
Author Organization [facility] Address [address] [place] [address] 7t [place] [address] Care Team Providers Care Veterinary Anatomist Name Role Phone Pam Torres Primary Care Provider Misty Griffin RN Unavailable [phone] Encounter Details Date Type Department Care Team (Late st Contact Info) Description 05/18/2022 Orders Only [facility] [address] [place] [address] Deborah Castellanos LPN Social History Tobacco Use Types Packs/Day [...] Description 10/19/2024 2:00 PM EDT Office Visit [facility] MEDICINE [address] [place] [address] Pam Torres ANP [address] [place] [address] documented as of this encounter Visit Diagnoses Not on filedocumented in this encounter Care Teams Veterinary Anatomist Relationship Specialty Start Date End Date Pam Torres ANP [address] [place] [address] PCP - General Family Medicine 03/13/22 Misty Griffin, ALLY [address] [place] [phone] Tire WorkerDirector Biology 08/30/23 Julianne Barr Community Health Worker Case Management 10/28/23 documented as of this encounter
--- OUTSIDE RECORDS SUMMARY | 2024-10-12 15:10 | XMS_ITS | Clinical Summary ---
Author Organization [facility] Address [address] [place] [address] Phone Care Team Providers Care Nutrition Technician Name Role Phone Faiza, Marta Alexander MD Primary Care Provider U navailable Social History Tobacco Use Types Packs/Day Years Used Date Smoking Tobacco: Never Assessed Sex and Gender Information Value Date Recorded Sex Assigned at Not on file Legal Sex Male 3:02 PM EDT Gender Identity Not on file Sexual Orientation Not on file Plan of Treatment Upcoming Encounters Date Type Department Care Team (Late st Contact Info) Description 01/05/2025 2:45 PM EDT Office Visit [facility] [address] [place] [address] Brain Adler MD [address] [place] [address] Health Maintenance Due Date Last Done Comments Colorectal Cancer Screening: Annual FOBT 1999 Colorectal Cancer Screening: Colonoscopy 1999 Colorectal Cancer Screening: Sigmoidoscopy 1999 Pneumococcal Vaccine: 50+ Years Completed 2 Influenza Vaccine Completed 02/07/2024 Hepatitis B Vaccine Aged Out No longe r eligible based on patient's age to complete this topic Insurance Medicare Care Teams Nutrition Technician Relationship Specialty Start Date End Date Marta Kendall MD [address] [place] [id number] PCP - General Family Medicine 01/17/24
--- OUTSIDE RECORDS SUMMARY | 2024-10-12 15:10 | XMS_ITS | Encounter Summary ---
Author Organization [employer] Address [address] [facility] 7t [place] [address] Care Team Providers Care Sergeant Missile Crewman Name Role Phone Pam Torres Primary Care Provider [phone] Misty Griffin RN Unavailable [phone] Encounter Details Date Type Department Care Team (Late st Contact Info) Description 05/27/2022 Orders Only [facility]EDS [address] [place] [address] Pam Torres ANP [address] [place] [address] Atherosclerosis of coronary artery of nome heart without angina pectoris, unspecified vessel or lesion type (Primary Dx) Social History Tobacco Use Types Packs/Day Years [...] Description 10/19/2024 2:00 PM EDT Office Visit [facility] MEDICINE [address] [place] [address] Pam Torres ANP [address] [place] [address] documented as of this encounter Visit Diagnoses Diagnosis Atherosclerosis of coronary artery of nome heart without angina pectoris, unspecified vessel or lesion type- Primary documented in this encounter Care Teams Sergeant Missile Crewman Relationship Specialty Start Date End Date Pam Torres ANP [address] [place] [address] [place] [address] PCP - General Family Medicine 03/13/22 Misty Griffin RN [address] [place] [address] Snag GrinderChief Building Inspector 08/30/23 Julianne Barr Community Health Worker Case Management 10/28/23 documented as of this encounter
--- OUTSIDE RECORDS SUMMARY | 2024-10-12 15:10 | XMS_ITS | Encounter Summary ---
Author Organization [employer] Address [address] [facility] 7t [place] [address] Care Team Providers Care Tool Programmer Name Role Phone Pam Torres Primary Care Provider [phone] Misty Griffin RN Unavailable [phone] Reason for Visit * Reason Onset Date Comments Medication Question 03/03/2023 Encounter Details Date Type Department Care Team ([facility] st Contact Info) Description 03/03/2023 Telephone [facility] MEDICINE [address] [place] [address] Pam Torres ANP [address] [place] [address] Medication Question Social History Tobacco Use Types Packs/Day Years Used Date Smoking Tobacco: Former Cigarettes Smokeless Tobacco: Never Alcohol Use Standard Drinks/Week Comments Not Currently 0 (1 standard drink = 0.6 oz pur e alcohol) Depression Answer Date Recorded Patient Health Questionnaire-9 Score 0 12/15/2022 Depression Answer Date Recorded Patient Health Questionnaire-2 Score 0 12/15/2022 Sex and Gender Information Value Date Recorded Sex Assigned at Male 03/30/2022 10:20 AM EDT Legal Sex Male 10:20 AM EDT Gender Identity Male 03/30/2022 10:20 AM EDT Sexual Orientation Straight 03/30/2022 10 :20 AM EDT documented as of this encounter Miscellaneous Notes * Telephone Encounter - Jael Whitaker - 03/03/2023 11:50 AM EDT Tc from [facility] pharmacy requesting a call back to discuss if pt should be on both medications apixaban (Eliquis) 5 MG tablet clopidogrel (Plavix) 75 MG tablet documented in this encounter Plan of Treatment Upcoming Encounters Date Type Department Care Team (Late st Contact Info) Description 10/19/2024 2:00 PM EDT Office Visit [facility] MEDICINE [address] [place] [address] Pam Torres ANP [address] [place] [address] documented as of this encounter Visit Diagnoses Not on filedocumented in this encounter Additional Health Concerns Assessment Noted Time PHQ-9 Depression Total Score: 0 12/16/19 23 9:41 AM EDT documented as of this encounter Care Teams Tool Programmer Relationship Specialty Start Date End Date Pam Torres ANP [address] [place] [address] PCP - General Family Medicine 03/13/22 Misty Griffin RN [address] [place] [address] Seamless Tube Mill OperatorHand Rug Cleaner 08/30/23 Julianne Barr Community Health Worker Case Management 10/28/23 documented as of this encounter
--- OUTSIDE RECORDS SUMMARY | 2024-10-12 15:10 | XMS_ITS | Encounter Summary ---
Author Organization [employer] Address [address] 7[address] [place] [address] Care Team Providers Care Subacute Nurse Name Role Phone Pam Torres Primary Care Provider [phone] Misty Griffin RN Unavailable [phone] Encounter Details Date Type Department Care Team (Late st Contact Info) Description 04/01/2023 Orders Only [facility] MEDICINE [address] [place] [address] Pam Torres ANP [address] [place] [address] Atherosclerosis of coronary artery of barrow heart without angina pectoris, unspecified vessel or lesion type Social History Tobacco Use Types Packs/Day Years Used Date Smoking Tobacco: Former Cigarettes Smokeless Tobacco: Never Alcohol Use Standard Drinks/Week Comments Not Currently 0 (1 standard drink = 0.6 oz pur e alcohol) Depression Answer Date Recorded Patient Health Questionnaire-9 Score 0 12/15/2022 Housing Stability Answer Date Recorded What is your housing situation today? I have carroll obando 03/17/[address] you li ve. Do you have problems with any of the following? None of the above 03/17/2023 Food Insecurity Answer Date Recorded Within the past 12 months, y ou worried that your food would run out before you got money to buy more: Never True 03/17/2023 Within the past 12 months,th e food you bought just didn't last and you didn't have enough money to get more: Never True Transportation Answer Date Recorded In the past 12 months, has l ack of transportation kept you from medical appts, meetings, work or from getting things needed for daily living? No 03/17/2023 Utilities Answer Date Recorded In the past 12 months, has t he electric, gas, oil or water company threatened to shut off services in your home? No 03/17/2023 Depression Answer Date Recorded Patient Health Questionnaire-2 [...] Description 10/19/2024 2:00 PM EDT Office Visit [facility] MEDICINE [address] [place] [address] Pam Torres ANP [address] [place] [address] documented as of this encounter Goals Goal Patient Goal Type Associated Problems Recent Progress Patient-Stated? Author Take your medication every day Lifestyle Improving( 1:38 PM EST) Maria Luisa Green, PharmD documented as of this encounter Visit Diagnoses Diagnosis Atherosclerosis of coronary artery of barrow heart without angina pectoris, unspecified vessel or lesion type documented in this encounter Additional Health Concerns Assessment Noted Time PHQ-9 Depression Total Score: 0 12/16/19 23 9:41 AM EDT documented as of this encounter Care Teams Subacute Nurse Relationship Specialty Start Date End Date Pam Torres ANP [address] [place] [address] PCP - General Family Medicine 03/13/22 Misty Griffin RN [address] [place] [address] Assistant Boys Track CoachSupervisor Lump Room 08/30/23 Julianne Barr Community Health Worker Case Management 10/28/23 documented as of this encounter
--- OUTSIDE RECORDS SUMMARY | 2024-10-12 15:10 | XMS_ITS | Clinical Summary ---
Author Organization [facility] Address [address] [place] [address] Care Team Providers Care Interior Design Director Name Role Phone Pipo Latif MD Primary Care Provider [phone] Immunizations Name Administration Dates Next Due Pfizer (ages 12 & older) YOLY S-CoV-2 COVID-19, mRNA, LNP-S, ann-sucrose, preservative free 12/12/2021 Pfizer SARS-CoV-2 COVID-19, mRNA, LNP-S, preservative free 04/20/2021,09/03/2020,08/06/2020 Surgical History Surgery Date Site/Laterality Comments CARDIAC PACEMAKER PLACEMENT PROCEDURE: CARDIAC PACEMAKER PLACEMENT; COMMENT: PowWow[facility] HERNIA REPAIR PROCEDURE: HERNIA REPAIR CARDIAC CATHETERIZATION PROCEDURE: CARDIAC CATHETERIZATION CORONARY ANGIOPLASTY WITH ST ENT PLACEMENT PROCEDURE: CORONARY ANGIOPLASTY WITH STENT PLACEMENT; COMMENT: x3 Medical History Medical History Date Comments COPD (chronic obstructive pu lmonary disease) ([facility] V24, [facility] V28) DX: COPD (chronic obstructive pulmonary disease) CHF (congestive heart failur e) ([facility] V24, [facility] V28) DX: CHF (congestive heart fa ilure) Hypertension DX: Hypertension Atrial fibrillation ([facility] V24, [facility] V28) DX: Atrial fibrillation Hyperlipidemia DX: Hyperlipidem ia Family History Medical History Relation Name Comments Heart disease Brother Valvular heart disease Brother Heart disease Father Hypertension Father Dementia Mother Diabetes Mother Heart attack Mother Heart disease Mother Diabetes Sister 1 Diabetes Sister 2 Diabetes Sister 3 Relation Name Status Comments Brother Father Mother Sister 1 Sister 2 Sister 3 Social History Tobacco Use Types Packs/Day Years Used Date Smoking Tobacco: Former Cigarettes Q uit: 05/31/2014 Smokeless Tobacco: Never Alcohol Use Standard Drinks/Week Comments Not Currently 0 (1 standard drink = 0.6 oz pur e alcohol) Sex and Gender Information Value Date Recorded Sex Assigned at Not on file Legal Sex Male 9:50 AM EST Gender Identity Not on file Sexual Orientation Not on file Obstetrics History Last Filed Vital Signs Vital Sign Reading Time Taken Comments Blood Pressure 115/69 08/18/2021 10:21 AM EDT Pulse 75 08/18/2021 10:21 AM EDT Temperature - - Respiratory Rate - - Oxygen Saturation - - Inhaled Oxygen Concentration - - Weight 92.1 kg (203 lb) 08/18/2021 10:21 AM EDT Height 170.2 cm (5' 7 ) 08/18/2021 10:21 AM EDT Body Mass Index 31.79 08/18/2021 10:21 AM EDT Plan of Treatment Health Maintenance Due Date Last Done Comments DTaP,Tdap,and Td Vaccines (1 - Tdap) 1969 Pneumococcal Vaccine: 50+ Years (1 of 2 - PCV) 1969 Zoster Vaccines (1 of 2) 02/05/2000 RSV Immunization Adult Patients (1 - Risk 60-74 years 1-dose series) 2010 Abdominal Aortic Aneurysm (AAA) Screen 05/06/2022 Cholesterol Screening (Lipid Panel) 05/06/2022 Colorectal Cancer Screening: Colonoscopy 05/06/2022 Depression Screening 05/06/2022 Falls Risk Assessment 05/06/2022 Hepatitis C Screening 05/06/2022 Lung Cancer Screening (Low Dose CT) 05/06/2022 Social Influencers of Health Screening 05/06/2022 Hypertension/CHF/CAD Annual BMP Blood Test 05/14/2022 COVID-19 Vaccine ( season) 2024 12/12/2021, 04/20/2021, 09/03/2020, Additional history exists Influenza Vaccine (Season Ended) 2025 HIB Vaccines Aged Out No longer eligi ble based on patient's age to complete this topic HPV Vaccines Aged Out No longer eligi ble based on patient's age to complete this topic Hepatitis A Vaccines Aged Out No long er eligible based on patient's age to complete this topic Hepatitis B Vaccines Aged Out No long er eligible based on patient's age to complete this topic IPV Vaccines Aged Out No longer eligi ble based on patient's age to complete this topic MMR Vaccines Aged Out No longer eligi ble based on patient's age to complete this topic Meningococcal ACWY Vaccine Aged Out N o longer eligible based on patient's age to complete this topic Meningococcal B Vaccine Aged Out No l onger eligible based on patient's age to complete this topic RSV Immunization Patients Under 20 months Aged Out No longer eligible based on patient's age to complete this topic Varicella Vaccines Aged Out No longer eligible based on patient's age to complete this topic Care Teams Interior Design Director Relationship Specialty Start Date End Date Pipo Latif MD PCP - General Family Medicine 02/18/21
--- OUTSIDE RECORDS SUMMARY | 2024-10-12 15:11 | XMS_ITS | Clinical Summary ---
Author Organization [employer] Address [address] [facility] [address] [place] [address] Care Team Providers Care Farmworker Rice Name Role Phone Brian Pam ALVARENGA Primary Care Provider [phone] Misty Griffin RN Unavailable [phone] Allergies No known active allergies Medications amiodarone (Pacerone) 200 MG tablet TAKE 1 TABLET BY MOUTH EVERY DAY 05/15/20 22 Active B Complex Vitamins (B-Complex/B-12 ) tablet take 1 tablet by oral route every day Active ferrous sulfate 324 MG EC tablet take 1 Tablet by Oral route 2 times every day Active amLODIPine (Norvasc) 5 MG tablet Take 1 tablet by mouth in the morning. 11/25/19 23 Active cholecalciferol (Vitamin D-3) 25 MCG (1000 UT) tablet Take 1 tablet by mouth in the morning. 11/21/19 23 Active clopidogrel (Plavix) 75 MG tablet Take 1 tablet by mouth in the morning. 11/25/19 23 Active lisinopril 5 MG tablet Take 1 tablet by mouth in the morning. 11/25/19 23 Active Ascorbic Acid (vitamin C) 1000 MG tablet Take 1 tablet by mouth in the morning. Active Blood Pressure kitIndications: Essential hypertension 1 kit in the morning. 1 kit 09/01/19 24 Active Icosapent Ethyl (Vascepa) 1 g capsuleIndicati ons:Atheroscler osis of coronary artery of [place] heart without angina pectoris, unspecified vessel or lesion type TAKE 1 CAPSULE BY MOUTH TWICE DAILY IN THE MORNING AND AT BEDTIME WITH FOOD. SWALLOW WHOLE WITH WATER DO NOT BREAK, CRUSH, DISSOLVE OR CHEW 180 capsule 3 03/14/20 24 Active ezetimibe (Zetia) 10 MG tabletIndicatio ns:CAD, multiple vessel TAKE 1 TABLET BY MOUTH EVERY MORNING 90 tablet 1 04/11/20 24 Active rosuvastatin (Crestor) 20 MG tabletIndicatio ns:Atherosclero sis of coronary artery of [place] heart without angina pectoris, unspecified vessel or lesion type TAKE 1 TABLET BY MOUTH AT BEDTIME 90 tablet 1 05/09/20 24 Active Breo Ellipta 200-25 MCG/ACT aerosol powderIndicatio ns:COPD mixed type (CMS/HCC) INHALE 1 PUFF BY MOUTH EVERY DAY AT THE SAME TIME RINSE MOUTH AFTER USING 60 each 2 07/20/19 25 Active carvedilol (Coreg) 12.5 MG tabletIndicatio ns:Essential hypertension,Hi story of DC (myocardial infarction) TAKE 1 TABLET BY MOUTH TWICE DAILY IN THE MORNING AND AT BEDTIME 60 tablet 2 09/22/19 25 Active Eliquis 5 MG tabletIndicatio ns:Paroxysmal atrial fibrillation (CMS/HCC) TAKE 1 TABLET BY MOUTH TWICE DAILY IN THE MORNING AND AT BEDTIME 60 tablet 2 09/22/19 25 Active Combivent Respimat 20-100 MCG/ACT inhalerIndicati ons:Chronic obstructive pulmonary disease, unspecified COPD type (CMS/HCC) INHALE 1 PUFF BY MOUTH FOUR TIMES DAILY MAY TAKE ADDITIONAL PUFFS NEEDED DO NOT EXCEED 6 PUFFS PER DAY 4 g 2 10/10/19 25 Active Farxiga 10 MG Take 1 tablet by mouth Once per day. 10/07/19 25 Active cetirizine (ZyrTEC) 5 MG tabletIndicatio ns:Generalized pruritus Take 1 tablet (5 mg) by mouth Once per day. 30 tablet 2 10/13/19 25 025 Active spironolactone (Aldactone) 25 MG tabletIndicatio ns:Generalized pruritus Take half tablet once daily. 15 tablet 1 10/13/19 25 Active furosemide (Lasix) 40 MG tablet Take 1 tablet by mouth 2 times daily. 025 Discontinued(A lternate therapy) carvedilol (Coreg) 12.5 MG tabletIndicatio ns:Essential hypertension,Hi story of DC (myocardial infarction) TAKE 1 TABLET BY MOUTH TWICE DAILY IN THE MORNING AND AT BEDTIME 60 tablet 2 06/12/19 25 025 Discontinued Eliquis 5 MG tabletIndicatio ns:Paroxysmal atrial fibrillation (CMS/HCC) TAKE 1 TABLET BY MOUTH TWICE DAILY IN THE MORNING AND AT BEDTIME 60 tablet 2 06/12/19 25 025 Discontinued ipratropium-alb uterol (Combivent Respimat) 20-100 MCG/ACT inhalerIndicati ons:Chronic obstructive pulmonary disease, unspecified COPD type (CMS/HCC) INHALE 1 PUFF BY MOUTH FOUR TIMES DAILY MAY TAKE ADDITIONAL PUFFS NEEDED DO NOT EXCEED 6 PUFFS PER DAY 4 g 2 07/10/19 25 025 Discontinued Active Problems Problem Noted Date Diagnosed Date Personal history of nicotine dependence 09/02/19 Fracture of toe 09/02/2023 Arrhythmia 12/14/2022 Atypical chest pain 12/14/2022 Chronic systolic heart failure 12/14/2022 Class 1 obesity 12/14/2022 History of BPH 12/14/2022 Hyperlipidemia 12/14/2022 ICD (implantable cardioverter-defibrillator) in place 12/14/2022 NSTEMI (non-ST elevated myocardial infarction) 0 12/14/2022 Ischemic cardiomyopathy 12/14/2022 BJ (obstructive sleep apnea) 12/14/2022 CAD (coronary artery disease) 12/14/2022 Afib 12/14/2022 Atrial fibrillation 12/14/2022 CAD, multiple vessel 05/20/2022 Chronic obstructive lung disease 05/20/2022 Essential hypertension 05/20/2022 Hx of cardiac pacemaker 05/20/2022 Atherosclerosis of coronary artery without angin a pectoris 06/06/2020 Paroxysmal atrial fibrillation 06/06/2020 Stage 2 chronic kidney disease 06/06/2020 Encounters Date Type Department Care Team Description 10/12/2024 1:40 PM EDT Office Visit [facility] [address] [place], [place] [id number] Generalized pruritus (Primary Dx) 10/08/2024 Refill [facility] MED[facility] [address] [place] [address] Pam Torres, ANP Chronic obstructive pulmonary disease, unspecified COPD type (CMS/HCC) 09/20/2024 Refill [facility] [address] [place], [place] [id number] Pam Torres, ANP Essential hypertension; History of DC (myocardial infarction); Paroxysmal atrial fibrillation (CMS/HCC) 08/11/2024 Population Health Risk Score [facility] () Department [address] [place] [address], [place] [address] Provider, Population Health Generic 08/04/2024 Telephone [facility] [address] [place], [place] [phone] Pam Torres ANP 07/19/2024 Refill [facility] [address] [place], [place] [phone] Pam Torres ANP COPD mixed type ([facility]) from Last 3 Months Immunizations Immunization Administration Dates Next Due Influenza High-dose Quadriva lent Preservative Free 02/09/2023,03/13/2022 Influenza, High Dose Seasona l, Preservative Free 02/07/2024 Pfizer Covid-19 Vaccine 12+ 03/01/2024,,12/12/2021 Pfizer Covid-19 Vaccine 12+ Bivalent 01/01/2023, 07/31/2022 Pneumococcal Conjugate PCV 20 03/13/2022 RSV Bivalent 06/16/2023 Tdap 03/30/2023 Zoster, Recombinant 03/30/2023,01/04/2023 Family History Medical History Relation Name Comments Diabetes Father Diabetes Mother Relation Name Status Comments Father Mother Social History Tobacco Use Types Packs/Day Years Used Date Smoking Tobacco: Former Cigarettes Smokeless Tobacco: Never Tobacco Cessation:Counseling Given: Not Answered Alcohol Use Standard Drinks/Week Comments Not Currently 0 (1 standard drink = 0.6 oz pur e alcohol) Depression Answer Date Recorded Patient Health Questionnaire-9 Score 0 12/15/2022 Housing Stability Answer Date Recorded What is your housing situation today? I do not have housing (Staying with others, in a hotel, in a fdc, living outside on the street, on a beach, in a car, or in a park 08/24/[address] you li ve. Do you have problems with any of the following? None of the above 08/24/2023 Food Insecurity Answer Date Recorded Within the [...] from getting things needed for daily living? Yes, it has kept me from medical appointments or getting medications. 08/24/2023 Utilities Answer Date Recorded In the past 12 months, has t he electric, gas, oil or water company threatened to shut off services in your home? No 03/17/2023 Depression Answer Date Recorded Patient Health Questionnaire-2 Score 2 01/19/2024 Sex and Gender Information Value Date Recorded Sex Assigned at Male 03/30/2022 10:20 AM EDT Legal Sex Male 10:20 AM EDT Gender Identity Male 03/30/2022 10:20 AM EDT Sexual Orientation Straight 03/30/2022 10 :20 AM EDT Last Filed Vital Signs Vital Sign Reading Time Taken Comments Blood Pressure 110/65 10/12/2024 1:27 PM EDT Pulse 73 10/12/2024 1:27 PM EDT Temperature 37.1 ??C (98.8 ??F) 10/12/2024 1:27 PM ED T Respiratory Rate 17 10/12/2024 1:27 PM EDT Oxygen Saturation 96% 04/24/2024 3:02 PM EST Inhaled Oxygen Concentration - - Weight 90.2 kg (198 lb 12.8 oz) 10/12/2024 1:27 PM EDT Height 170.2 cm (5' 7 ) 10/12/2024 1:27 PM EDT Body Mass Index 31.14 10/12/2024 1:27 PM EDT Plan of Treatment Upcoming Encounters Date Type Department Care Team (Late st Contact Info) Description 10/19/2024 2:00 PM EDT Office Visit [facility] MEDICINE [address] [place] [address] Pam Torres ANP [address] [place] [address] Health Maintenance Due Date Last Done Comments CT Colonography 1950 Colonoscopy 1950 Colorectal Cancer Screening 1950 FIT DNA/Cologuard 1950 FIT 1950 FOBT 1950 Lipid Panel 1950 Sigmoidoscopy 1950 Hepatitis C Screening 02/05[birth year]1968 SDOH Screening 08/23/2024 08/24/2023 COVID-19 Vaccine ( season) 2024 03/01/2024, 03/30/2023, 01/01/2023, Additional history exists Diabetes: Hemoglobin A1C 09/16/2024 09/17/2023 Depression Screening 01/18/2025 01/19/2024, 12/16/19 23 Alcohol/Substance Use Screening 04/24/2025 04/24/2024 Tobacco Screening 10/12/2025 10/12/2024 DTaP/Tdap/Td Vaccines (2 - Td or Tdap) 03/30/2033 03/30/2023 Pneumococcal Vaccine: 50+ Years Completed 03/13/2022 Zoster Vaccines Completed 03/30/2023, 01/04/2023 RSV Patients and Patients Aged 60 years or older Completed 06/16/2023 Influenza Vaccine Completed 02/07/2024, , 03/13/2022 HIB Vaccines Aged Out No longer eligi [...] patient's age to complete this topic Meningococcal Vaccine Aged Out No alayna emil eligible based on patient's age to complete this topic RSV under 20 months Aged Out No longe r eligible based on patient's age to complete this topic Rotavirus Vaccines Aged Out No longer eligible based on patient's age to complete this topic Goals Goal Patient Goal Type Associated Problems Recent Progress Patient-Stated? Author Take your medication every day Lifestyle Improving( 1:38 PM EST) No Maria Luisa Azar PharmD Procedures Procedure Name Priority Date/Time Associated Diagnosis Comments HEMOGLOBIN A1C Routine 09/17/2023 3:13 PM EDT Mixed hyperlipidemia Abnormal finding of blood chemistry, unspecified from Last 3 Months or Most Recently Relevant to Health Maintenance Results * Hemoglobin A1c (09/17/2023 3:13 PM EDT) Hemoglobin A1c 5.7 <6.0 % [facility] Comment:Hemoglobin A1C Refer ence Range Adults: 4.8 - 6.0 % Non diabetic: < 6.0 % Goal: < 7.0 %Additional Action Suggested: > 8.0 %Note: Hemoglobin A1c results are invalid for patients with abnormal amounts of HbF. Blood transfusions may impact the HbA1c concentration in the patient sample. Estimated Average Glucose 117 mg/dL [facility] Comment:eAG = Estimated ave rage glucose which is %A1C expressed asaverage glucose, using the formula of the Q5T-PialnedSlehziy Glucose study (ADAG), Diabetes Care, Vol.31,#8,Dec. 2007 Blood Venous blood specimen / Unknown 09/17/2023 3:13 PM EDT 09/17/2023 4:03 PM EDT [facility] BLOOD ORDERABLES Final Resul t [facility] [address] [place] [phone] from Last 3 Months or Most Recently Relevant to Health Maintenance Insurance [place] [address] [place] [id number] [facility] Care Teams Farmworker Rice Relationship Specialty Start Date End Date Pam Torres ANP [address] [place] [address] PCP - General Family Medicine 03/13/22 Misty Griffin RN [address] [place] [phone] Armature RepairerPedal Assembler 08/30/23 Julianne Barr Community Health Worker Case Management 10/28/23
--- OUTSIDE RECORDS SUMMARY | 2024-10-12 15:11 | XMS_ITS | Encounter Summary ---
Author Organization [employer] Address [address] [facility] [address] [place] [address] Care Team Providers Care Senior Business Analyst Name Role Phone Pam Torres Primary Care Provider [phone] Misty Griffin RN Unavailable [phone] Reason for Visit * Reason Comments Med Refill Encounter Details Date Type Department Care Team ([facility] st Contact Info) Description 10/08/2024 Refill [facility] MEDICINE [address] [place] [address] Pam Torres ANP [address] [place] [address] Chronic obstructive pulmonary disease, unspecified COPD type (CMS/HCC) Social History Tobacco Use Types Packs/Day Years [...] with others, in a hotel, in a custodial, living outside on the street, on a [...] Description 10/19/2024 2:00 PM EDT Office Visit [facility] MEDICINE [address] [place] [phone] Pam Torres ANP [address] [place] [phone] documented as of this encounter Goals Goal Patient Goal Type Associated Problems Recent Progress Patient-Stated? Author Take your medication every day Lifestyle Improving( 1:38 PM EST) Maria Luisa Green, PharmD documented as of this encounter Visit Diagnoses Diagnosis Chronic obstructive pulmonary disease, unspecified COPD type (CMS/[facility]) documented in this encounter Additional Health Concerns Assessment Noted Time PHQ-9 Depression Total Score: 0 12/16/19 23 9:41 AM EDT documented as of this encounter Care Teams Senior Business Analyst Relationship Specialty Start Date End Date Pam Torres ANP [address] [place] [phone] PCP - General Family Medicine 03/13/22 Misty Griffin RN [address] [place] [phone] Rim Fire Priming Tool SetterWell Services Operator 08/30/23 Julianne Barr Community Health Worker Case Management 10/28/23 documented as of this encounter
--- OUTSIDE RECORDS SUMMARY | 2024-10-12 15:11 | XMS_ITS | Encounter Summary ---
Author Organization [employer] Address [address] [place] [address] Care Team Providers Care List Of First Job Ideas Name Role Phone Pam Torres Primary Care Provider [phone] Misty Griffin RN Unavailable [phone] Reason for Visit * Reason Comments Rash Encounter Details Date Type Department Care Team ([facility] Contact Info) Description 10/12/2024 1:40 PM EDT Office Visit [facility] W[facility] [address] [place] [address] Generalized pruritus (Primary Dx) Social History Tobacco Use Types [...] with others, in a hotel, in a [place] [facility], living outside on the street, on a [...] AM EDT documented as of this encounter Last Filed Vital Signs Vital Sign Reading Time Taken Comments Blood Pressure 110/65 10/12/2024 1:27 PM EDT Pulse 73 10/12/2024 1:27 PM EDT Temperature 37.1 ??C (98.8 ??F) 10/12/2024 1:27 PM ED T Respiratory Rate 17 10/12/2024 1:27 PM EDT Oxygen Saturation - - Inhaled Oxygen Concentration - - Weight 90.2 kg (198 lb 12.8 oz) 10/12/2024 1:27 PM EDT Height 170.2 cm (5' 7 ) 10/12/2024 1:27 PM EDT Body Mass Index 31.14 10/12/2024 1:27 PM EDT documented in this encounter Plan of Treatment Upcoming Encounters Date Type Department Care Team (Late st Contact Info) Description 10/19/2024 2:00 PM EDT Office Visit [facility] MED[facility] [address] [place] [address] Pam Torres ANP [address] [place] [address] Scheduled Orders Name Type Priority Associated Diagnoses Orde r Schedule Comprehensive Metabolic Panel Lab Routine Generalized pruritus Expected: 10/12/2024 (Approximate), Expires: 10/12/2025 documented as of this encounter Goals Goal Patient Goal Type Associated Problems Recent Progress Patient-Stated? Author Take your medication every day Lifestyle Improving( 1:38 PM EST) No Maria Luisa Azar, Andreea documented as of this encounter Visit Diagnoses Diagnosis Generalized pruritus- Primary Unspecified pruritic disorder documented in this encounter Additional Health Concerns Assessment Noted Time PHQ-9 Depression Total Score: 0 12/16/19 23 9:41 AM EDT documented as of this encounter Care Teams List Of First Job Ideas Relationship Specialty Start Date End Date Pam Torres ANP [address] [place] [address] PCP - General Family Medicine 03/13/22 Misty Griffin RN [address] [place] [address] Stock ShaperMainframe Systems Administrator 08/30/23 Julianne Barr Community Health Worker Case Management 10/28/23 documented as of this encounter
[2024-10-12 16:31] LABS: Estimated Average Glucose 120 mg/dL; Hemoglobin A1C 169.1542 umol/L; Hemoglobin A1c % 5.8 % (<6.0); Total Hemoglobin (HGBA1C) 4289.0952 umol/L
[2024-10-12 16:48] LABS: Albumin Level 4.2 g/dL (3.5-5.0); Alkaline Phosphatase 82 U/L (39-117); Anion Gap 12 (12-20); Aspartate Amino Transferase 34 U/L (5-37); Bilirubin Total 0.7 mg/dL (0.0-1.0); Blood Urea Nitrogen 17 mg/dL (9-16); Calcium 9.4 mg/dL (8.4-10.2); Carbon Dioxide 22 mmol/L (22-29); Chloride 111 mmol/L (96-108); Cholesterol 129 mg/dL (<200); Estimated Glomerular Filt Rate 56; Glucose Random 106 mg/dL (60-115); HDL Cholesterol 43 mg/dL (>40); LDL Cholesterol Calculated 64 mg/dL (<100); Potassium 4.5 mmol/L (3.3-5.1); Sodium 140 mmol/L (135-145); Total Protein 6.8 g/dL (6.5-8.0); Triglycerides 114 mg/dL (<150)
[2024-10-12 16:53] LABS: Alanine Aminotransferase 32 U/L (0-40)
== END 2024-10-12 14:33 | disposition home or self-care (01) ==
LOC: HO.HHCL 14:32
PROVIDERS: Nurse Practitioner Primary Care; Visit Provider Nurse Practitioner
DX: E78.2 Mixed hyperlipidemia (principal); R73.03 Prediabetes; L29.9 Pruritus, unspecified
CPT/HCPCS: 36415; 80053; 80061; 83036

== ENCOUNTER 2024-11-23 12:22 | Outpatient (AMB) | payer MEDICARE, MEDICAID, SELFPAY ==
[2024-11-23 12:25] VITALS: BP 114/57; PULSE 57
--- NOTE | 2024-11-23 12:25 | A.OFFVIS_ITS ---
Vital Signs 11/23/24 12:25 Height 5 ft 7 in Weight 191 lb 12.835 oz BMI 30.0 BP 114/57 L Blood Pressure Location Lt brachial Position Sitting Pulse 57 Intake Visit Reasons: pre colonoscopy/Noemi menendez 09/07/2023 Intake Note: Victoriano presents in the office as a colonoscopy screening. CC: no concerns today! It Intern Required: No Allergies No Known Allergies Allergy (Verified 11/23/24 12:27) Medication List - Last Reconciled 11/23/24 by Bri Salvador CNP amiodarone 200 mg PO DAILY amlodipine 5 mg PO DAILY apixaban (Eliquis) 5 mg PO BID carvedilol 12.5 mg PO BID cholecalciferol (vitamin D3) 25 mcg PO DAILY clopidogrel 75 mg PO DAILY cyanocobalamin (vitamin B-12) 1,000 mcg PO DAILY dapagliflozin propanediol (Farxiga) 10 mg PO DAILY ezetimibe 10 mg PO DAILY fluticasone furoate-vilanterol 200-25 mcg/dose (Breo Ellipta) 1 ea inhalation DAILY furosemide 40 mg PO BID ipratropium-albuterol 20-100 mcg/actuation (Combivent Respimat) 1 puff inhalation Q6H PRN lisinopril 5 mg PO DAILY rosuvastatin 20 mg PO BEDTIME HPI HPI pre colonoscopy/Noemi menendez 09/07/2023: Details: Patient is a 74-year-old male with PMH of CHF, hypertension, hyperlipidemia, BJ, CAD and COPD. Last visit with MARIO Curry 09/07/2023 for pre colonoscopy screening. 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 Reports last colonoscopy (unsure on date) was completed in [facility] with finding of polyps. The patient reports daily bowel movements, typically soft unless dehydrated. Reports bloating has occurred for years without notable increase. Shares episodes occur approximately twice a week, primarily when inactive, with no associated pain, n/v, heartburn, or diarrhea. Activity includes playing chair volleyball and walking. Patient denies: fever/chills, appetite changes, regurgitation,dysphasia, unintentional wt loss, ab pain or melena/hematochezia. [facility]iology- Social History: Alcohol Use: None. Tobacco Use: Quit nearly 10 years ago. Drug Use: None. Occupation: Primarily inactive due to health issues, increasing activity recently. - family hx as below -denies personal hx of CA -tolerated anesthesia in the past wihout difficulty. [facility] Medical History (Updated 11/23/24 @ 12:34 by Bri Salvador CNP) Colon cancer screening ICD (implantable cardioverter-defibrillator) in place (~2020) CAD (coronary artery disease) Ischemic cardiomyopathy CHF (congestive heart failure) Afib Chronic anticoagulation Hypertension Hyperlipidemia BJ (obstructive sleep apnea) COPD (chronic obstructive pulmonary disease) Personal history of nicotine dependence Surgical History (Updated 11/23/24 @ 12:28 by SMOOTH Hartley) Hx of colonoscopy History of esophagogastroduodenoscopy (EGD) History of heart artery stent History of cardiac cath History of right inguinal hernia repair History of implantable cardiac defibrillator (ICD) Family History (Updated 11/23/24 @ 12:51 by Bri Salvador CNP) Mother Heart disease Father Heart disease Brother Heart disease Sister Kidney disease Social History Alcohol intake: former Comment: [facility] Patient Tobacco Use Status: Former Tobacco user Years Smoked: onset 13yo, 1ppd x 55yrs, 50pyh, quit 2017 service: No Current occupational status: unemployed Review of Systems Const Reports as per HPI ENT Reports as per HPI Card Reports as per HPI Resp Reports as per HPI GI Reports as per HPI Reports as per HPI Physical Exam Vital Signs: Last Vital Signs Pulse 57 11/23/24 12:25 BP 114/57 L 11/23/24 12:25 BMI result Body Mass Index 30.0 Const General: healthy appearing, no acute distress and well developed Nutritional Appearance: well nourished Orientation/consciousness: patient oriented x3 HEENT Head: Yes normal to inspection, Yes normocephalic and Yes atraumatic Face and sinus: Yes normal facial exam Eyes General: appearance normal, both eyes and all related structures Neck Neck: Yes normal visual inspection Resp Effort & Inspection: normal respiratory effort, able to speak in complete sentences, no tracheal deviation and symmetric chest movement Auscultation: clear to auscultation bilaterally Cardio Jugular venous distension: no JVD Rate: regular rate Rhythm: regular rhythm Heart sounds: S1 normal heart sound present, S2 normal heart sound present, no gallops and no murmurs GI Inspection: Yes normal to inspection, No distended and Yes obesity Palpation (GI): Soft to palpation, not firm, nontender and No hepatosplenomegaly present Auscultation: normal bowel sounds Neuro General: patient oriented x3 Gait exam (Neuro): Normal gait present Psych Appearance: grossly normal Mental Status: mental status grossly normal Speech and movement: Normal speech and movement present Affect: normal affect Attitude: cooperative Thought process: Normal thought process present Thought content: Normal thought content present Insight: Good insight present (Psych) Judgement: Good judgement present (Psych) Assessment & Plan Assessment & Plan (1) Colon cancer screening: Code(s): Z12.11 - Encounter for screening for malignant neoplasm of colon Category: Medical Plan: Due for polyp surveillance colonoscopy Medications: -prescriptions for laxative tablets and MiraLax sent to pharmacy; instructions for Gatorade purchase and clear liquid diet given. - understands Dapagliflozin and blood thinners will need to be held days prior to procedure. Nurse to review med holds per protocol. - Use Tylenol if needed for pain. Patient educated on scheduling process, procedure preparation, including avoiding certain foods and ensuring clear liquid intake Advised on necessity for ride post-procedure due to sedation. Plan Follow-up after colonoscopy or sooner as needed Time: I spent a total of 35 minutes on the date of encounter which includes: Preparing to see the patient (reviewed previous documentation, test results and medical history) Performing a medically appropriate exam and/or evaluation Ordering medications, tests, and procedures Documenting clinical information in the health record Medications: New polyethylene glycol 3350 (Miralax) per colonoscopy prep instructions 238 grams PO ONCE 238 grams 0RF bisacodyl Take four tablets once for 1 day per colonoscopy instructions 5 mg PO ONCE 4 tabs 0RF 1 day Coding Level of Care Code Established Pt Est Pt Level 4 (80037) Patient Type Established Diagnoses Colon cancer screening Z12.11
--- OUTSIDE RECORDS SUMMARY | 2024-11-23 14:43 | XMS_ITS | Encounter Summary ---
Author Organization [employer] Address [address] [place] [address] Care Team Providers Care Mobile Nurse Name Role Phone Pam Torres Primary Care Provider [phone] Misty Griffin RN Unavailable [phone] Encounter Details Date Type Department Care Team (Late st Contact Info) Description 04/01/2023 Orders Only [facility] [address] [place] [address] Pam Torres ANP [address] [place] [address] Atherosclerosis of coronary artery of [place] heart without angina pectoris, unspecified vessel or [...] as of this encounter Plan of Treatment Not on file documented as of this encounter Goals Goal Patient Goal Type Associated Problems Recent Progress Patient-Stated? Author Take your medication every day Lifestyle Improving( 1:38 PM EST) No Maria Luisa Azar, PharmD documented as of this encounter Visit Diagnoses Diagnosis Atherosclerosis of coronary artery of [place] heart without angina pectoris, unspecified vessel or lesion type documented in this encounter Additional Health Concerns Assessment Noted Time PHQ-9 Depression Total Score: 0 12/16/19 23 9:41 AM EDT documented as of this encounter Care Teams Mobile Nurse Relationship Specialty Start Date End Date Pam Torres ANP [address] [place] [address] PCP - General Family Medicine 03/13/22 Misty Griffin RN [address] [place] [address] Research DirectorPapier Mache Molder 08/30/23 Julianne Barr Community Health Worker Case Management 10/28/23 documented as of this encounter
== END 2024-11-23 13:00 | disposition home or self-care (01) ==
LOC: HO.HGI 12:23
PROVIDERS: Visit Provider Nurse Practitioner Family
DX: Z12.11 Encounter for screening for malignant neoplasm of colon (principal)
CPT/HCPCS: 99024

== ENCOUNTER → 2024-11-23 12:22 | Outpatient (BNVA) | payer MEDICARE, MEDICAID, SELFPAY | PROVIDERS: Visit Provider Nurse Practitioner Family | DX: Z12.11 Encounter for screening for malignant neoplasm of colon (principal) | CPT/HCPCS: 99212 ==

== ENCOUNTER 2025-01-17 03:12 | Emergency (ER) | payer MEDICARE, MEDICAID, SELFPAY ==
[2025-01-17] VITALS (8 sets, daily range): BP systolic 103–158; BP diastolic 37–80; PULSE 66–84; RESP 11–18; TEMP -17.7–36.8; O2SAT 97–99; BMI 31.0
--- NOTE | 2025-01-17 | ECG_ITS ---
Test Reason : DIZZINESS Blood Pressure : */* mmHG Vent. Rate : 67 BPM Atrial Rate : 67 BPM P-R Int : 262 ms QRS Dur : 114 ms QT Int : 442 ms P-R-T Axes : 63 -40 62 degrees QTcB Int : 467 ms Sinus rhythm with 1st degree A-V block Possible Left atrial enlargement Left axis deviation Minimal voltage criteria for LVH, may be normal variant ( Goyo product ) Anterior infarct , age undetermined Abnormal ECG When compared with ECG of 27-May-2024 09:28, Sinus rhythm has replaced Atrial flutter QRS axis Shifted left ST no longer elevated in Inferior leads ST no longer elevated in Lateral leads Referred By: Generic ED Physician Electronically Signed By: TESSIE WEBER MD
--- NOTE | ~2025-01-17 | XR_ITS ---
EXAMINATION: XR CHEST CLINICAL INFORMATION: Dizziness COMPARISON: May 19, 2024 TECHNIQUE: Frontal view of the chest was obtained. FINDINGS: Mild prominence of the interstitial markings in the perihilar regions. No consolidation pleural effusion or pneumothorax. No hyperinflation. Cardiomediastinal silhouette size is normal. Left-sided pacemaker with a single electrode leads in the right ventricle region. Multilevel spondylosis. Degenerative changes in the acromioclavicular joints. XR/XR chest 1V IMPRESSION: Probable mild interstitial lung edema in the correct clinical settings. Electronically signed by: Malcolm Hassan MD 01/17/2025 08:12 AM EDT
--- OUTSIDE RECORDS SUMMARY | 2025-01-17 03:57 | XMS_ITS | Encounter Summary ---
Author Organization [employer] Address [address] [place] [address] Care Team Providers Care Nuclear Powerplant Mechanic Helper Name Role Phone Pam Torres Primary Care Provider [phone] Misty Griffin RN Unavailable [phone] Encounter Details Date Type Department Care Team (Late st Contact Info) Description 04/01/2023 Orders Only [facility] [address] [place] [address] Pam Torres ANP [address] [place] [address] Atherosclerosis of coronary artery of [place] heart without angina pectoris, unspecified vessel or [...] Care Team (Late st Contact Info) Description 02/27/2025 1:00 PM EDT Office Visit [facility] [address] [place] [address] Pam Torres ANP [address] [place] [address] documented as of this encounter Goals Goal Patient Goal Type Associated Problems Recent Progress Patient-Stated? Author Take your medication every day Lifestyle Improving( 1:38 PM EST) Maria Luisa Green, PharmD documented as of this encounter Visit Diagnoses Diagnosis Atherosclerosis of coronary artery of [place] heart without angina pectoris, unspecified vessel or lesion type documented in this encounter Additional Health Concerns Assessment Noted Time PHQ-9 Depression Total Score: 0 12/16/19 23 9:41 AM EDT documented as of this encounter Care Teams Nuclear Powerplant Mechanic Helper Relationship Specialty Start Date End Date Pam Torres ANP [address] [place] [address] PCP - General Family Medicine 03/13/22 Misty Griffin RN [address] [place] [address] PickerLegal Writing Professor 08/30/23 Julianne Barr Community Health Worker Case Management 10/28/23 documented as of this encounter
--- OUTSIDE RECORDS SUMMARY | 2025-01-17 03:58 | XMS_ITS | Clinical Summary ---
Author Organization [facility] Address [address] [place] [address] Care Team Providers Care Animal Care Worker Name Role Phone Pipo Latif MD Primary Care Provider Immunizations Name Administration Dates Next Due Pfizer (ages 12 & older) YOLY S-CoV-2 COVID-19, mRNA, LNP-S, ann-sucrose, preservative free 12/12/2021 Pfizer SARS-CoV-2 COVID-19, mRNA, LNP-S, preservative free 04/20/2021,09/03/2020,08/06/2020 Surgical History Surgery Date Site/Laterality Comments CARDIAC PACEMAKER PLACEMENT PROCEDURE: CARDIAC PACEMAKER PLACEMENT; COMMENT: POINT Biomedical HERNIA REPAIR PROCEDURE: HERNIA REPAIR CARDIAC CATHETERIZATION PROCEDURE: CARDIAC CATHETERIZATION CORONARY ANGIOPLASTY WITH ST ENT PLACEMENT PROCEDURE: CORONARY ANGIOPLASTY WITH STENT PLACEMENT; COMMENT: x3 Medical History Medical History Date Comments COPD (chronic obstructive pu lmonary disease) ([facility] V24, [facility] V28) DX: COPD (chronic obstructive pulmonary disease) CHF (congestive heart failur e) ([facility] V24, [facility] V28) DX: CHF (congestive heart fa ilure) Hypertension DX: Hypertension Atrial fibrillation ([facility] V24, [facility] V28) DX: Atrial fibrillation Hyperlipidemia [...] Panel) 05/06/2022 Colorectal Cancer Screening: Colonoscopy 05/06/2022 Falls Risk Assessment 05/06/2022 Hepatitis C Screening 05/06/2022 Lung Cancer Screening (Low Dose CT) 05/06/2022 Social Influencers of Health Screening 05/06/2022 Hypertension/CHF/CAD Annual BMP Blood Test 05/14/2022 COVID-19 Vaccine ( season) 2024 12/12/2021, 04/20/2021, 09/03/2020, Additional history exists Depression Screening 05/31/2024 Influenza Vaccine (#1) 2025 HIB Vaccines Aged Out No longer [...] age to complete this topic Care Teams Animal Care Worker Relationship Specialty Start Date End Date Pipo Latif MD PCP - General Family Medicine 02/18/21
--- OUTSIDE RECORDS SUMMARY | 2025-01-17 03:58 | XMS_ITS | Clinical Summary ---
Author Organization [facility], Address [address] [place] [address] [place] [address] Phone Care Team Providers Care Dock Worker Name Role Phone Faiza, Marta Alexander MD Primary Care Provider U navailable Medications amiodarone (PACERONE) 200 MG tablet Take 200 mg by mouth Active amLODIPine (NORVASC) 5 MG tablet Take 1 tablet by mouth 3 Active Eliquis 5 MG tablet TAKE 1 TABLET BY MOUTH TWICE DAILY IN THE MORNING AND AT BEDTIME 2 Active ascorbic acid (VITAMIN C) 1000 MG tablet Take 1 tablet by mouth in the morning. Active B Complex Vitamins (B-Complex/B-12 ) tablet Active DULCOLAX 5 MG EC tablet TAKE 4 TABLETS BY MOUTH ONCE DAILY DIRECTED FOR COLONOSCOPY 5 Active carvedilol (COREG) 12.5 MG tablet TAKE 1 TABLET BY MOUTH TWICE DAILY IN THE MORNING AND AT BEDTIME 2 Active cetirizine (ZyrTEC) 5 MG tablet Take 5 mg by mouth every morning 5 Active cholecalciferol (VITAMIN D-3) 25 MCG (1000 UT) tablet Take 1 tablet by mouth in the morning. 3 Active clopidogrel (PLAVIX) 75 MG tablet Take 75 mg by mouth Active Farxiga 10 MG tablet Take 1 tablet by mouth in the morning. 5 Active ezetimibe (ZETIA) 10 MG tablet Take 10 mg by mouth Active ferrous sulfate 324 MG tablet delayed-release Acti ve Breo Ellipta 200-25 MCG/ACT aerosol powder INHALE 1 PUFF BY MOUTH EVERY DAY AT THE SAME TIME RINSE MOUTH AFTER USING Active furosemide (LASIX) 40 MG tablet See Instructions, TAKE 1 TABLET BY MOUTH EVERY MORNING and TAKE 1/2 TABLET BY MOUTH EVERY EVENING, # 45 tablet, Refills 3, Maintenance, 03/09/24 8:04:00 AM EDT, Instructions Replace Required Details, Route to Pharmacy Electronically, [facility], 168, cm, 07/28/23 14:32:00 EST, Height, 85.8, kg, 11/20/22 15:41:00 EDT, Dry Weight 1 Active Icosapent Ethyl 1 g capsule TAKE 1 CAPSULE BY MOUTH TWICE DAILY IN THE MORNING AND AT BEDTIME WITH FOOD. SWALLOW WHOLE WITH WATER DO NOT BREAK, CRUSH, DISSOLVE OR CHEW 2 Active Combivent Respimat 20-100 MCG/ACT inhaler INHALE 1 PUFF BY MOUTH FOUR TIMES DAILY MAY TAKE ADDITIONAL PUFFS NEEDED DO NOT EXCEED 6 PUFFS PER DAY 1 Active lisinopril 5 MG tablet Take 1 tablet by mouth in the morning. 3 Active polyethylene glycol (GLYCOLAX) 17 GM/SCOOP powder MIX 1 BOTTLE WITH LIQUID AND DRINK ONCE PER COLONOSCOPY instructions 5 Active rosuvastatin (CRESTOR) 20 MG tablet Take 20 mg by mouth at bed time Active spironolactone (ALDACTONE) 25 MG tablet Take 12.5 mg by mouth every morning Active Active Problems Problem Noted Date Diagnosed Date Chronic systolic heart failure 12/14/2022 Hyperlipidemia 12/14/2022 Ischemic cardiomyopathy 12/14/2022 Coronary arteriosclerosis 12/14/2022 Myocardial infarction 12/14/2022 Atrial fibrillation 12/14/2022 Chronic obstructive pulmonary disease 05/20/2022 H/O: cardiac pacemaker in situ 05/20/2022 Chronic kidney disease stage 2 06/06/2020 Essential hypertension 03/13/2020 Encounters Date Type Department Care Team Description 01/05/2025 3:00 PM EDT Office Visit [facility], [address] [place] [place] [address] Brain Adler MD Stage 3b chronic kidney disease (HCC) (Primary Dx); Hypertension; Chronic systolic congestive heart failure (HCC) 01/05/2025 Orders Only [facility], [address] [place] [address] Kusum Adame MA from Last 3 Months Immunizations Immunization Administration Dates Next Due Influenza Split High Dose Preservative Free IM 02/07/2024 Influenza, Unspecified 02/09/2023,03/13/2022 Pfizer Covid-19 Vaccine, Mrn a, LNP-S, PF, ann-sucrose, 30 mcg/0.3 mL 03/01/2024,03/30/2023 Pfizer SARS-COV-2 12/12/2021, 1,09/03/2020,2020 Pfizer SARS-CoV-2 Bivalent 3 0 mcg/0.3 mL 01/01/2023,07/31/2022 Pneumococcal Conjugate Pcv 20 03/13/2022 Rsv, Bivalent, Protein Subun it Rsvpref, Diluent Reconstitutd 06/16/2023 SARS-CoV-2, Unspecified 12/12/2021 Shingrix 03/30/2023,01/04/2023 Tdap 03/30/2023 Social History Tobacco Use Types Packs/Day Years Used Date Smoking Tobacco: Never Assessed Sex and Gender Information Value Date Recorded Sex Assigned at Not on file Legal Sex Male 3:02 PM EDT Gender Identity Not on file Sexual Orientation Not on file Last Filed Vital Signs Vital Sign Reading Time Taken Comments Blood Pressure 106/58 01/05/2025 3:09 PM EDT Pulse - - Temperature - - Respiratory Rate - - Oxygen Saturation - - Inhaled Oxygen Concentration - - Weight - - Height - - Body Mass Index - - Plan of Treatment Upcoming Encounters Date Type Department Care Team (Late st Contact Info) Description 07/06/2025 2:45 PM EST Office Visit [facility], [address] [place] [address] Brain Adler MD [address] [place] [address] [place] [address] Health Maintenance Due Date Last Done Comments Colorectal Cancer Screening: Annual FOBT 1999 Colorectal Cancer Screening: Colonoscopy 1999 Colorectal Cancer Screening: Sigmoidoscopy 1999 Influenza Vaccine (#1) 2025 4, 02/09/2023, 03/13/2022 Pneumococcal Vaccine: 50+ Years Completed 03/13/2022 Hepatitis B Vaccine Aged Out No longe r eligible based on patient's age to complete this topic Insurance Medicare Medicaid [place] Care Teams Dock Worker Relationship Specialty Start Date End Date [place], Marta Alexander MD [address] [place] [id number] PCP - General Family Medicine 01/17/24
--- NOTE | 2025-01-17 07:47 | ED.GENADULT ---
HPI - General Adult General Chief complaint: Dizziness Stated complaint: dizziness Time Seen by Provider: 01/17/25 07:26 Source: patient and EMS Mode of arrival: EMS Limitations: no limitations History of Present Illness ED Provider: DR. Curran HPI narrative: 74-year-old male came in by ambulance for evaluation of lightheadedness and dizziness started at 02:00 this morning stated that the symptoms started very severe he waited about 20 minutes before calling EMS because of persistence of his symptoms called EMS and came to the hospital. Patient with history of vertigo, patient's symptoms today triggered by changing position. By the time patient was seen in the ED has no symptoms no dizziness. Patient declined weakness or numbness, no SOB, no orthopnea, no PND, no lower extremity swelling. no CP, no palpitation, no abdominal pain. Related Data Home Medications ?Medication ?Instructions ?Recorded ?Confirmed carvedilol 12.5 mg tablet 12.5 mg PO BID 11/20/22 11/23/24 cholecalciferol (vitamin D3) 25 25 mcg PO DAILY 11/20/22 11/23/24 mcg (1,000 unit) tablet cyanocobalamin (vitamin B-12) 1,000 mcg PO DAILY 11/20/22 11/23/24 1,000 mcg tablet ezetimibe 10 mg tablet 10 mg PO DAILY 11/20/22 11/23/24 fluticasone furoate 200 1 ea inhalation DAILY 11/20/22 11/23/24 mcg-vilanterol 25 mcg/dose inhalation powder (Breo Ellipta) ipratropium 20 mcg-albuterol 100 1 puff inhalation Q6H PRN 11/20/22 11/23/24 mcg/actuation mist for inhalation Shortness Of Breath (Combivent Respimat) amiodarone 200 mg tablet 200 mg PO DAILY 05/03/23 11/23/24 apixaban 5 mg tablet (Eliquis) 5 mg PO BID 05/03/23 11/23/24 clopidogrel 75 mg tablet 75 mg PO DAILY 05/03/23 11/23/24 furosemide 40 mg tablet 40 mg PO BID 05/03/23 11/23/24 rosuvastatin 20 mg tablet 20 mg PO BEDTIME 05/03/23 11/23/24 amlodipine 5 mg tablet 5 mg PO DAILY 11/23/24 11/23/24 dapagliflozin propanediol 10 mg 10 mg PO DAILY 11/23/24 11/23/24 tablet (Farxiga) lisinopril 5 mg tablet 5 mg PO DAILY 11/23/24 11/23/24 Previous Rx's ?Medication ?Instructions ?Recorded bisacodyl 5 mg tablet,delayed 5 mg PO ONCE 1 day #4 tabs 11/23/24 release polyethylene glycol 3350 17 238 g PO ONCE #238 grams 11/23/24 gram/dose oral powder (Miralax) Allergies Allergy/AdvReac Type Severity Reaction Status Date / Time No Known Allergies Allergy Verified 01/17/25 03:18 Review of Systems Review of Systems: All other systems are reviewed and are negative Constitutional: Reports as per HPI and Reports no additional constitutional complaints Eyes: Reports as per HPI and Reports no additional eye complaints Reports system reviewed and no additional complaints, except as documented Cardiovascular: Reports as per HPI and Reports no additional cardiovascular complaints Respiratory: Reports as per HPI and Reports no additional respiratory complaints Gastrointestinal: Reports as per HPI and Reports no additional gastrointestinal complaints Genitourinary: Reports no additional female genitourinary complaints Musculoskeletal: Reports no additional musculoskeletal complaints Skin/Breast: Reports system reviewed and no additional complaints, except as docu Psychiatric: Reports no additional psychiatric complaints Endocrine: Reports no additional endocrine complaints Hematologic/Lymphatic: Reports no additional hematologic/lymphatic complaints Allergic/Immunologic: Reports no additional allergic/immunologic complaints Reports system reviewed and no additional complaints, except as documented and Reports Abnormal speech present [facility] Past Medical History Medical History Colon cancer screening ICD (implantable cardioverter-defibrillator) in place (~2020) CAD (coronary artery disease) Ischemic cardiomyopathy CHF (congestive heart failure) Afib Chronic anticoagulation Hypertension Hyperlipidemia BJ (obstructive sleep apnea) COPD (chronic obstructive pulmonary disease) Personal history of nicotine dependence Surgical History Hx of colonoscopy History of esophagogastroduodenoscopy (EGD) History of heart artery stent History of cardiac cath History of right inguinal hernia repair History of implantable cardiac defibrillator (ICD) Family History Family History Mother Heart disease Father Heart disease Brother Heart disease Sister Kidney disease Social History Social History Alcohol intake: former Comment: [facility] Patient Tobacco Use Status: Former Tobacco user Years Smoked: onset 13yo, 1ppd x 55yrs, 50pyh, quit 2018 Smoked in Last 30 Days: No Use of substances other than those prescribed or required for medical reasons: No Advance Directives: No Advance Directives Information Provided: No service: No Current occupational status: unemployed Physical Exam ED Vital Signs: Vital Signs - 24 hr 01/17/25 03:17 01/17/25 03:43 01/17/25 04:43 Temperature 98.2 F 98.2 F Pulse Rate 70 67 66 Respiratory Rate 18 11 L Blood Pressure 103/37 L 125/68 119/64 Pulse Oximetry 97 97 Oxygen Delivery Method Room Air Room Air 01/17/25 04:45 01/17/25 04:47 01/17/25 10:51 Temperature Pulse Rate 72 74 84 Respiratory Rate 16 Blood Pressure 115/54 L 108/61 151/76 H Pulse Oximetry 98 Oxygen Delivery Method Room Air BMI result Body Mass Index 31.0 Vital signs have been reviewed and appear to be correct. Blood pressure elevated. Heart rate normal. Respiratory rate normal. Temperature normal. Oxygen saturation normal. Appearance: Alert. Oriented X3. No acute distress. Head: Normal external exam. Normocephalic. Atraumatic. No Pride signs noted. No raccoon eyes noted Eyes: PERRLA. EOMI. Conjunctiva and sclera normal. Eyelids normal. ENT: TM's Normal. Pharynx normal. Uvula midline. Moist mucous membranes. No trismus noted. No drooling noted. No muffled voice noted. Neck: Normal inspection. Neck supple. FROM. No adenopathy. Thyroid Normal. No meningeal signs. No neck mass noted. CVS: Normal heart rate and rhythm. Heart sound normal. No murmurs noted. Pulses normal throughout. Respiratory: No respiratory distress. Painless inspiration. Breath sounds normal. No wheezes/rales/rhonchi noted. Chest nontender. No accessory muscle usage noted or decreased air movement noted. Abdomen: Soft and nontender. Bowel sounds normal in all 4 quadrants. No distention noted. No organomegaly noted. No visible injury noted. Back: No CVA tenderness. Full range of motion noted. Skin: Skin warm and dry. Normal skin color. Normal skin turgor. No rashes/lesions/lacerations noted. Extremities: No lower extremity edema. Extremities exhibit normal range of motion. Extremities nontender. Neuro: Mental status: Normal attention, orientation, memory, and affect. Cranial nerves: Pupils are equal, round and reactive to light, EOMI, visual chang are fall, face is symmetric, facial sensations are normal. Motor examination normal muscle tone, strength to 4 extremities. DTR are +2, planter's are flexor. Sensory exam; normal coordination, no ataxia, gait stable. Cerebellar exam: [id number] and [id number] is normal. Extrapyramidal system: No tremors, no rigidity with normal facial expressions. Pronator drift not present NIH Stroke Scale Time: 07:49 Level of Consciousness: Alert Level of Consciousness Questions: Answers both questions correctly Level of Consciousness Commands: Performs both tasks correctly Best Gaze: Normal Visual: No visual loss Facial Palsy: Normal Motor Arm (Right): No drift Motor Arm (Left): No drift Motor Leg (Right): No drift Motor Leg (Left): No drift Limb Ataxia: Absent Sensory: Normal Best Language: No aphasia Dysarthia: Normal Extinction and Inattention: No abnormality Score: 0 Course Reevaluation(s) Reevaluation #1: Patient with history of vertigo, feel dizzy only when he change positions, unremarkable labs, patient is walking steadily in the ED, normal neuro exam. Time: 13:47 Medical Decision Making Differential Diagnosis Differential Diagnoses: The differential diagnosis associated with the presentation includes (Acute on chronic vertigo, cardiac events, electrolyte derangement, severe anemia, dehydration.) Admission/Observation Consideration of admission/observation: Escalation of care including admission/observation considered Lab Data MDM Lab Attestation statement: I reviewed the patient's lab results. 01/17/25 08:14 01/17/25 08:14 Labs: Lab Results 01/17/25 01/17/25 Range/Units 08:14 13:06 WBC 7.5 (4.8-10.8) X10*3/uL RBC 5.07 (4.60-5.80) X10*6/uL Hgb 16.7 (14.0-18.0) g/dl Hct 47.9 (42.0-52.0) % MCV 94.5 (80.0-98.0) fL MCH 32.9 (27.0-33.0) pg MCHC 34.9 (31.0-36.0) g/dl RDW 13.2 (11.0-16.0) % Plt Count 158 L (160-400) X10*3/uL MPV 9.2 L (9.4-12.4) fL Immature Gran % (Auto) 0.3 (0.0-0.4) % Neut % (Auto) 60.7 (45-73) % Lymph % (Auto) 29.4 (20-40) % [place] % (Auto) 7.2 (2-11) % Eos % (Auto) 2.0 (0-4) % Baso % (Auto) 0.4 (0-2) % Lymph # (Auto) 2.2 (1.2-4.9) X10*3/uL [place] # (Auto) 0.5 (0.1-1.2) X10*3/uL Eos # (Auto) 0.2 (0.0-0.4) X10*3/uL Baso # (Auto) 0.0 (0.0-0.2) X10*3/uL Abs Immat Gran (auto) 0.02 (0.00-0.03) X10*3/uL Absolute Neuts (auto) 4.5 (2.0-8.3) x10*3/uL Absolute Nucleated RBC 0.000 (0.0-0.012) X10*3/uL Nucleated RBC % (auto) 0.0 (0.0-0.2) /100WBC Sodium 140 (135-145) mmol/L Potassium 4.7 (3.3-5.1) mmol/L Chloride 112 H (96-108) mmol/L Carbon Dioxide 22 (22-29) mmol/L Anion Gap 11 L (12-20) BUN 14 (9-16) mg/dL Creatinine 1.33 (0.5-1.4) mg/dL Estim Creat Clear Calc 52.0 Estimated GFR 53 Random Glucose 102 (60-115) mg/dL Calcium 8.9 (8.4-10.2) mg/dL Total Bilirubin 0.5 (0.0-1.0) mg/dL Direct Bilirubin 0.2 (0.0-0.5) mg/dL AST 36 (5-37) U/L ALT 46 H (0-40) U/L Alkaline Phosphatase 84 (39-117) U/L Troponin I High Sens 15.0 16.2 (<3.5-35.0) ng/L B-Natriuretic Peptide 333 H (<100) pg/mL Total Protein 6.5 (6.5-8.0) g/dL Albumin 4.2 (3.5-5.0) g/dL Lipase 19 (8-78) U/L Influenza Type A (PCR) NEGATIVE (Negative) Influenza Type B (PCR) NEGATIVE (Negative) RSV RNA Qual (PCR) NEGATIVE (Negative) SARS-CoV-2 RNA (RT-PCR) NEGATIVE (Negative) Independent Interpretation I performed an independent interpretation of an: Plain X-Ray (No acute intrathoracic pathology.) Radiology Impression Discussion of test interpretation with radiology: I have reviewed the radiologist's reading. Discharge Plan Discharge Clinical Impression: Dizziness Patient Disposition: Home, Self-Care Instructions: Dizziness (ED) Prescriptions: No Action carvedilol 12.5 mg tablet 12.5 mg PO BID ezetimibe 10 mg tablet 10 mg PO DAILY fluticasone furoate-vilanterol [Breo Ellipta] 200-25 mcg/dose blister with device 1 ea inhalation DAILY Combivent Respimat 20-100 mcg/actuation mist 1 puff INHALATION Q6H PRN (Reason: Shortness Of Breath) cyanocobalamin (vitamin B-12) 1,000 mcg Tablet 1,000 mcg PO DAILY cholecalciferol (vitamin D3) 25 mcg (1,000 unit) Tablet 25 mcg PO DAILY Eliquis 5 mg tablet 5 mg PO BID furosemide 40 mg tablet 40 mg PO BID amiodarone 200 mg tablet 200 mg PO DAILY rosuvastatin 20 mg tablet 20 mg PO BEDTIME clopidogrel 75 mg tablet 75 mg PO DAILY lisinopril 5 mg tablet 5 mg PO DAILY amlodipine 5 mg tablet 5 mg PO DAILY dapagliflozin propanediol [Farxiga] 10 mg tablet 10 mg PO DAILY bisacodyl 5 mg tablet,delayed release (DR/EC) 5 mg PO ONCE 1 Days Qty: 4 0RF Rx Instructions: Take four tablets once for 1 day per colonoscopy instructions polyethylene glycol 3350 [Miralax] 17 gram/dose powder 238 g PO ONCE Qty: 238 0RF Rx Instructions: per colonoscopy prep instructions Print Language: Iraqi
--- NOTE | 2025-01-17 08:04 | MHC.EDTECH ---
EKG was done by previous shift, DR. Curran said order is a duplicate.
[2025-01-17 08:20] LABS: Hematocrit 47.9 % (42.0-52.0); Hemoglobin 16.7 g/dl (14.0-18.0); Imm Gran Abs Auto 0.02 X10*3/uL (0.00-0.03); Imm Gran Pct Auto 0.3 % (0.0-0.4); Lymphocytes Absolute Auto 2.2 X10*3/uL (1.2-4.9); MANUAL DIFF FLAG NO; Mean Corpuscular HGB Conc 34.9 g/dl (31.0-36.0); Mean Corpuscular Hemoglobin 32.9 pg (27.0-33.0); Mean Corpuscular Volume 94.5 fL (80.0-98.0); NRBC Abs Auto 0.000 X10*3/uL (0.0-0.012); NRBC Pct Auto 0.0 /100WBC (0.0-0.2); Platelet Count 158 X10*3/uL (160-400); Red Blood Count 5.07 X10*6/uL (4.60-5.80); White Blood Count 7.5 X10*3/uL (4.8-10.8)
[2025-01-17 08:34] LABS: Alanine Aminotransferase 46 U/L (0-40); Albumin Level 4.2 g/dL (3.5-5.0); Alkaline Phosphatase 84 U/L (39-117); Anion Gap 11 (12-20); Aspartate Amino Transferase 36 U/L (5-37); Blood Urea Nitrogen 14 mg/dL (9-16); Calcium 8.9 mg/dL (8.4-10.2); Carbon Dioxide 22 mmol/L (22-29); Chloride 112 mmol/L (96-108); Creatinine Clr Calc Pharmacy 52.0; Estimated Glomerular Filt Rate 53; Lipase 19 U/L (8-78); Potassium 4.7 mmol/L (3.3-5.1); Sodium 140 mmol/L (135-145); Total Protein 6.5 g/dL (6.5-8.0)
[2025-01-17 08:40] LABS: B Type Natriuretic Peptide 333 pg/mL (<100)
[2025-01-17 08:42] LABS: Troponin-I High Sensitivity 15.0 ng/L (<3.5-35.0)
[2025-01-17 09:00] LABS: Resp Syncy Virus RNA Qual PCR NEGATIVE (Negative); SARS COV2 PCR INHOUSE NEGATIVE (Negative)
[2025-01-17 13:34] LABS: Troponin-I High Sensitivity 16.2 ng/L (<3.5-35.0)
== END 2025-01-17 14:11 | disposition home or self-care (01) ==
PROVIDERS: Emergency Provider Emergency Medicine; PCP Family Medicine
DX: R42 Dizziness and giddiness (principal); I44.0 Atrioventricular block, first degree; R94.31 Abnormal electrocardiogram [ECG] [EKG]; Z87.891 Personal history of nicotine dependence; Z03.818 Encounter for observation for suspected exposure to other biological agents ruled out; Z79.899 Other long term (current) drug therapy
CPT/HCPCS: 36415; 71045; 80048; 80076; 83690; 83880; 84484; 85025; 87637; 93005; 99283; 99284

== ENCOUNTER → 2025-01-17 03:25 | Outpatient (BNV) | payer MEDICARE, MEDICAID, SELFPAY | PROVIDERS: Emergency Provider Emergency Medicine; PCP Family Medicine; Visit Provider Internal Medicine Cardiovascular Disease | DX: I44.0 Atrioventricular block, first degree (principal) | CPT/HCPCS: 93010 ==

== ENCOUNTER → 2025-01-17 07:46 | Outpatient (BNV) | payer MEDICARE, MEDICAID, SELFPAY | PROVIDERS: Emergency Provider Emergency Medicine; PCP Family Medicine; Visit Provider Radiology Diagnostic Radiology | DX: R42 Dizziness and giddiness (principal) | CPT/HCPCS: 71045 ==

== ENCOUNTER 2025-03-17 07:40 | Outpatient (REF) | payer MEDICARE, SELFPAY ==
--- NOTE | ~2025-03-17 | CT_ITS ---
CLINICAL HISTORY: new onset dizziness CT head without contrast Comparison: None provided Findings: No intra-axial mass, midline shift, hydrocephalus, or acute hemorrhage. No significant atrophy-like change or white matter disease. The visualized paranasal sinuses and mastoid air cells predominantly clear. No mastoid effusions. The orbits are within normal limits. No skull fracture. IMPRESSION: 1. No acute intracranial findings. This document has been electronically signed by: Sirisha Sinha MD on 03/19/2025 16:49:52
--- OUTSIDE RECORDS SUMMARY | 2025-03-17 07:44 | XMS_ITS | Clinical Summary ---
Author Organization [employer] Address [address] [place] [address] Care Team Providers Care Photographic Machine Operator Name Role Phone Pam Torres COLETTE Primary Care Provider [phone] Misty Griffin RN Unavailable [phone] Brain Adler MD Unavailable [phone] Allergies No known active allergies Medications amiodarone (Pacerone) 200 MG tablet 05/15/20 22 Active B Complex Vitamins (B-Complex/B-12 ) tablet Active ferrous sulfate 324 MG EC tablet Active amLODIPine (Norvasc) 5 MG tablet Take 1 tablet by mouth in the morning. 11/25/19 23 Active cholecalciferol (Vitamin D-3) 25 MCG (1000 UT) tablet Take 1 tablet by mouth Once per day. 11/21/19 23 Active clopidogrel (Plavix) 75 MG tablet Take 1 tablet by mouth Once per day. 11/25/19 23 Active lisinopril 5 MG tablet Take 1 tablet by mouth Once per day. 11/25/19 23 Active Ascorbic Acid (vitamin C) 1000 MG tablet Take 1 tablet by mouth Once per day. Active Blood Pressure kitIndications: Essential hypertension 1 kit in the morning. 1 kit 09/01/19 24 Active Icosapent Ethyl (Vascepa) 1 g capsuleIndicati ons:Atheroscler osis of coronary artery of [place] heart without angina pectoris, unspecified vessel or lesion type TAKE 1 CAPSULE BY MOUTH TWICE DAILY IN THE MORNING AND AT BEDTIME WITH FOOD. SWALLOW WHOLE WITH WATER DO NOT BREAK, CRUSH, DISSOLVE OR CHEW 180 capsule 3 03/14/20 24 Active Farxiga 10 MG Take 1 tablet by mouth Once per day. 10/07/19 25 Active ezetimibe (Zetia) 10 MG tabletIndicatio ns:CAD, multiple vessel TAKE 1 TABLET BY MOUTH EVERY MORNING 90 tablet 1 10/20/19 25 Active rosuvastatin (Crestor) 20 MG tabletIndicatio ns:Atherosclero sis of coronary artery of [place] heart without angina pectoris, unspecified vessel or lesion type TAKE 1 TABLET BY MOUTH AT BEDTIME 90 tablet 1 11/21/19 25 Active carvedilol (Coreg) 12.5 MG tabletIndicatio ns:Essential hypertension,[place] story of [place] (myocardial infarction) TAKE 1 TABLET BY MOUTH TWICE DAILY IN THE MORNING AND AT BEDTIME 60 tablet 2 12/23/19 25 Active Eliquis 5 MG tabletIndicatio ns:Paroxysmal atrial fibrillation (CMS/HCC) (HCC) TAKE 1 TABLET BY MOUTH TWICE DAILY IN THE MORNING AND AT BEDTIME 60 tablet 2 12/23/19 25 Active cetirizine (ZyrTEC) 5 MG tabletIndicatio ns:Generalized pruritus TAKE 1 TABLET BY MOUTH EVERY MORNING 30 tablet 2 01/05/20 25 Active Combivent Respimat 20-100 MCG/ACT inhalerIndicati ons:Chronic obstructive pulmonary disease, unspecified COPD type (CMS/HCC) (HCC) INHALE 1 PUFF BY MOUTH FOUR TIMES DAILY MAY TAKE ADDITIONAL PUFFS NEEDED DO NOT EXCEED 6 PUFFS PER DAY 4 g 2 01/16/20 25 Active spironolactone (Aldactone) 25 MG tabletIndicatio ns:Generalized pruritus TAKE 1/2 TABLET BY MOUTH EVERY MORNING 15 tablet 1 01/23/20 25 Active Breo Ellipta 200-25 MCG/ACT aerosol powderIndicatio ns:COPD mixed type (CMS/HCC) (HCC) INHALE 1 PUFF BY MOUTH EVERY DAY AT THE SAME TIME RINSE MOUTH AFTER USING 60 each 2 03/05/20 25 Active Breo Ellipta 200-25 MCG/ACT aerosol powderIndicatio ns:COPD mixed type (CMS/HCC) (HCC) INHALE 1 PUFF BY MOUTH EVERY DAY AT THE SAME TIME RINSE MOUTH AFTER USING 60 each 2 10/20/19 25 025 Discontinued meclizine (Antivert) 25 MG tablet Take 1 tablet (25 mg) by mouth if needed in the morning, at noon, and at bedtime for dizziness. 30 tablet 01/19/20 25 025 Discontinued(T herapy completed) Active Problems Problem Noted Date Diagnosed Date Prediabetes 02/27/2025 Personal history of nicotine dependence 09/02/19 Fracture of toe 09/02/2023 Arrhythmia 12/14/2022 Atypical chest pain 12/14/2022 Chronic systolic heart failure 12/14/2022 Class 1 obesity 12/14/2022 History of BPH 12/14/2022 Hyperlipidemia 12/14/2022 ICD (implantable cardioverter-defibrillator) in place 12/14/2022 NSTEMI (non-ST elevated myocardial infarction) 0 12/14/2022 Ischemic cardiomyopathy 12/14/2022 BJ (obstructive sleep apnea) 12/14/2022 CAD (coronary artery disease) 12/14/2022 Afib (CMS/HCC) 12/14/2022 Atrial fibrillation (CMS/HCC) 12/14/2022 CAD, multiple vessel 05/20/2022 Chronic obstructive lung disease 05/20/2022 Essential hypertension 05/20/2022 Hx of cardiac pacemaker 05/20/2022 Atherosclerosis of coronary artery without angin a pectoris 06/06/2020 Paroxysmal atrial fibrillation (CMS/HCC) 021 Stage 2 chronic kidney disease 06/06/2020 Encounters Date Type Department Care Team Description 03/04/2025 Refill [facility] [address] [place] [phone] Pam Torres ANP COPD mixed type (CMS/HCC) ([facility]) 02/27/2025 1:00 PM EDT Office Visit [facility] [address] [place] [phone] Pam Torres ANP Chronic atrial fibrillation (CMS/HCC) (Primary Dx); Ischemic cardiomyopathy; ICD (implantable cardioverter-defibri llator) in place; CAD, multiple vessel; Chronic systolic heart failure (CMS/HCC); BJ (obstructive sleep apnea); Dietary counseling; Exercise counseling; Prediabetes; Stage 3 chronic kidney disease, unspecified whether stage 3a or 3b CKD (CMS/HCC) 02/27/2025 Travel 02/26/2025 Telephone [facility] [address] [place] [address] Pam Torres ANP chart prep 02/20/2025 Travel 02/19/2025 Patient Outreach [facility] [address] [place] [address] Pam Torres ANP Pre-visit Planning (SDOH screening was completed on 10/19/2024) 01/20/2025 Refill [facility] [address] [place] [phone] Pam Torres ANP Generalized pruritus 01/19/2025 Results Follow-Up [facility] [address] [place] [phone] Ofelia Monzon RN CBC auto differential, Hepatic Function Panel, Basic Metabolic Panel, Additional followed-up results: 4 01/18/2025 10:20 AM EDT Office Visit [facility] [address] [address] Vesna Vázquez DO Dizziness (Primary Dx) 01/18/2025 Travel 01/17/2025 Orders Only [facility] External Provider, [facility] 01/14/2025 Refill [facility] [address] [place] [phone] Pam Torres ANP Chronic obstructive pulmonary disease, unspecified COPD type (CMS/HCC) 01/03/2025 Refill [facility] [address] [place] [phone] Kelly Zaman NP Generalized pruritus 12/22/2024 Refill [facility] [address] [place], [place] [phone] Pam Torres ANP Essential hypertension; History of [place] (myocardial infarction); Paroxysmal atrial fibrillation (CMS/HCC) from Last 3 Months Immunizations Immunization Administration Dates Next Due Influenza High-dose Quadriva lent Preservative Free 02/09/2023,03/13/2022 Influenza, High Dose Seasona l, Preservative Free 02/07/2024 Influenza, Unspecified 02/09/2023,03/13/2022 Pfizer Covid-19 Vaccine 12+ 03/01/2024, 3,12/12/2021 Pfizer Covid-19 Vaccine 12+ Bivalent 01/01/2023, 07/31/2022 Pneumococcal Conjugate PCV 20 03/13/2022 RSV Bivalent 06/16/2023 SARS-CoV-2, Unspecified 12/12/2021 Tdap 03/30/2023 Zoster, Recombinant 03/30/2023,01/04/2023 Family History [...] Answer Date Recorded Patient Health Questionnaire-9 Score 2 02/27/2025 Patient Health Questionnaire-9 Score 2 02/27/2025 Last PHQ-9: Questionnaire Data Not on file 0 02/27/2025 Housing Stability Answer Date Recorded What is your housing situation today? I have housing today, but I am worried about losing housing in the future 10/19/[address] you li ve. Do you have problems with any of the following? None of the above 10/19/2024 Food Insecurity Answer Date Recorded Within the past 12 months, y ou worried that your food would run out before you got money to buy more: Never True 10/19/2024 Within the past 12 months,th e food you bought just didn't last and you didn't have enough money to get more: Never True Transportation Answer Date Recorded In the past 12 months, has l ack of transportation kept you from medical appts, meetings, work or from getting things needed for daily living? No 10/19/2024 Utilities Answer Date Recorded In the past 12 months, has t he electric, gas, oil or water company threatened to shut off services in your home? No 10/19/2024 Depression Answer Date Recorded Patient Health Questionnaire-2 Score 0 02/27/2025 Internet Access Answer Date Recorded Internet Access Q1 Yes 10/19/2024 Internet Access Q2 Not on file 10/19/2024 Sex and Gender Information Value Date Recorded Sex Assigned at Male 03/30/2022 10:20 AM EDT Legal Sex Male 10:20 AM EDT Gender Identity Male 03/30/2022 10:20 AM EDT Sexual Orientation Straight 03/30/2022 10 :20 AM EDT Last Filed Vital Signs Vital Sign Reading Time Taken Comments Blood Pressure 100/60 02/27/2025 12:53 PM EDT Pulse 70 02/27/2025 12:53 PM EDT Temperature 36.4 C (97.6 F) 02/27/2025 12:53 PM EDT Respiratory Rate 20 02/27/2025 12:53 PM EDT Oxygen Saturation 97% 02/27/2025 12:53 PM EDT Inhaled Oxygen Concentration - - Weight 88.9 kg (196 lb) 02/27/2025 12:53 PM EDT Height 170.2 cm (5' 7 ) 02/27/2025 12:53 PM EDT Body Mass Index 30.7 02/27/2025 12:53 PM EDT Plan of Treatment Health Maintenance Due Date Last Done Comments CT Colonography 1950 Colonoscopy 1950 Colorectal Cancer Screening 1950 FIT DNA/Cologuard 1950 FIT 1950 FOBT 1950 Sigmoidoscopy 1950 Hepatitis C Screening 02/05/1968 Alcohol/Substance Use Screening 04/24/2025 04/24/2024 Diabetes: Hemoglobin A1C 10/12/2025 10/12/2024, 04/1 01/2024 SDOH Screening 10/19/2025 10/19/2024 Depression Screening 02/27/2026 02/27/2025, 02/28/20 Tobacco Screening 02/27/2026 02/27/2025 Lipid Panel 10/12/2029 10/12/2024 DTaP/Tdap/Td Vaccines (2 - Td or Tdap) 03/30/2033 03/30/2023 Pneumococcal Vaccine: 50+ Years Completed 03/13/2022 Zoster Vaccines Completed 03/30/2023, 01/04/2023 RSV Patients and Patients Aged 60 years or older Completed 06/16/2023 COVID-19 Vaccine Completed 02/09/2025, 07/2023, 03/30/2023, Additional history exists Influenza Vaccine Completed 02/09/2025, , 02/09/2023, Additional history exists HIB Vaccines Aged Out No longer eligi [...] Procedure Name Priority Date/Time Associated Diagnosis Comments HIGH SENSITIVITY TROPONIN I Routine 01/17/2025 1:06 PM EDT HIGH SENSITIVITY TROPONIN I Routine 01/17/2025 8:14 AM EDT B TYPE NATRIURETIC PEPTIDE (BNP) Routine 01/17/2025 8:14 AM EDT LIPASE Routine 01/17/2025 8:14 AM EDT BASIC METABOLIC PANEL Routine 01/17/2025 8:14 AM EDT HEPATIC FUNCTION PANEL Routine 01/17/2025 8:14 AM EDT CBC WITH AUTO DIFFERENTIAL Routine 01/17/2025 8:14 AM EDT SARS COV2/INFLUENZA A/B AND RSV RNA QL NAAT Routine 01/17/2025 8:14 AM EDT XR CHEST 1 VIEW Routine 01/17/2025 7:58 AM EDT HEMOGLOBIN A1C Routine 10/12/2024 2:35 PM EDT Mixed hyperlipidemia Prediabetes LIPID PANEL, STANDARD Routine 10/12/2024 2:35 PM EDT Mixed hyperlipidemia from Last 3 Months or Most Recently Relevant to Health Maintenance Results * High Sensitivity Troponin I (01/17/2025 1:06 PM EDT) Only the most recent of2 resultswithin the time period is included. TROPONIN I HIGH SENSITIVITY 16.2 <3.5 - 35.0 ng/L [facility] Comment:The [place] high sens itivity Troponin-I results should beused in conjunction with other diagnostic information suchas ECG, clinical observations and information, and patientsymptoms to aid in the diagnosis of [place]. 01/17/2025 1:06 PM EDT 01/17/2025 1:09 PM EDT us Generic External Data Provider LAB BLOOD ORDERAB LES Final Result [facility] [address] [place] [phone] * SARS-CoV-2 RNA, Influenza A/B, and RSV RNA, Ql NAAT (01/17/2025 8:14 AM EDT) Pathologist [facility] Influenza A PCR NEGATIVE Negative [facility] Influenza B PCR NEGATIVE Negative [facility] Resp Syncy Virus RNA Qual PCR NEGATIVE Negative [facility] SARS COV2 PCR NEGATIVE Negative [facility] Comment:All test results mus t be correlated with clinical findings.Negative results do not preclude SARS-CoV2, influenza Avirus, influenza B virus and/or RSV infectionand should not be used as the sole basis for treatment orother patient management decisions. Negative results must becombined with clinical observations, patient history, andepidemiological information.This test has not been evaluated for monitoring treatment ofinfection.This test has been authorized by the FDA under an EmergencyUse Authorization (EUA) for use by authorized laboratories.Testing performed on the [employer] GeneXpert utilizingreal-time RT-PCR.All SARS CoV2 and positive influenza A/B results arereported to [facility]. 01/17/2025 8:14 AM EDT 01/17/2025 8:17 AM EDT us Generic External Data Provider LAB MICROBIOLOGY - GENERAL ORDERABLES Final Result [facility] [address] [place] [phone] * (ABNORMAL) CBC auto differential (01/17/2025 8:14 AM EDT) White Blood Count 7.5 4.8 - 10.8 X10*3/uL [facility] Red Blood Count 5.07 4.60 - 5.80 X10*6/uL [facility] Hemoglobin 16.7 14.0 - 18.0 g/dl [facility] Hematocrit 47.9 42.0 - 52.0 % [facility] Mean Corpuscular Volume 94.5 80.0 - 98.0 fL [facility] Mean Corpuscular Hemoglobin 32.9 27.0 - 33.0 pg [facility] Mean Corpuscular HGB Conc 34.9 31.0 - 36.0 g/dl [facility] Red Cell Distribution Width 13.2 11.0 - 16.0 % [facility] Platelet Count 158(L) 160 - 400 X10*3/uL [facility] Mean Platelet Volume 9.2(L) 9.4 - 12.4 fL [facility] Neutrophils Percent Auto 60.7 45 - 73 % [facility] Imm Gran Pct Auto 0.3 0.0 - 0.4 % [facility] Lymphocytes Percent Auto 29.4 20 - 40 % [facility] Monocytes Percent Auto 7.2 2 - 11 % [facility] Eosinophils Percent Auto 2.0 0 - 4 % [facility] Basophils Percent Auto 0.4 0 - 2 % [facility] NRBC Pct Auto 0.0 0.0 - 0.2 /100WBC [facility] Neutrophils Absolute Auto 4.5 2.0 - 8.3 x10*3/uL [facility] Imm Gran Abs Auto 0.02 0.00 - 0.03 X10*3/uL [facility] Lymphocytes Absolute Auto 2.2 1.2 - 4.9 X10*3/uL [facility] Monocytes Absolute Auto 0.5 0.1 - 1.2 X10*3/uL [facility] Eosinophils Absolute Auto 0.2 0.0 - 0.4 X10*3/uL [facility] Basophils Absolute Auto 0.0 0.0 - 0.2 X10*3/uL [facility] NRBC Abs Auto 0.000 0.0 - 0.012 X10*3/uL [facility] 01/17/2025 8:14 AM EDT 01/17/2025 8:17 AM EDT us Generic External Data Provider LAB BLOOD ORDERAB LES Final Result Performing Organization Address [facility] Co de Phone Number [facility] [address] [place] [phone] * (ABNORMAL) B Type Natriuretic Peptide (BNP) (01/17/2025 8:14 AM EDT) B Type Natriuretic Peptide 333(H) <100 pg/mL [facility] 01/17/2025 8:14 AM EDT 01/17/2025 8:17 AM EDT us Generic External Data Provider LAB BLOOD ORDERAB LES Final Result Performing Organization Address City/[facility] Co de Phone Number [facility] [address] [place] [phone] * Lipase (01/17/2025 8:14 AM EDT) Lipase 19 8 - 78 U/L [facility] 01/17/2025 8:14 AM EDT 01/17/2025 8:17 AM EDT us Generic External Data Provider LAB BLOOD ORDERAB LES Final Result Performing Organization Address City/[facility] Co de Phone Number [facility] [address] [place] [address] [phone] * (ABNORMAL) Hepatic Function Panel (01/17/2025 8:14 AM EDT) [facility] Bilirubin, Total 0.5 0.0 - 1.0 mg/dL [facility] Bilirubin, Direct 0.2 0.0 - 0.5 mg/dL [facility] Aspartate Amino Transferase 36 5 - 37 U/L [facility] Alanine Aminotransferase 46(H) 0 - 40 U/L [facility] Total Protein 6.5 6.5 - 8.0 g/dL [facility] Albumin Level 4.2 3.5 - 5.0 g/dL [facility] Alkaline Phosphatase 84 39 - 117 U/L [facility] 01/17/2025 8:14 AM EDT 01/17/2025 8:17 AM EDT Generic External Data Provider LAB BLOOD ORDERAB LES Final Result [facility] [address] [place] [phone] [phone] * (ABNORMAL) Basic Metabolic Panel (01/17/2025 8:14 AM EDT) [facility] Sodium 140 135 - 145 mmol/L [facility] Potassium 4.7 3.3 - 5.1 mmol/L [facility] Chloride 112(H) 96 - 108 mmol/L [facility] Carbon Dioxide 22 22 - 29 mmol/L [facility] Anion Gap 11(L) 12 - 20 [facility] Urea Nitrogen (BUN) 14 9 - 16 mg/dL [facility] Creatinine, Serum 1.33 0.5 - 1.4 mg/dL [facility] Creatinine Clr Calc Pharmacy 52.0 [facility] Comment:eGFR (calculated fro m the MDRD study equation) and eCrCl(calculated from the Cockcroft-Gault equation) are based ondifferent parameters and may not yield comparable results.If eCrCl result is absurd, please check patient'sheight/weight. Estimated Glomerular Filt Rate 53 [facility] Comment:Chronic Kidney Disea se: Estimated GFR < 60 mL/min/1.54n1Inhdcx Kidney Disease: Estimated GFR < 15 mL/min/1.73m2 Glucose 102 60 - 115 mg/dL [facility] Calcium 8.9 8.4 - 10.2 mg/dL [facility] 01/17/2025 8:14 AM EDT 01/17/2025 8:17 AM EDT us Generic External Data Provider LAB BLOOD ORDERAB LES Final Result Performing Organization Address City/State/[facility] Co de Phone Number [facility] [address] [place] [address] [phone] * XR Chest 1 View (01/17/2025 7:58 AM EDT) Anatomical Region Laterality Modality Chest Radiographic Liv ging 01/17/2025 7:58 AM EDT Narrative 01/17/2025 8:15 AM EDT [place] [address] XRay Report Signed Patient: Victoriano Patricia MR#: [id number] : 1950 Acct:[id number] Age/Sex: 74 / M ADM Date: 01/17/25 Loc: .ED Attending Dr: Ordering Physician: Abhi Curran MD Date of Service: 01/17/25 Procedure(s): XR chest 1V Accession Number(s): [id number] cc: Marta Kendall MD; Abhi Curran MD EXAMINATION: XR CHEST CLINICAL INFORMATION: Dizziness COMPARISON: May 19, 2024 TECHNIQUE: Frontal view of the chest was obtained. FINDINGS: Mild prominence of the interstitial markings in the perihilar regions. No consolidation pleural effusion or pneumothorax. No hyperinflation. Cardiomediastinal silhouette size is normal. Left-sided pacemaker with a single electrode leads in the right ventricle region. Multilevel spondylosis. Degenerative changes in the acromioclavicular joints. XR/XR chest 1V IMPRESSION: Probable mild interstitial lung edema in the correct clinical settings. Electronically signed by: Malcolm Hassan MD 01/17/2025 08:12 AM EDT RP Dictated By: Malcolm Alan MD Signed By: <Electronically signed by Malcolm Monzon MD in OV> 01/17/25 0812 DD/ 0758 TD/TT: 01/17/25 0802 Child Protective Services Specialist: Procedure Note Donotuseinterpreter, Image - 01/17/2025 [place] [address] XRay Report Signed Patient: Victoriano PatriciaMR#: [id number] : 1950Acct:[id number] Age/Sex: 74 / MADM Date: 01/17/25 Loc: .ED Attending Dr: Ordering Physician: Abhi Curran MD Date of Service: 01/17/25 Procedure(s): XR chest 1V Accession Number(s): [id number] cc: Marta Kendall MD; Abhi Curran MD EXAMINATION: XR CHEST CLINICAL INFORMATION: Dizziness COMPARISON: May 19, 2024 TECHNIQUE: Frontal view of the chest was obtained. FINDINGS: Mild prominence of the interstitial markings in the perihilar regions. No consolidation pleural effusion or pneumothorax. No hyperinflation. Cardiomediastinal silhouette size is normal. Left-sided pacemaker with a single electrode leads in the right ventricle region. Multilevel spondylosis. Degenerative changes in the acromioclavicular joints. XR/XR chest 1V IMPRESSION: Probable mild interstitial lung edema in the correct clinical settings. Electronically signed by: Malcolm Hassan MD 01/17/2025 08:12 AM EDT RP Dictated By: Malcolm Alan MD Signed By: <Electronically signed by Malcolm Monzon MDin OV> 01/17/25 0812 DD/ 0758 TD/TT: 08/20/25 0802 Child Protective Services Specialist: [facility] External Provider IMG XR PROCEDURES Final Result * Hemoglobin A1c (10/12/2024 2:35 PM EDT) Hemoglobin A1c 5.8 <6.0 % [facility] Comment:Hemoglobin A1C Refer ence Range Adults: 4.8 - 6.0 % Non diabetic: < 6.0 % Goal: < 7.0 %Additional Action Suggested: > 8.0 %Note: Hemoglobin A1c results are invalid for patients with abnormal amounts of HbF. Blood transfusions may impact the HbA1c concentration in the patient sample. Estimated Average Glucose 120 mg/dL [facility] Comment:eAG = Estimated ave rage glucose which is %A1C expressed asaverage glucose, using the formula of the N1M-MikyjabAegdwrp Glucose study (ADAG), Diabetes Care, Vol.31,#8,Dec. 2007 Blood Venous blood specimen / Unknown 10/12/2024 2:35 PM EDT 10/12/2024 4:13 PM EDT [facility] LAB BLOOD ORDERABLES Final Resul t [facility] [address] [place] [phone] * Lipid Panel, Standard (10/12/2024 2:35 PM EDT) Triglycerides 114 <150 mg/dL [facility] Comment:Desirable Triglyceri de: less than 150 mg/dLBorderline High Triglyceride 150-199 mg/dLHigh Triglyceride: 200-499 mg/dLVery High Triglyceride: greater than or equal to 5OO mg/dL Cholesterol 129 <200 mg/dL [facility] Comment:Desirable Cholestero l: less than 200 mg/dLBorderline High Cholesterol: 200-239 mg/dLHigh Cholesterol: greater than 239 mg/dL LDL Cholesterol Calculated 64 <100 mg/dL [facility] Comment:Desirable LDL: less than 100 mg/dLNear Optimal/Above Optimal LDL: 110- 129 mg/dLBorderline High LDL: 130-159 mg/dLHigh LDL: 160-189 mg/dLVery High LDL: greater than or equal to 190 mg/dL HDL Cholesterol 43 >40 mg/dL [facility] Comment:Desirable HDL: great er than 40 mg/dL Note: This HDL assay may give artificially low results in patients with liver disease. Blood Venous blood specimen / Unknown 10/12/2024 2:35 PM EDT 10/12/2024 4:13 PM EDT us Pam ALVARENGA LAB BLOOD ORDERABLES Final Resul t [facility] [address] [place] [address] [phone] from Last 3 Months or Most Recently Relevant to Health Maintenance Insurance MEDICARE Care Teams Photographic Machine Operator Relationship Specialty Start Date End Date Pam Torres ANP [address] [place] [address] PCP - General Family Medicine 03/13/22 Misty Griffin RN [address] [place] [phone] Senior Operations AnalystSite Planner 08/30/23 [place] [address] [place] [phone] Nephrology 02/27/25 Julianne Barr Community Health Worker Case Management 10/28/23
--- OUTSIDE RECORDS SUMMARY | 2025-03-17 07:44 | XMS_ITS | Encounter Summary ---
Author Organization [employer] Address [address] [place] [address] [address] [place] [address] Care Team Providers Care Scrap Crane Operator Name Role Phone Pam Torres Primary Care Provider [phone] Misty Griffin RN Unavailable [phone] Brain Adler MD Unavailable [phone] Reason for Visit * Reason Onset Date Comments Medication Question 03/03/2023 Encounter Details Date Type Department Care Team ([facility] st Contact Info) Description 03/03/2023 Telephone [facility] [address] [place] [address] Pam Torres ANP [address] [place] [address] Medication Question Social History Tobacco Use Types [...] - 03/03/2023 11:50 AM EDT Tc from [facility] pharmacy requesting a call back to discuss if pt should be on both medications apixaban (Eliquis) 5 MG tablet clopidogrel (Plavix) 75 MG tablet documented in this encounter Plan of Treatment Not on file documented as of this encounter Visit Diagnoses Not on filedocumented in this encounter Additional Health Concerns Assessment Noted Time PHQ-9 Depression Total Score: 0 12/16/19 23 9:41 AM EDT documented as of this encounter Care Teams Scrap Crane Operator Relationship Specialty Start Date End Date Pam Torres ANP [address] [place] [address] PCP - General Family Medicine 03/13/22 Misty Griffin RN [address] [place] [phone] Laminating Machine FeederSolar Tech 08/30/23 [place] [address] [place] [phone] Nephrology 02/27/25 Julianne Barr Community Health Worker Case Management 10/28/23 documented as of this encounter
--- OUTSIDE RECORDS SUMMARY | 2025-03-17 07:44 | XMS_ITS | Encounter Summary ---
Author Organization [employer] Address [address] [facility] [address] [place] [address] Care Team Providers Care Consulting Psychiatrist Name Role Phone Pam Torres Primary Care Provider [phone] Misty Griffin RN Unavailable [phone] Brain Adler MD Unavailable [phone] Encounter Details Date Type Department Care Team (Late st Contact Info) Description 04/01/2023 Orders Only [facility] [address] [place] [address] Pam Torres ANP [address] [place] [address] Atherosclerosis of coronary artery of rin[place] heart without angina pectoris, unspecified vessel or [...] Diagnoses Diagnosis Atherosclerosis of coronary artery of rincon heart without angina pectoris, unspecified vessel or lesion type documented in this encounter Additional Health Concerns Assessment Noted Time PHQ-9 Depression Total Score: 0 12/16/19 9:41 AM EDT documented as of this encounter Care Teams Consulting Psychiatrist Relationship Specialty Start Date End Date Pam Torres ANP [address] [place] [address] PCP - General Family Medicine 03/13/22 Misty Griffin RN [address] [place] [address] Hanging Flags DecoratorHarvesting Supervisor 08/30/23 Brain Adler MD [address] [place] [address] Nephrology 02/27/25 Julianne Barr Community Health Worker Case Management 10/28/23 documented as of this encounter
--- OUTSIDE RECORDS SUMMARY | 2025-03-17 07:44 | XMS_ITS | Encounter Summary ---
Author Organization [facility] Address [address] [address] Phone Care Team Providers Care Furniture Stainer Name Role Phone Marta Kendall MD Primary Care Provider U fidelia Encounter Details Date Type Department Care Team (Late st Contact Info) Description 01/05/2025 Orders Only [facility] [address] [place] [address] Akash [place]ame[place]wood, [place] [address] [place] [address] Social History Tobacco Use Types Packs/Day Years Used Date Smoking Tobacco: Never Assessed Sex and Gender Information Value Date Recorded Sex Assigned at Not on file Legal Sex Male 3:02 PM EDT Gender Identity Not on file Sexual Orientation Not on file documented as of this encounter Plan of Treatment Upcoming Encounters Date Type Department Care Team (Late st Contact Info) Description 07/06/2025 2:45 PM EST Office Visit [facility] [address] [place] [address] Brain Adler MD [address] [place] [address] [place] [phone] documented as of this encounter Visit Diagnoses Not on filedocumented in this encounter Care Teams Furniture Stainer Relationship Specialty Start Date End Date Marta Kendall MD [address] [place] [address] PCP - General Family Medicine 01/17/24 documented as of this encounter
--- OUTSIDE RECORDS SUMMARY | 2025-03-17 07:44 | XMS_ITS | Clinical Summary ---
Author Organization [facility] Address [address] [place] [address] Care Team Providers Care Environmental Lead Name Role Phone Pipo Latif MD Primary Care Provider Immunizations Immunization Administration Dates Next Due Pfizer (ages 12 & older) YOLY S-CoV-2 COVID-19, mRNA, LNP-S, ann-sucrose, preservative free 12/12/2021 Pfizer SARS-CoV-2 COVID-19, mRNA, LNP-S, preservative free 04/20/2021,09/03/2020,08/06/2020 Surgical History Surgery Date Site/Laterality Comments CARDIAC PACEMAKER PLACEMENT PROCEDURE: CARDIAC PACEMAKER PLACEMENT; COMMENT: [employer] HERNIA REPAIR PROCEDURE: HERNIA REPAIR CARDIAC CATHETERIZATION PROCEDURE: CARDIAC CATHETERIZATION CORONARY ANGIOPLASTY WITH ST ENT PLACEMENT PROCEDURE: CORONARY ANGIOPLASTY WITH STENT PLACEMENT; COMMENT: x3 Medical History Medical History Date Comments COPD (chronic obstructive pu lmonary disease) ([facility] V24, [facility] V28) DX: COPD (chronic obstructive pulmonary disease) CHF (congestive heart failur e) ([facility] V24, [facility] V28) DX: CHF (congestive heart fa ilure) Hypertension DX: Hypertension Atrial fibrillation ([facility] V24, [facility] V28) DX: Atrial fibrillation Hyperlipidemia DX: Hyperlipidem [...] Date Last Done Comments Colorectal Cancer Screening: Colonoscopy 1950 DTaP,Tdap,and Td Vaccines (1 - Tdap) 1969 Pneumococcal Vaccine: 50+ Years (1 of 2 - PCV) 1969 Zoster Vaccines (1 of 2) 02/05/2000 Abdominal Aortic Aneurysm (AAA) Screen 05/06/2022 Cholesterol Screening (Lipid Panel) 05/06/2022 Falls Risk Assessment 05/06/2022 Hepatitis C Screening 05/06/2022 Lung Cancer Screening (Low Dose CT) 05/06/2022 Social Influencers of Health Screening 05/06/2022 Hypertension/CHF/CAD Annual BMP Blood Test 05/14/2022 Depression Screening 05/31/2024 COVID-19 Vaccine ( season) 2025 12/12/2021, 04/20/2021, 09/03/2020, Additional history exists Influenza Vaccine (#1) 2025 RSV Immunization Adult Patients (1 - 1-dose 75+ series) 2025 HIB Vaccines Aged Out No longer [...] age to complete this topic Care Teams Environmental Lead Relationship Specialty Start Date End Date Pipo Latif MD PCP - General Family Medicine 02/18/21
--- OUTSIDE RECORDS SUMMARY | 2025-03-17 07:44 | XMS_ITS | Encounter Summary ---
Author Organization [email or web address] Address [address] [facility] [address] [place] [address] Care Team Providers Care Graphic Engineer Name Role Phone Pam Torres COLETTE Primary Care Provider [phone] Misty Griffin RN Unavailable [phone] Brain Adler MD Unavailable [phone] Reason for Visit * Reason Onset Date Comments Med Refill 11/08/2024 Encounter Details Date Type Department Care Team (Late st Contact Info) Description 11/08/2024 Refill [facility] [address] [place] [address] Toro Curry MD [address] [place] [address] COPD mixed type (CMS/HCC) Social History Tobacco Use Types [...] Recorded Patient Health Questionnaire-2 Score 2 01/19/2024 Internet Access Answer Date Recorded Internet Access [...] Improving( 1:38 PM EST) No Maria Luisa Aazr, CorbyD documented as of this encounter Visit Diagnoses Diagnosis COPD mixed type (CMS/HCC) (HCC) documented in this encounter Additional Health Concerns Assessment Noted Time PHQ-9 Depression Total Score: 0 12/16/19 23 9:41 AM EDT documented as of this encounter Care Teams Graphic Engineer Relationship Specialty Start Date End Date Pam Torres ANP [address] [place] [address] PCP - General Family Medicine 03/13/22 Misty Griffin RN 505 [place] [address] Aircraft Load ControllerInspector Water Pollution Control 08/30/23 Brain Adler MD [address] [place] [address] Nephrology 02/27/25 Julianne Barr Community Health Worker Case Management 10/28/23 documented as of this encounter
--- OUTSIDE RECORDS SUMMARY | 2025-03-17 07:44 | XMS_ITS | Encounter Summary ---
Author Organization [employer] [facility] Address [address] [facility] 7t [place] [address] Care Team Providers Care Accounting Technician Name Role Phone Pam Torres Primary Care Provider Misty Griffin RN Unavailable [phone] Brain Adler MD Unavailable [phone] Encounter Details Date Type Department Care Team ([facility] st Contact Info) Description 05/27/2022 Orders Only [facility]S [address] [place], [place] [id number] Pam Torres ANP [address] [place] [address] Atherosclerosis of coronary artery of [place] heart without angina pectoris, unspecified vessel or [...] Diagnoses Diagnosis Atherosclerosis of coronary artery of [place] heart without angina pectoris, unspecified vessel or lesion type- Primary documented in this encounter Care Teams Accounting Technician Relationship Specialty Start Date End Date Pam Torres ANP [address] [place] [address] PCP - General Family Medicine 03/13/22 Misty Griffin, ALLY [address] [place] [address] Diamond Setter ApprenticeAssistant Service Manager 08/30/23 Brain Adler MD [address] [place] [address] Nephrology 02/27/25 Julianne Barr Community Health Worker Case Management 10/28/23 documented as of this encounter
--- OUTSIDE RECORDS SUMMARY | 2025-03-17 07:44 | XMS_ITS | Clinical Summary ---
Author Organization [facility], Address [address] [place] [address] [place] [address] Phone Care Team Providers Care Hotel Front Desk Clerk Name Role Phone Faiza, Marta Alexander MD [...] Replace Required Details, Route to Pharmacy Electronically, [facility], 168, cm, 07/28/23 14:32:00 EST, [...] Visit [facility] [place], [address] [place] [address] Brain Adler MD Stage 3b chronic kidney disease (HCC) (Primary Dx); Hypertension; Chronic systolic congestive heart failure (HCC) 01/05/2025 Orders Only [facility] [place], [address] [place] [address] Kusum Adame MA from Last 3 [...] Visit [facility] [place], [address] [place] [address] Brian Adler MD [address] [place] [address] [place] [address] Health Maintenance Due Date Last Done Comments Colorectal Cancer Screening: Annual FOBT 1999 Colorectal Cancer Screening: Colonoscopy 1999 Colorectal Cancer Screening: Sigmoidoscopy 1999 Influenza Vaccine (#1) 2025 4, 02/09/2023, 03/13/2022 Pneumococcal Vaccine: 50+ Years Completed 03/13/2022 Hepatitis B Vaccine Aged Out No longe r eligible based on patient's age to complete this topic Insurance Medicare Medicaid [place] Care Teams Hotel Front Desk Clerk Relationship Specialty Start Date End Date Clinch, Marta Alexander MD [address] [place] [address] PCP - General Family Medicine 01/17/24
--- OUTSIDE RECORDS SUMMARY | 2025-03-17 07:44 | XMS_ITS | Encounter Summary ---
Author Organization [employer] Address [address] [facility] [address] 7t [place] [address] Care Team Providers Care Car Installations Supervisor Name Role Phone Pam Torres COLETTE Primary Care Provider [phone] Misty Griffin RN Unavailable [phone] Brain Adler MD Unavailable [phone] Reason for Visit * Reason Onset Date Comments Med Refill 11/08/2024 Encounter Details Date Type Department Care Team ([facility] st Contact Info) Description 11/08/2024 Refill [facility] [address] [place] [address] Kelly Zaman NP [address] [place] [address] Generalized pruritus Social History Tobacco Use Types Packs/Day Years [...] of this encounter Visit Diagnoses Diagnosis Generalized pruritus Unspecified pruritic disorder documented in this encounter Additional Health Concerns Assessment Noted Time PHQ-9 Depression Total Score: 0 12/16/19 23 9:41 AM EDT documented as of this encounter Care Teams Car Installations Supervisor Relationship Specialty Start Date End Date Pam Torres ANP [address] [place] [address] PCP - General Family Medicine 03/13/22 Misty Griffin RN [address] [place] [address] Baffle InstallerCage Loader 08/30/23 Brain Adler MD [address] [place] [phone] Nephrology 02/27/25 Julianne Barr Community Health Worker Case Management 10/28/23 documented as of this encounter
--- OUTSIDE RECORDS SUMMARY | 2025-03-17 07:44 | XMS_ITS | Encounter Summary ---
Author Organization [employer] Address [address] [facility] 7t [place] [address] Care Team Providers Care Wastewater Design Engineer Name Role Phone Pam Torres Primary Care Provider [phone] Misty Griffin RN Unavailable Brain Adler MD Unavailable [phone] Reason for Visit * Reason Comments Med Refill Encounter Details Date Type Department Care Team (Late st Contact Info) Description 06/04/2022 Refill [facility]S [address] [place] [address] Marta Kendall MD [address] [place] [address] Social History Tobacco Use Types Packs/Day Years [...] 2:50 PM EST T/C placed to pt's motorboat mechanic inboard. Was on hold [id number]. They stated they do prescribe/manage it and will send a refill. Sending to PCP as FYI * Telephone Encounter - COLETTE Logan - 06/04/2022 5:32 PM EST I received a med refill request for amiodarone, but can you please call pt's motorboat mechanic inboard to confirm whether they are managing this med? Would appreciate their monitoring/management of med and do notwant to duplicate prescriptions. Looking in his chart, both cards and I have sent rosuvastatin refills within days of each other in the last week. Please also call pt to confirm if pt wants all meds sent to [facility], looks like he has transferred some from [facility]. documented in this encounter Plan of Treatment Not on file documented as of this encounter Visit Diagnoses Not on filedocumented in this encounter Care Teams Wastewater Design Engineer Relationship Specialty Start Date End Date Pam Torres ANP [address] [place] [address] PCP - General Family Medicine 03/13/22 Misty Griffin RN [address] [place] [address] Chemist SteroidsRegional Extension Service Specialist 08/30/23 Brain Adler MD [address] [place] [phone] Nephrology 02/27/25 Julianne Barr Community Health Worker Case Management 10/28/23 documented as of this encounter
--- OUTSIDE RECORDS SUMMARY | 2025-03-17 07:44 | XMS_ITS | Encounter Summary ---
Author Organization [employer] Address [address] [place] [address] [address] [place] [address] Care Team Providers Care Medical Case Worker Name Role Phone Pam Torres Primary Care Provider Misty Griffin RN Unavailable [phone] Brain Adler MD Unavailable [phone] Encounter Details Date Type Department Care Team (Late st Contact Info) Description 05/15/2022 Orders Only [facility] [address] [place] [address] Vesna Samuel LPN Social History Tobacco Use [...] on filedocumented in this encounter Care Teams Medical Case Worker Relationship Specialty Start Date End Date Pam Torres ANP [address] [place] [address] PCP - General Family Medicine 03/13/22 Misty Griffin, ALLY [address] [place] [address] Event Sales ManagerGeospatial Systems Integrator 08/30/23 Brain Adler MD [address] [place] [address] Nephrology 02/27/25 Julianne Barr Community Health Worker Case Management 10/28/23 documented as of this encounter
--- OUTSIDE RECORDS SUMMARY | 2025-03-17 07:44 | XMS_ITS | Encounter Summary ---
Author Organization [employer] Address [address] [place] [address] [address] [place] [address] Care Team Providers Care Curriculum Counselor Name Role Phone Pam Torres Primary Care Provider Misty Griffin RN Unavailable [phone] Brain Adler MD Unavailable [phone] Encounter Details Date Type Department Care Team (Late st Contact Info) Description 05/18/2022 Orders Only [facility] [address] [place] [address] Deborah Castellanos LPN Social History Tobacco Use [...] on filedocumented in this encounter Care Teams Curriculum Counselor Relationship Specialty Start Date End Date Pam Torres ANP [address] [place] [address] PCP - General Family Medicine 03/13/22 Misty Griffin, ALLY [address] [place] [address] Roll OperatorPlaster Mold Maker 08/30/23 Brain Adler MD [address] [place] [address] Nephrology 02/27/25 Julianne Barr Community Health Worker Case Management 10/28/23 documented as of this encounter
== END 2025-03-17 07:41 | disposition home or self-care (01) ==
LOC: HO.CT 07:40
PROVIDERS: PCP Family Medicine; Visit Provider Family Medicine
DX: R42 Dizziness and giddiness (principal)
CPT/HCPCS: 70450

== ENCOUNTER → 2025-03-17 07:42 | Outpatient (BNV) | payer MEDICARE, MEDICAID, SELFPAY | PROVIDERS: PCP Family Medicine; Visit Provider Radiology Diagnostic Radiology | DX: R42 Dizziness and giddiness (principal) | CPT/HCPCS: 70450 ==